=== PATIENT | female | born 1965 | race Caucasian/White ===

== ENCOUNTER 2023-10-21 19:05 | Emergency (ER) | payer MEDICARE, MEDICAID, SELFPAY ==
--- NOTE | 2023-10-21 19:04 | ECG_ITS ---
APPROVED REPORT Exam: Resting ECG HR:87 bpm ECG Measurements Heart Rate 87 AXES LA 209 P 35 QRSd 88 QRS 10 QT 356 T 31 QTc 400 Conclusion SINUS RHYTHM NORMAL ECG Electronically signed by : MARVA CRAWFORD, 10/25/2023 18:23:08
[2023-10-21 19:06] VITALS: BP 160/73; PULSE 87; RESP 18; TEMP 36.9; O2SAT 97; BMI 37.3
--- NOTE | 2023-10-21 19:18 | XR_ITS ---
PROCEDURE INFORMATION: Exam: XR Chest Exam date and time: 10/21/2023 7:39 PM Age: 60 years old Clinical indication: Shortness of breath; Additional info: SOA ll chest pain TECHNIQUE: Imaging protocol: Radiologic exam of the chest. Views: 1 view. COMPARISON: No relevant prior studies available. FINDINGS: Lungs: No evidence of acute pulmonary disease or infiltrates Pleural spaces: No large effusion or pneumothorax. Heart/Mediastinum: No evidence of mediastinal widening or cardiac silhouette enlargement; the mediastinum and heart appear within normal limits for contour and size. Vasculature: There are calcifications of the aortic arch. Bones/joints: No evidence of acute osseous abnormalities within the visualized portions of the thoracic spine and ribs. Osseous structures appear appropriate for patient age. IMPRESSION: No dense parenchymal consolidation, pleural effusion, or pneumothorax.
[2023-10-21 19:27] VITALS: PULSE 70; PULSE 87
[2023-10-21] MEDS: IPRATROPIUM/ALBUTEROL 3 ML NEB 9 ML IH (19:27)
[2023-10-21 19:29] LABS: Basophils # 0.1 K/mm3 (0-0.2); Basophils % 0.9 % (0.1-2.0); Eosinophils # 0.2 K/mm3 (0.0-0.4); Eosinophils % 2.7 % (0.1-12.0); Hematocrit 41.9 % (37.0-47.0); Hemoglobin 13.6 g/dL (12.2-16.2); Lymphocytes # 2.8 K/mm3 (0.7-4.5); Lymphocytes % 34.9 % (10-50); Mean Corpuscular HGB Conc 32.4 g/dL (31.8-35.4); Mean Corpuscular Hemoglobin 31.7 pg (27.0-31.2); Mean Corpuscular Volume 97.8 fl (81-99); Mean Platelet Volume 9.7 fl (7.4-10.4); Monocytes # 0.4 K/mm3 (0.1-1.0); Monocytes % 4.6 % (1.7-9.3); Neutrophils # 4.6 K/mm3 (1.8-7.8); Platelet Count 143 K/mm3 (142-424); Red Blood Count 4.28 M/mm3 (4.20-5.40); Red Cell Distribution Width 13.4 % (11.5-17.5)
[2023-10-21 19:30] LABS: Lactate Venous 1.6 mmol/L (0.4-2.0); VBG Base Excess 0.1 mmol/L (-2.4-2.3); VBG HCO3 25.3 mmol/L (23-30); VBG Oxygen Saturation 85.9 % (50-70); VBG PCO2 44.2 mmol/L (35-51); VBG PH 7.38 mmol/L (7.31-7.41); VBG PO2 49.2 mmol/L (28-40); VBG Total CO2 26.6 mmol/L (23-27)
[2023-10-21 19:34] LABS: INR 1.07 (0.9-1.1); Prothrombin Time 11.9 seconds (10.1-12.5)
[2023-10-21 19:35] LABS: Alanine Aminotransferase 23 U/L (12-78); Albumin/Globulin Ratio 1.4 (1.1-1.8); Aspartate Amino Transferase 25 U/L (14-36); Blood Urea Nitrogen 13 mg/dl (7-17); Calcium 8.9 mg/dl (8.4-10.2); Carbon Dioxide 29 mmol/L (22.0-30.0); Chloride 111 mmol/L (98-107); Creatinine Clearance Estimated 88 mL/min (50-200); Estimated Glomerular Filt Rate 73 ml/min (>60); GFR (African American) 88 ML/MIN (>60); Globulin 2.8 g/dL (1.3-3.2); Glucose 111 mg/dl (74-100); Total Protein,Serum 6.8 g/dl (6.3-8.2)
[2023-10-21 19:36] LABS: Alkaline Phosphatase 84 U/L (38-126); Bilirubin,Total 0.4 mg/dl (0.2-1.3); Sodium 143 mmol/L (136-145)
[2023-10-21 19:41] LABS: Anion Gap 6.8 mEq/L (5-15); Magnesium 1.7 mg/dl (1.6-2.3); Potassium 3.8 mmoL/L (3.5-5.1)
--- NOTE | 2023-10-21 19:44 | HMH.EDCP ---
Discharge Plan Disposition Patient Disposition: Home, Self-Care Prescriptions Prescriptions: New prednisone 20 mg tablet 40 mg PO DAILY 5 Days Qty: 10 0RF doxycycline monohydrate 100 mg capsule 100 mg PO BID 5 Days Qty: 10 0RF Activity Restrictions/Add. Instructions Additional Instructions/Restrictions: Call your family doctor to establish care for this visit to the emergency department and schedule follow-up within 48 hours to ensure improvement. If you have any worsening of your condition or any other concerning signs or symptoms, return to the emergency department or your primary care doctor for further evaluation. Talk to your family doctor about referral to cardiology. Doxycycline twice daily for 5 days. Prednisone each morning for the next 5 days. Clinical Impressions Clinical Impression: Acute exacerbation of chronic obstructive pulmonary disease Print Language Print Language: Turkmen Discharge ED Provider: Mook Tapia General Chief Complaint: Chest Pain Stated Complaint: Chest pain Time Seen by Provider: 10/21/23 19:07 Mode of Arrival: Ambulatory Source of Information: Patient Limitations: No Limitations Description of Symptoms (Recalled from ER Triage Doc. by RN): Patient ambulatory to ED; complains of mid sternal chest pain x2-3 days; Reports pain as worse in the left side of chest when she takes a breath; Slight cough with some SOA. History of Present Illness HPI narrative: Please note that above description of symptoms, in this electronic medical record under categorization of recalled from ER triage doctor by RN are reflective of an initial nursing assessment, however, is not reflective of my full history and physical exam that was personally taken and clarified. Consequentially, this preceding description of symptoms, which may include the patient's categorized chief complaint in the EMR, do not reflect my personal clinical impression, and the ultimate description of history of present illness and patient stated complaints should be deferred to this section of the note. Unless stated otherwise or congruent with this section of the note, additional signs, symptoms, or incongruence should be interpreted as inaccurate with my clinical impression. Related Data Previous Rx's ?Medication ?Instructions ?Recorded doxycycline monohydrate 100 mg 100 mg PO BID 5 days #10 caps 10/21/23 capsule prednisone 20 mg tablet 40 mg (2 x 20 mg) PO DAILY 5 days 10/21/23 #10 tabs Allergies Allergy/AdvReac Type Severity Reaction Status Date / Time No Known Allergies Allergy Verified 10/21/23 20:01 [facility] Disclaimer: The information contained in this section may have been updated after the patient was seen, as this information can be updated by other users. Social History Smoking Status: Current every day smoker alcohol intake: never current occupational status: employed Travel in the last 8 weeks: None ROS Obtained: Yes All systems reviewed & no additional complaints except as documented Physical Exam General General appearance: alert, in no apparent distress, anxious and obese Neck Neck exam: Present trachea midline Chest Chest inspection: Present normal inspection and symmetric chest wall rise Respiratory Respiratory exam: Present wheezes (Bilateral expiratory wheezes without breath sounds); Absent respiratory distress, stridor, accessory muscle use or prolonged expiratory phase Cardiovascular Cardiovascular exam: Present regular rate, normal rhythm and other (Pulses equal and symmetric in upper and lower extremities) Extremities Exam Extremities exam: Absent edema Neurological Exam Neurological exam: Present alert, oriented X3 and CN II-XII intact Skin Skin exam: Present warm and dry; Absent cyanosis, diaphoresis or pallor HEART Score HEART Score HEART Score assessment performed?: Yes HEART Score: 3 Critical Care Critical Care Time Critical Care Time: No Medical Decision Making Medical Records Medical records reviewed: Yes I reviewed the patient's medical records. Paul Inquiry Pt receiving controlled substance: No Paul was queried for this patient: No Vital Signs Vital Signs: 10/21/23 19:06 10/21/23 19:27 10/21/23 19:27 Temperature 98.5 F Temperature Source Axillary Pulse Rate 87 70 Pulse Rate [Right Radial] 87 Respiratory Rate 18 Blood Pressure [Right Arm] 160/73 H Blood Pressure Mean [Right Arm] 102 Blood Pressure Source [Right Arm] Automatic Cuff Blood Pressure Position [Right Arm] Supine 02 Sat by Pulse Oximetry 97 Oxygen Delivery Method Room Air Lab Data Labs: Lab Results 10/21/23 19:14: WBC 8.0, RBC 4.28, Hgb 13.6, Hct 41.9, MCV 97.8, MCH 31.7 H, MCHC 32.4, RDW 13.4, Plt Count 143, MPV 9.7, Neut % (Auto) 57.0, Lymph % (Auto) 34.9, [place] % (Auto) 4.6, Eos % (Auto) 2.7, Baso % (Auto) 0.9, Neut # (Auto) 4.6, Lymph # (Auto) 2.8, [place] # (Auto) 0.4, Eos # (Auto) 0.2, Baso # (Auto) 0.1, PT 11.9, INR 1.07, APTT 33.0 H, D-Dimer 0.59 H, Sodium 143, Potassium 3.8, Chloride 111 H, Carbon Dioxide 29, Anion Gap 6.8, BUN 13, Creatinine 0.80, Estimated Creat Clear 88, Estimated GFR 73, Est GFR ( Amer) 88, Glucose 111 H, Calcium 8.9, Magnesium 1.7, Total Bilirubin 0.4, AST 25, ALT 23, Alkaline Phosphatase 84, Troponin I 0.02, NT-Pro-B Natriuret Pep 488 H, Total Protein 6.8, Albumin 4.0, Globulin 2.8, Albumin/Globulin Ratio 1.4 10/21/23 19:18: VBG pH 7.38, VBG pCO2 44.2, VBG pO2 49.2 H, VBG HCO3 25.3, VBG Total CO2 26.6, VBG O2 Saturation 85.9 H, VBG Base Excess 0.1, VBG Lactic Acid 1.6 10/21/23 22:27: Troponin I 0.02 10/21/23 19:14 10/21/23 19:14 Response Orders (Tests/Meds): ED MEDICATIONS Generic Name Dose Route Start Last Admin Trade Name Freq PRN Reason Stop Dose Admin Sodium Chloride 10 ml 10/21/23 22:13 10/21/23 22:14 Sodium Chloride 0.9% 10ml Syr (Rad Only) IV 11/20/23 22:12 10 ml NEEDED PRN Administration Maintain IV Site Discontinued Medications Generic Name Dose Route Start Last Admin Trade Name Freq PRN Reason Stop Dose Admin Albuterol/Ipratropium 9 ml 10/21/23 19:18 10/21/23 19:27 Ipratropium/Albuterol 3 Ml Neb IH 10/21/23 19:19 9 ml ONCE ONE Administration Aspirin 324 mg 10/21/23 19:18 10/21/23 20:35 Aspirin 81mg Chewable Tablet PO 10/21/23 19:19 324 mg ONCE ONE Administration Iopamidol 70 ml 10/21/23 22:13 10/21/23 22:14 Iopamidol-370 (76%);100ml Bottle IV 10/21/23 22:14 70 ml ONCE ONE Administration Methylprednisolone Sodium Succinate 125 mg 10/21/23 19:18 10/21/23 20:35 Methylprednisolone Sod Succ 125mg Vial IV 10/21/23 19:19 125 mg ONCE ONE Administration Sodium Chloride 50 ml 10/21/23 22:13 10/21/23 22:14 0.9 % Sodium Chloride 50 Ml Vial IV 10/21/23 22:14 50 ml ONCE ONE Administration ORDERS Category Date Time Status CT angio chest PE protocol Stat Cat Scan 10/21/23 20:43 Completed XR chest portable Stat Exams 10/21/23 19:18 Completed Complete Blood Count Auto Diff Stat Lab 10/21/23 19:14 Completed Comprehensive Metabolic Panel Stat Lab 10/21/23 19:14 Completed D-Dimer Stat Lab 10/21/23 19:14 Completed Magnesium Stat Lab 10/21/23 19:14 Completed NT Pro Brain Natriuretic Pep. Stat Lab 10/21/23 19:14 Completed PT INR [Prothrombin Time INR] Stat Lab 10/21/23 19:14 Completed PTT [Activated Partial Thrombo Time] Stat Lab 10/21/23 19:14 Completed Troponin I Q3H Lab 10/21/23 22:27 Completed Troponin I Q3H Lab 10/22/23 01:30 Ordered Troponin I Stat Lab 10/21/23 19:14 Completed VBG [Venous Blood Gas] Stat RT 10/21/23 19:18 Completed MDM Narrative Medical Decision Narrative: 60-year-old female history of COPD presenting with chest pain. Patient states that she has had substernal chest pain that does not radiate for the past couple of days. Nonexertional, nonpositional. States that it is better after using her rescue inhalers, worse after the rescue inhalers wear off. States that it is more of a pressure not associated with vomiting, diaphoresis, or neurologic deficits. No new productive cough, fevers, chills, recent travel, or any other concerns. History was obtained via conversation with patient. On arrival, patient hemodynamically stable, alert, oriented x4, appropriate, GCS 15, moving all extremities spontaneously, pupils equal and reactive to light. Full physical exam performed and significant for anxious appearing woman who is in no acute distress. Lungs with bilateral wheezing anterior and posteriorly. Cardiac exam within normal limits without murmurs gallops rubs, no lower extremity edema, or pulses equal and symmetric in upper and lower extremities. Differential includes COPD exacerbation, pneumonia, bronchitis, ACS, AL, PE, pneumothorax, less likely aortic pathology given nonradiation of pain, no murmur, pulses equal and symmetric in no neurologic deficits. Patient was given aspirin, DuoNebs, Solu-Medrol for symptomatic management and correction of underlying abnormalities. Patient placed on continuous cardiac monitoring and continuous pulse ox with initial blood pressure 160/73, heart rate 70, saturation 97% on room air. Independent interpretation of EKG shows sinus rhythm 87 beats a minute no ST or T wave changes concern for acute ischemia. CA 209, QRS 88, QTc 400 ms. [place] normal. Workup independently interpreted and significant for negative initial troponin,, nonactionable CBC or chemistry. BNP mildly elevated at 488, VBG nonactionable. Coags normal. D-dimer mildly elevated at 0.59. On independent interpretation of imaging, no acute point cardiopulmonary space disease on chest x-ray. See radiology read for full review of final results. Heart score 3. Patient was placed in observation beginning at 7:30 PM in order to rule out evolving AL with delta troponins, obtain imaging and determine need for admission versus home-going. The patient was provided yearly exams, cardiac monitoring while awaiting results. Independent interpretation of results demonstrated negative CT PE, negative delta troponin with undetectably low troponin levels. On reevaluation, patient resting at baseline without any acute complaints, still having chest pressure, although it is a little bit better. I feel this is most likely sales representative advertising of mild COPD exacerbation given patient's progressively worsening symptoms, better with rescue inhalers. At this time, I feel patient is appropriate because patient at baseline without signs or symptoms of clinical decompensation, deemed appropriate for discharge. Results were relayed to patient who voiced understanding and were agreeable to outpatient management and follow up. I discussed my clinical impression with patient and answered all questions. At this time, the evidence for any other entities in the differential is insufficient to warrant any further testing or ED observation. This was explained as well. Advisory was given that persistent or worsening symptoms require further evaluation. I confirmed the understanding of this discussion.. Total observation time 3.5 hours. Parts Fabricator disclaimer Much of this encounter note is an electronic etch operator semiconductor wafers spoken language to printed text. Electronic etch operator semiconductor wafers of the spoken language may permit errors. Although I have reviewed the note, some errors may still exist.
[2023-10-21 19:47] LABS: D-Dimer 0.59 ug/mL (0.0-0.5); Troponin I 0.02 ng/ml (0.00-0.034)
[2023-10-21 19:51] LABS: NT Pro Brain Natriuretic Pep. 488 pg/mL (0-125)
[2023-10-21] MEDS: METHYLPREDNISOLONE SOD SUCC 125MG VIAL 125 MG IV (20:35)
[2023-10-21] MEDS: ASPIRIN 81MG CHEWABLE TABLET 324 MG PO (20:35)
--- NOTE | 2023-10-21 20:37 | PC.NURSE ---
rounded on pt, pt requested a blanket and has been provided with one at this time. pt does not have any questions nor concerns at this time.
--- NOTE | 2023-10-21 20:43 | CT_ITS ---
PROCEDURE INFORMATION: Exam: CTA Chest With Contrast Exam date and time: 10/21/2023 10:08 PM Age: 57 years old Clinical indication: Pain; Chest pressure; Additional info: Elevated dimer, pleuritic R chest wall pain TECHNIQUE: Imaging protocol: Computed tomographic angiography of the chest with contrast. Exam focused on the arteries. 3D rendering (Not supervised by radiologist): MIP and/or 3D reconstructed images were created by the technologist. Radiation optimization: All CT scans at this facility use at least one of these dose optimization techniques: automated exposure control; mA and/or kV adjustment per patient size (includes targeted exams where dose is matched to clinical indication); or iterative reconstruction. Contrast material: ISOVUE; Contrast volume: 70 ml; Contrast route: INTRAVENOUS (IV); COMPARISON: CR XR CHEST PORTABLE 10/21/2023 7:39 PM FINDINGS: Pulmonary arteries: There is no evidence for clinically relevant pulmonary arterial filling defect. Tiny distal filling defects may be present but are of dubious clinical significance. Aorta: There is atherosclerotic disease of the visualized aorta and its major branch vessels. Lungs: Scattered areas of bronchial wall thickening which are likely chronic inflammatory. A few areas of subpleural reticulation are noted, nonspecific. Pleural spaces: Unremarkable. No pneumothorax. No pleural effusion. Heart: Unremarkable. No cardiomegaly. No pericardial effusion. Lymph nodes: There are calcified mediastinal lymph nodes likely reflecting prior granulomatous disease. Spleen: There are multiple calcifications in the spleen most likely reflects small granulomas. Adrenal glands: The adrenal glands are thickened, a nonspecific finding. Bones/joints: There is diffuse degenerative disease of the visualized osseous structures. Soft tissues: Unremarkable. IMPRESSION: 1. No evidence for clinically relevant pulmonary arterial filling defect. 2. No dense parenchymal consolidation, pleural effusion, or pneumothorax.
[2023-10-21] MEDS: 0.9 % SODIUM CHLORIDE 50 ML VIAL IV (22:14)
[2023-10-21] MEDS: IOPAMIDOL-370 (76%);100ML BOTTLE 70 ML IV (22:14)
[2023-10-21] MEDS: SODIUM CHLORIDE 0.9% 10ML SYR (RAD ONLY) 10 ML IV (22:14)
[2023-10-21 23:05] LABS: Troponin I 0.02 ng/ml (0.00-0.034)
[2023-10-21 23:49] VITALS: BP 130/66; PULSE 80; RESP 20; TEMP 36.7; O2SAT 97
== END 2023-10-21 23:52 | disposition home or self-care (01) ==
PROVIDERS: Emergency Provider Emergency Medicine
DX: J44.1 Chronic obstructive pulmonary disease with (acute) exacerbation (principal); R07.9 Chest pain, unspecified; R06.02 Shortness of breath; R05.9 Cough, unspecified; F17.200 Nicotine dependence, unspecified, uncomplicated
CPT/HCPCS: 71045; 71275; 80053; 82803; 83735; 83880; 84484; 85025; 85378; 85610; 85730; 93005; 96374; 99285; J2919; J7620; Q9967

== ENCOUNTER 2023-11-16 12:12 | Outpatient (CLI) | payer MEDICARE, MEDICAID, SELFPAY ==
[2023-11-16 12:39] LABS: Basophils # 0.1 K/mm3 (0-0.2); Basophils % 1.2 % (0.1-2.0); Eosinophils # 0.2 K/mm3 (0.0-0.4); Eosinophils % 2.6 % (0.1-12.0); Hematocrit 44.2 % (37.0-47.0); Hemoglobin 14.1 g/dL (12.2-16.2); Lymphocytes # 2.5 K/mm3 (0.7-4.5); Lymphocytes % 32.9 % (10-50); Mean Corpuscular Hemoglobin 31.8 pg (27.0-31.2); Mean Corpuscular Volume 99.3 fl (81-99); Mean Platelet Volume 9.3 fl (7.4-10.4); Monocytes # 0.4 K/mm3 (0.1-1.0); Monocytes % 5.2 % (1.7-9.3); Neutrophils # 4.3 K/mm3 (1.8-7.8); Neutrophils % 58.2 % (37.0-80.0); Platelet Count 164 K/mm3 (142-424); Red Blood Count 4.45 M/mm3 (4.20-5.40); Red Cell Distribution Width 13.3 % (11.5-17.5); White Blood Count 7.5 K/mm3 (4.8-10.8)
[2023-11-17 16:14] LABS: Anti-Cyclic Citrullinated Pept 6 units (0-19)
[2023-11-20 03:36] LABS: D001-IgE D pteronyssinus <0.10 kU/L (Class 0); D002-IgE D farinae <0.10 kU/L (Class 0); E001-IgE Cat Dander <0.10 kU/L (Class 0); E005-IgE Dog Dander <0.10 kU/L (Class 0); E072-IgE Mouse Urine <0.10 kU/L (Class 0); G002-IgE Bermuda Grass <0.10 kU/L (Class 0); G006-IgE Timothy Grass <0.10 kU/L (Class 0); I006-IgE Cockroach, German <0.10 kU/L (Class 0); Immunoglobulin E, Total 98 IU/mL (6-495); M001-IgE Penicillium chrysogen <0.10 kU/L (Class 0); M002-IgE Cladosporium herbarum <0.10 kU/L (Class 0); M003-IgE Aspergillus fumigatus <0.10 kU/L (Class 0); M006-IgE Alternaria alternata <0.10 kU/L (Class 0); T001-IgE Maple/Box Elder <0.10 kU/L (Class 0); T003-IgE Common Silver Birch <0.10 kU/L (Class 0); T006-IgE Cedar, Mountain <0.10 kU/L (Class 0); T007-IgE Oak, White <0.10 kU/L (Class 0); T008-IgE Elm, American <0.10 kU/L (Class 0); T010-IgE Walnut <0.10 kU/L (Class 0); T011-IgE Maple Leaf Sycamore <0.10 kU/L (Class 0); T014-IgE Cottonwood <0.10 kU/L (Class 0); T015-IgE Ash, White <0.10 kU/L (Class 0); T022-IgE Pecan, Hickory <0.10 kU/L (Class 0); T070-IgE White Mulberry <0.10 kU/L (Class 0); W001-IgE Ragweed, Short <0.10 kU/L (Class 0); W011-IgE Thistle, Russian <0.10 kU/L (Class 0); W014-IgE Pigweed, Common <0.10 kU/L (Class 0); W018-IgE Sheep Sorrel <0.10 kU/L (Class 0)
[2023-11-29 03:43] LABS: Rheumatoid Factor IGM < 7 U (<7)
[2024-01-03 11:48] LABS: Antinuclear Antibodies (ANA) Negative
== END 2023-11-16 23:59 | disposition home or self-care (01) ==
LOC: LAB 12:15
PROVIDERS: Visit Provider Internal Medicine Pulmonary Disease
DX: J84.9 Interstitial pulmonary disease, unspecified (principal); J30.9 Allergic rhinitis, unspecified
CPT/HCPCS: 36415; 82785; 85025; 86003; 86038; 86200; 86225; 86235; 86431

== ENCOUNTER 2023-12-06 07:35 | Outpatient (CLI) | payer MEDICARE, MEDICAID, SELFPAY ==
--- NOTE | 2023-12-06 07:35 | NM_ITS ---
APPROVED REPORT Exam: Nuclear Stress Test Indication: Chest pain, SOB, Palpitations, Fatigue, HTN, High cholesterol, Tobacco use, Family history Patient Location: Outpatient Stress Tech: Valerie Lucio [place] Tech:Lyla Moulton, ARRT, RT (R)(N) Ht: 5 ft 3 in Wt: 222 lbs Bra Size: 42D HR: 65 bpm BP: 123/56 mmHg BSA: 2.02 m2 TID: 1.24 BMI: 39.3 History: Chest pain, SOB, Palpitations, Fatigue, HTN, High cholesterol, Tobacco use, Family history Procedure: Patient received 0.4 mg of intravenous Lexiscan, resting heart rate 65 bpm, resting blood pressure 123/56 mmHg, with Lexiscan maximum heart rate achieved was 95 bpm which is % of the maximum predicted heart rate and blood pressure was 136/61 mmHg. With Lexiscan, patient denied any complaint of chest pain. Cardiac Stress and Resting SPECT Images: Cardiac Stress and Resting SPECT images were obtained using technetium 99m Myoview 32.8 mCi stress and 10.43 mCi at rest. Resting and stress imaging in supine and prone positions demonstrate no evidence of fixed or reversible perfusion defects. There is increase in transient ischemic dilatation ratio (TID 1.24), suggestive of possible multivessel disease or balanced ischemia. Gated imaging demonstrates normal global and regional LV systolic function. LVEF is calculated at 72%. Conclusion: No evidence of fixed or reversible perfusion defects. There is increase in transient ischemic dilatation ratio (TID 1.24), suggestive of possible multivessel disease or balanced ischemia. Gated imaging demonstrates normal global and regional LV systolic function. LVEF is calculated at 72%. Electronically signed by : Lou Kaiser MD 12/06/2023 12:30:45
[2023-12-06] MEDS: ISOTOPE MYOVIEW (PER STUDY) 1 DOSE IV (08:43)
[2023-12-06] MEDS: SODIUM CHLORIDE 0.9% 10ML SYR (RAD ONLY) 10 ML IV ×2 (08:43)
[2023-12-06] MEDS: REGADENOSON 0.4MG/5ML SYRINGE 0.4 MG IV (08:43)
--- NOTE | 2023-12-06 09:08 | CA_ITS ---
APPROVED REPORT Exam: Pharmacologic Technologist: Valerie Lucio Ht: 5 ft 3 in Wt: 222 lbs BSA: 2.02 m2 HR: 59 bpm BP: 123/56 mmHg Rhythm: NSR Indications: Chest pain Medical History Medications: Omeprazole,,,,, Vitamin D3,,,,, Losartan,,,,, Nicotine,,,,, Albuterol,,,,, Diclofenac,,,,, RoSUVASTATIN,,,,, ONdansetron,,,,, Trelegy,,,,, Stress Test Details Test: LEXISCAN HR Resting HR: 65 bpm Max Heart Rate (APMHR): 160 bpm Max HR Achieved: 95 bpm Target HR (85% APMHR): 136 bpm % of APMHR: 59 Recovery HR: 78 bpm BP Resting BP: 123.0/56.0 mmHg Max BP: 136.0/61.0 mmHg Recovery BP: 124.0/64.0 mmHg ECG Resting ECG: Sinus bradycardia Stress ECG: No significant ST changes Arrhythmia: None Clinical Exercise duration: 04:00 min Highest Stage Achieved: Exercise capacity: 1.0 METs Stress ECG Conclusion Symptoms: Chest tightness, dyspnea Arrhythmias/Ectopy: None ST-T Changes: No significant ST changes Conclusion: EKG unremarkable due to Lexiscan infusion. Myoview images reported separately. Test Summary REST . . . . . . . Resting REST 03:11 . . 65 . 123/ 56 . . Stage 1 . . . . . . . Myoview Injected Stage 1 01:00 . . 95 . . . . Stage 2 01:00 . . 88 . 136/ 61 . . Stage 3 . . . . . . . chest tightness Stage 3 01:00 . . 84 . . . . Stage 4 01:00 . . 82 . . . Stop exercise at 04:00 RECOVERY 01:00 . . 78 . . . . RECOVERY 02:00 . . 74 . 126/ 60 . . RECOVERY 03:00 . . 77 . 126/ 60 . . RECOVERY 04:00 . . 76 . 123/ 51 . . RECOVERY 05:00 . . 77 . 124/ 64 . . RECOVERY 05:15 . . 75 . 124/ 64 . . Electronically signed by : Lou Kaiser MD 12/06/2023 12:27:31
== END 2023-12-06 23:59 | disposition home or self-care (01) ==
LOC: RAD 07:35
PROVIDERS: PCP Nurse Practitioner Family; Visit Provider Nurse Practitioner Family
DX: R07.9 Chest pain, unspecified (principal); R06.02 Shortness of breath
CPT/HCPCS: 78452; 93017; 93018; A9502; J2785

== ENCOUNTER 2024-01-02 09:00 | Day surgery (SDC) | payer MEDICARE, MEDICAID, SELFPAY ==
[2024-01-02] VITALS (7 sets, daily range): BP systolic 111–154; BP diastolic 62–85; PULSE 50–64; RESP 16–20; O2SAT 94–97; BMI 38.9
--- NOTE | 2024-01-02 07:12 | IR_ITS ---
APPROVED REPORT Patient Location: Outpatient PROCEDURES Selective coronary angiogram INDICATION Abnormal Myoview Informed consent was obtained prior to the procedure. COMPLICATIONS NONE Estimated Blood Loss: LESS THAN 10 ML TECHNIQUE One percent lidocaine used to anesthetize the right anterior aspect of the wrist. The right radial artery was accessed via the Seldinger technique. A 6 Cymro sheath was placed in the right radial artery. 2.5 mg of Verapamil, 800 mcg of nitroglycerin, 1mg Lidocaine and 5000 U Heparin were given through the arterial sheath. The 6 Cymro JL 3 guide catheter was used to perform selective coronary angiogram. At the end of the procedure the sheath was removed good hemostasis was achieved using Traclet band, patient was transferred to the postop holding area in stable condition. ANGIOGRAPHIC RESULTS The left main artery Normal The left anterior descending artery Mild proximal mid vessel 10% luminal regularities The circumflex artery Codominant mild 10% luminal regularities The right coronary artery Codominant mild 10% luminal regularities The LYNCH ventriculogram reveals Was not performed The left ventricular end-diastolic pressure Was not measured IMPRESSION Mild diffuse 10% luminal irregularities PLAN 1. Medical management with risk factor modification Electronically signed by : Thong Sanz MD 01/02/2024 11:45:19
[2024-01-02 09:33] LABS: Basophils # 0.1 K/mm3 (0-0.2); Basophils % 1.5 % (0.1-2.0); Eosinophils # 0.2 K/mm3 (0.0-0.4); Eosinophils % 2.9 % (0.1-12.0); Hematocrit 44.9 % (37.0-47.0); Hemoglobin 15.2 g/dL (12.2-16.2); Lymphocytes # 2.2 K/mm3 (0.7-4.5); Lymphocytes % 34.3 % (10-50); Mean Corpuscular HGB Conc 33.9 g/dL (31.8-35.4); Mean Corpuscular Hemoglobin 31.5 pg (27.0-31.2); Mean Corpuscular Volume 93.1 fl (81-99); Mean Platelet Volume 9.2 fl (7.4-10.4); Monocytes # 0.4 K/mm3 (0.1-1.0); Monocytes % 5.9 % (1.7-9.3); Neutrophils # 3.6 K/mm3 (1.8-7.8); Neutrophils % 55.2 % (37.0-80.0); Platelet Count 142 K/mm3 (142-424); Red Blood Count 4.83 M/mm3 (4.20-5.40); Red Cell Distribution Width 13.2 % (11.5-17.5); White Blood Count 6.4 K/mm3 (4.8-10.8)
[2024-01-02 09:48] LABS: Blood Urea Nitrogen 15 mg/dl (7-17); Carbon Dioxide 28 mmol/L (22.0-30.0); Chloride 108 mmol/L (98-107); Creatinine Clearance Estimated 118 mL/min (50-200); Estimated Glomerular Filt Rate 73 ml/min (>60); GFR (African American) 89 ML/MIN (>60); Glucose 90 mg/dl (74-100); Sodium 141 mmol/L (136-145)
[2024-01-02] MEDS: diphenhydrAMINE 50MG/ML VIAL 50 MG IV (11:25)
[2024-01-02] MEDS: HEPARIN 1,000 UNITS/500ML NS (CATH LAB) 3000 UNIT IV (11:26)
[2024-01-02] MEDS: HEPARIN 1,000 UNITS/ML 10ML VIAL (CATH LAB) 10000 UNIT IV (11:26)
[2024-01-02] MEDS: LIDOCAINE 1% 10ML MDV 20 ML IJ (11:26)
[2024-01-02] MEDS: NITROGLYCERIN 800MCG/8ML SYR (CATH LAB) 800 MCG IA (11:27)
[2024-01-02] MEDS: VERAPAMIL 2.5MG/ML 2ML VIAL 2.5 MG IV (11:27)
[2024-01-02] MEDS: 0.9 % SODIUM CHLORIDE 500 ML 25 ML IV (11:27)
[2024-01-02] MEDS: MIDAZOLAM HCL 1MG/ML 5ML VIAL 1 MG IV (11:28)
[2024-01-02] MEDS: FENTANYL 100MCG/2ML VIAL 50 MCG IV (11:28)
[2024-01-02] MEDS: IOPAMIDOL-370 (76%);100ML BOTTLE 50 ML IV (14:46)
== END 2024-01-02 14:24 | disposition home or self-care (01) ==
LOC: CATHLAB 09:01
PROVIDERS: PCP Nurse Practitioner; Visit Provider Internal Medicine
DX: I25.118 Atherosclerotic heart disease of native coronary artery with other forms of angina pectoris (principal); R94.39 Abnormal result of other cardiovascular function study; E78.5 Hyperlipidemia, unspecified; I10 Essential (primary) hypertension; F17.210 Nicotine dependence, cigarettes, uncomplicated; Z79.899 Other long term (current) drug therapy; Z82.49 Family history of ischemic heart disease and other diseases of the circulatory system
CPT/HCPCS: 80048; 85025; 93454; 99152; C1725; C1769; J1200; J1644; J2250; J3010; Q9967

== ENCOUNTER 2024-01-06 07:54 | Outpatient (CLI) | payer MEDICARE, MEDICAID, SELFPAY ==
[2024-01-06 08:45] VITALS: PULSE 55; PULSE 56
[2024-01-06] MEDS: ALBUTEROL 0.083% 2.5 MG/3 ML NEB IH (08:45)
== END 2024-01-06 23:59 | disposition home or self-care (01) ==
LOC: RT 07:55
PROVIDERS: PCP Nurse Practitioner Family; Visit Provider Internal Medicine Pulmonary Disease
DX: R06.09 Other forms of dyspnea (principal)
CPT/HCPCS: 94060; 94618; 94640; 94727; 94729; J7613

== ENCOUNTER 2024-01-20 14:56 | Outpatient (CLI) | payer MEDICARE, MEDICAID, SELFPAY ==
--- NOTE | 2024-01-20 14:59 | CA_ITS ---
APPROVED REPORT EXAM: Comprehensive 2D, Doppler, and color-flow Echocardiogram Neurosurgery Spine Physician: Nataliia Garcia RVT Ht: 5 ft 3 in Wt: 225lbs BSA: 2.03 BP: 138/70 mmHg Indications: CP,SOA,SMOKER,HTN,HLD 2D Dimensions LA Volume 67.10 mL LA Volume Index 33.05 mL/m2 (M/F) 16-34 M-Mode Dimensions RVDd 3.57 cm (0.9-2.6) LA Diam 4.61 cm (1.9-4.0) LVDd 4.75 cm (3.5-5.7) LVDs 3.12 cm (3.5-5.7) IVSd 1.41 cm (0.6-1.1) PWd 0.84 cm (0.6-1.1) EF (Teich) 63.30% FS 34.30% EDV (Teich) 104.90 mL TAPSE 2.82 (<1.7) ESV (Teich) 38.50 mL LV Diastology E Decel Time 230 (160-240 msec) E/A Ratio 1.1 Aortic Valve MELBA Index 1.14 cm2/m2 AoV Peak Sadi. 152.0 (50-130 cm/s) AO Peak GR. 9.30 mmHg AO Mean GR. 5.00 (<5 mmHg) AO VTI 36.4 (18-25 cm) MELBA (VTI) 2.38 (2.5-4.5 cm2) Mitral Valve MV E Max Sadi. 92.0 (40-130 cm/s) MV A Velocity 81.0 (40-130 cm/s) E/A Ratio 1.13 MV PHT 67.0 ms Pulmonary Valve PV Peak Velocity 88.0 (50-150 cm/s) Tricuspid Valve TR P. Velocity 294.00 cm/s RAP Estimate 10.00 mmHg RVSP 44.60 mmHg Left Ventricle The left ventricle is normal size. The left ventricular systolic function is normal. The left ventricular ejection fraction is within the normal range. Proximal septal thickening is noted. There is normal LV segmental wall motion. The left ventricular diastolic function is normal. LVEF is 55%. Right Ventricle The right ventricle is mildly dilated. The right ventricular systolic function is normal. Atria Left atrium is mildly dilated. Right atrium is mildly dilated. There is no Doppler evidence of interatrial shunt. Aortic Valve The aortic valve is mildly thickened. There is no aortic valvular stenosis. Trace aortic regurgitation. Mitral Valve The mitral valve leaflets are mildly thickened. Mild mitral regurgitation. No evidence of mitral valve stenosis. Tricuspid Valve Tricuspid valve is grossly normal in structure and function. Trace tricuspid regurgitation. There is insufficient TR jet to estimate RVSP. Pulmonic Valve The pulmonary valve is normal in structure. Trace pulmonic regurgitation. Great Vessels The aortic root is normal in size. The ascending aorta is normal in size. IVC is normal in size and collapses >50% with inspiration. Pericardium There is no pericardial effusion. Other Information Study Quality: Fair Conclusion Normal biventricular systolic function. Mild RV dilation. Mild biatrial dilation. Mild MR. Electronically signed by : Lou Kaiser MD 01/30/2024 00:37:35
== END 2024-01-20 23:59 | disposition home or self-care (01) ==
LOC: RT 14:57
PROVIDERS: PCP Nurse Practitioner; Visit Provider Nurse Practitioner Family
DX: I34.0 Nonrheumatic mitral (valve) insufficiency (principal); I51.7 Cardiomegaly; I25.118 Atherosclerotic heart disease of native coronary artery with other forms of angina pectoris; Z82.49 Family history of ischemic heart disease and other diseases of the circulatory system; E78.2 Mixed hyperlipidemia; R06.02 Shortness of breath
CPT/HCPCS: 93306

== ENCOUNTER 2024-03-06 06:22 | Day surgery (SDC) | payer MEDICARE, MEDICAID, SELFPAY ==
[2024-02-27 09:15] VITALS: BMI 40.7
[2024-03-06] VITALS (10 sets, daily range): BP systolic 121–157; BP diastolic 65–88; PULSE 61–94; RESP 16–18; TEMP 36.3–36.6; O2SAT 93–97
[2024-03-06] MEDS: LACTATED RINGERS 1000ML 1,000 ML 25 ML IV (07:27)
--- NOTE | 2024-03-06 07:52 | EXP.ANES.CKL ---
[facility] Disclaimer: The information contained in this section may have been updated after the patient was seen, as this information can be updated by other users. Medical History Coronary artery disease Family history of coronary artery disease Hyperlipidemia Hypertension SOB (shortness of breath) on exertion Chest pain Tobacco abuse counseling Tobacco abuse Snoring Witnessed episode of apnea Daytime somnolence Family history of asthma Smoking greater than 30 pack years Chest pain, atypical ILD (interstitial lung disease) Surgical History History of partial knee replacement History of knee replacement, total History of kidney surgery History of hysterectomy Family History Other Asthma COPD (chronic obstructive pulmonary disease) Cancer Diabetes Heart attack Hypertension Lung cancer Stroke Social History Smoking Status: Current every day smoker alcohol intake: never substance use type: denies use current occupational status: employed Travel in the last 8 weeks: None [facility] Anesthesia Checklist Patient Identification Patient Identification: Arm Band Structural Data Admitted From: Home Planned Operative Procedure/s: Colonoscopy Consent for Planned Operative Procedure(s) Verified: Yes Verified Documents: Surgical Consent and History and Physical NPO Status Verified Time NPO: 00:00 Additional verifications Anesthesia Reactions: No Airway Assessment Mallampati Score:: Class II C-Spine Mobility Assessed: Yes TMJ Mobility Assessed: Yes Dentition: Good Dentition Neurological Assessment Level of Consciousness: Awake, Alert and Appropriate Anesthesia Plan Anesthesia Risk discussed: Yes Anesthesia Plan: Verified ASA Class: III Anesthesia Type: MAC
--- NOTE | 2024-03-06 08:03 | [facility].SCOPE ---
Procedure: Date: 03/06/24 Patient Date of :: 1965 Procedure Performed:: Colonoscopy with polypectomy Indications:: Screening Performing Provider:: Burt Frederick MD Referring Provider:: . Sedation:: Monitored anesthesia care Procedure:: After informed consent was obtained the patient was taken to the endoscopy suite. Sedation ensued after the patient was transferred to the left lateral decubitus position. Pulse, blood pressure, and oxygen saturation were monitored throughout the procedure. Digital rectal exam revealed no significant abnormality. The colonoscope was placed in position. The entire colon was evaluated. The colonoscope was carefully removed and the patient was transferred to recovery in stable condition. Please see findings and specimens below for detail. Findings:: Bowel preparation moderate to poor Profound spasticity/lack of relaxation Pandiverticulosis Lobulated complex sessile polyp just distal to ileocecal valve marked via tattoo (not removed secondary to transient visualization) Multiple complex polyps (see specimens) Specimens:: Sessile lobulated 6 mm periappendiceal polyp (cold snare and cold biopsy forceps) 9 mm ridge polyp of the cecum (hot snare, cold snare, and cold biopsy forceps) 1.5 cm sessile lobulated proximal right colon polyp (hot snare) Complex lobulated adjacent 7/8 mm polyps of the right colon (hot snare) Additional complex lobulated right colon polyp (hot snare) Sessile lobulated distal right colon polyp (hot snare and cold biopsy forceps Cluster of transverse colon polyps (hot snare) Recommendations:: Timing of repeat colonoscopy is pending pathology will likely be around 3 months with alternate/extended bowel preparation. The patient's repeat colonoscopy will be deferred to the gastroenterology service secondary to above-stated findings (specifically polyp just distal ileocecal valve that was tattooed but not removed). Complications:: No immediate Estimated blood obtained (mL): 1 Colonoscopy Component Colonoscopy Component Was a colonoscopy performed during today's procedure?: Yes Recommended follow up colonoscopy of at least 10 years?: No If no, follow up colonoscopy recommended in ___ years?: (See above) Reason for not recommending >/= 10 yr follow-up interval?: (See above)
--- NOTE | 2024-03-06 09:55 | SUR.PHASEII ---
Per abbi Her for patient to have coffee
== END 2024-03-06 11:34 | disposition home or self-care (01) ==
PROVIDERS: PCP Nurse Practitioner; Visit Provider Surgery
PROC: 0DJD8ZZ Inspection of Lower Intestinal Tract, Via Natural or Artificial Opening Endoscopic (ICD-10-PCS; CPT 45380; principal; 2024-03-06 08:30)
DX: K63.5 Polyp of colon (principal); D12.2 Benign neoplasm of ascending colon; D12.1 Benign neoplasm of appendix; Z12.11 Encounter for screening for malignant neoplasm of colon; K57.30 Diverticulosis of large intestine without perforation or abscess without bleeding
CPT/HCPCS: 45380; 45385; J2704; J7120

== ENCOUNTER → 2024-03-07 20:23 | Outpatient (CLI) | payer MEDICARE, MEDICAID, SELFPAY | LOC: SL 20:26 | PROVIDERS: PCP Family Medicine; Visit Provider Internal Medicine Pulmonary Disease | DX: G47.33 Obstructive sleep apnea (adult) (pediatric) (principal); E66.9 Obesity, unspecified; J44.9 Chronic obstructive pulmonary disease, unspecified; R06.83 Snoring; G47.10 Hypersomnia, unspecified | CPT/HCPCS: 95810 ==

== ENCOUNTER 2024-04-06 14:47 | Outpatient (CLI) | payer MEDICARE, MEDICAID, SELFPAY ==
--- NOTE | 2024-04-06 14:57 | XR_ITS ---
FINAL REPORT CLINICAL HISTORY: . FINDINGS: Three views show no evidence of acute displaced fracture or dislocation of the visualized bony architecture. There are mild diffuse osteoarthritic changes. The bones are osteopenic. There is no evidence of erosion. IMPRESSION: Mild degenerative changes. Reviewed, Interpreted and Dictated by Abby Shaw MD Transcribed by Stacy Velez Authenticated and [facility]
--- NOTE | 2024-04-06 14:57 | XR_ITS ---
FINAL REPORT CLINICAL HISTORY: BURSITIS FINDINGS: Three views show no evidence of acute displaced fracture or dislocation of the visualized bony architecture. There are mild to moderate diffuse osteoarthritic changes, slightly worse than the right. Findings most significantly involve the DIP and PIP joints. There is no evidence of erosion. IMPRESSION: Mild to moderate degenerative changes Reviewed, Interpreted and Dictated by Abby Shaw MD Transcribed by Stacy Velez Authenticated and [facility]
== END 2024-04-06 23:59 | disposition home or self-care (01) ==
LOC: RAD 14:48
PROVIDERS: PCP Nurse Practitioner; Visit Provider Nurse Practitioner
DX: M71.9 Bursopathy, unspecified (principal)
CPT/HCPCS: 73130

== ENCOUNTER 2024-06-21 10:35 | Outpatient (CLI) | payer MEDICARE, MEDICAID, SELFPAY ==
--- NOTE | 2024-06-21 10:37 | CT_ITS ---
FINAL REPORT TECHNIQUE: Axial imaging of the right shoulder was obtained without contrast. This study was performed with techniques to keep radiation doses as low as reasonably achievable (ALARA). Individualized dose reduction techniques using automated exposure control or adjustment of mA and/or kV according to the patient's size were employed. CLINICAL HISTORY: RT SHOULDER PAIN, no known injury FINDINGS: There is no acute fracture or dislocation. There are mild hypertrophic changes of the acromioclavicular joint. Glenohumeral joint is preserved. Soft tissues are unremarkable. IMPRESSION: Mild hypertrophic changes of the acromioclavicular joint. Otherwise, unremarkable exam. Reviewed, Interpreted and Dictated by Rickie Hamlin MD Transcribed by Chrissy Perez Authenticated and [facility]
== END 2024-06-21 23:59 | disposition home or self-care (01) ==
LOC: RAD 10:35
PROVIDERS: PCP Nurse Practitioner; Visit Provider Nurse Practitioner
DX: M25.511 Pain in right shoulder (principal)
CPT/HCPCS: 73200

== ENCOUNTER 2024-06-25 10:38 | Day surgery (SDC) | payer MEDICARE, MEDICAID, SELFPAY ==
[2024-06-20 17:22] VITALS: BMI 41.1
[2024-06-25 11:10] VITALS: BP 116/60; PULSE 60; RESP 18; TEMP 36.2; O2SAT 98
[2024-06-25] MEDS: LACTATED RINGERS 1000ML 1,000 ML 50 ML IV (11:23)
--- NOTE | 2024-06-25 11:58 | EXP.ANES.CKL ---
[facility] Disclaimer: The information contained in this section may have been updated after the patient was seen, as this information can be updated by other users. Medical History GARCÍA (obstructive sleep apnea) Allergic rhinitis Coronary artery disease Family history of coronary artery disease Hyperlipidemia Hypertension SOB (shortness of breath) on exertion Chest pain Tobacco abuse counseling Tobacco abuse Snoring Witnessed episode of apnea Daytime somnolence Family history of asthma Smoking greater than 30 pack years Chest pain, atypical ILD (interstitial lung disease) Surgical History History of colonoscopy History of partial knee replacement History of knee replacement, total History of kidney surgery History of hysterectomy Family History Other Asthma COPD (chronic obstructive pulmonary disease) Cancer Diabetes Heart attack Hypertension Lung cancer Stroke Social History Smoking Status: Current every day smoker alcohol intake: never substance use type: denies use current occupational status: unemployed and disabled Travel in the last 8 weeks?: None Have you lived/traveled outside US in past 30 days?: No Contact w/someone who lives/traveled outside US past 30 days?: No Exposure to someone with infectious disease in past 14 days?: No Do you have a fever (greater than 100.4 F or 38 C)?: No Have you tested positive for COVID-19?: No Exposed to someone with COVID-19 in past 14 days?: No Do you have a sore throat?: No Do you have a cough?: No Do you have any weakness?: No Do you have any diarrhea?: No Are you experiencing any unusual bleeding?: No Do you have any muscle aches/pain?: No Do you have any abdominal pain?: No Are you experiencing loss of taste or smell?: No [facility] Anesthesia Checklist Patient Identification Patient Identification: Arm Band Structural Data Admitted From: Home Planned Operative Procedure/s: Colonoscopy Consent for Planned Operative Procedure(s) Verified: Yes Verified Documents: Surgical Consent and History and Physical NPO Status Verified Time NPO: 06:30 (finished prep) Additional verifications Anesthesia Reactions: No Airway Assessment Mallampati Score:: Class II C-Spine Mobility Assessed: Yes TMJ Mobility Assessed: Yes Dentition: Edentulous Neurological Assessment Level of Consciousness: Awake, Alert and Appropriate Anesthesia Plan Anesthesia Risk discussed: Yes Anesthesia Plan: Verified ASA Class: III Anesthesia Type: MAC
--- NOTE | 2024-06-25 12:13 | EXP.HP ---
History of Present Illness *Admission Date: 06/25/24 *Reason for visit:: Multiple adenomatous colon polyps/advanced adenomas *History of present illness: Mrs. Houser is a 58-year-old female who is here for follow-up surveillance colonoscopy after finding multiple advanced adenomatous polyps by Dr. Burt Frederick M.D in February 2024. The examination is deemed medically necessary for surveillance colonoscopy. The patient has been seen, interviewed and examined prior to the procedure by both myself and the anesthesia provider. [facility] Disclaimer: The information contained in this section may have been updated after the patient was seen, as this information can be updated by other users. Medical History (Updated 06/25/24 @ 12:14 by Boogie Marcelo II, MD) GARCÍA (obstructive sleep apnea) Allergic rhinitis Coronary artery disease Family history of coronary artery disease Hyperlipidemia Hypertension SOB (shortness of breath) on exertion Chest pain Tobacco abuse counseling Tobacco abuse Snoring Witnessed episode of apnea Daytime somnolence Family history of asthma Smoking greater than 30 pack years Chest pain, atypical ILD (interstitial lung disease) Surgical History History of colonoscopy History of partial knee replacement History of knee replacement, total History of kidney surgery History of hysterectomy Family History Other Asthma COPD (chronic obstructive pulmonary disease) Cancer Diabetes Heart attack Hypertension Lung cancer Stroke Social History Smoking Status: Current every day smoker alcohol intake: never substance use type: denies use current occupational status: unemployed and disabled Travel in the last 8 weeks?: None Have you lived/traveled outside US in past 30 days?: No Contact w/someone who lives/traveled outside US past 30 days?: No Exposure to someone with infectious disease in past 14 days?: No Do you have a fever (greater than 100.4 F or 38 C)?: No Have you tested positive for COVID-19?: No Exposed to someone with COVID-19 in past 14 days?: No Do you have a sore throat?: No Do you have a cough?: No Do you have any weakness?: No Do you have any diarrhea?: No Are you experiencing any unusual bleeding?: No Do you have any muscle aches/pain?: No Do you have any abdominal pain?: No Are you experiencing loss of taste or smell?: No Other Medical History Have you received the Pneumonia Vaccine: Yes Review of Systems Review of Systems Review of systems (narrative): Negative *Cardiovascular Comments: Negative *Gastrointestinal Comments: Negative *Genitourinary Comments: Negative *Musculoskeletal Comments: Negative *Neurologic Comments: Negative Meds Home Medications and Allergies Home Medications ?Medication ?Instructions ?Recorded ?Confirmed ?Type albuterol sulfate 90 mcg/actuation 2 inh inhalation Q4-6H PRN SOB 11/16/23 06/25/24 History breath activated powder inhaler cholecalciferol (vitamin D3) 50 50 mcg PO DAILY 11/16/23 06/25/24 History mcg (2,000 unit) capsule losartan 50 mg tablet 50 mg PO DAILY 11/16/23 06/25/24 History omeprazole 20 mg capsule,delayed 20 mg PO DAILY 11/16/23 06/25/24 History release ondansetron 4 mg disintegrating 4 mg PO TID PRN Nausea 11/16/23 06/25/24 History tablet rosuvastatin 10 mg tablet 10 mg PO DAILY 11/16/23 06/25/24 History aspirin 81 mg tablet,delayed 81 mg PO DAILY #30 tabs 11/24/23 06/25/24 Rx release (Adult Low Dose Aspirin) tizanidine 4 mg tablet 4 mg PO BID 04/24/24 06/25/24 History fluticasone propionate 50 1 spray intranasal DAILY 90 days 05/21/24 06/25/24 Rx mcg/actuation nasal #16 grams spray,suspension (Flonase Allergy Relief) metoprolol succinate 25 mg 25 mg PO DAILY #30 tabs 06/04/24 06/25/24 Rx tablet,extended release 24 hr (Toprol XL) sod picosulf 10 mg-magnes 3.5 175 ml PO DAILY Bowel Prep 2 doses 06/11/24 06/25/24 Rx gram-citric 12 gram/175 mL oral #350 mL solution (Clenpiq) hydrocodone 7.5 mg-acetaminophen 1 tab PO NEEDED PRN Pain 06/25/24 06/25/24 History 325 mg tablet New Prescriptions to Start Prescriptions: Allergies Allergy/AdvReac Type Severity Reaction Status Date / Time No Known Allergies Allergy Verified 06/25/24 11:17 Exam Data for Last 24 hours Vital signs and Labs for Last 24 Hours: Temp Pulse Resp BP Pulse Ox O2 Del Method 97.2 F L 60 18 116/60 98 Room Air 06/25/24 11:10 06/25/24 11:10 06/25/24 11:10 06/25/24 11:10 06/25/24 11:10 06/25/24 11:10 *Routine HEENT Exam Head: Present normocephalic Eye: Present EOMI and PERRL ENT: Present mucous membranes moist *Routine Neck Exam Neck: Present supple *Routine Respiratory Exam Respiratory: Present CTA bilaterally *Routine Cardiovascular Exam Cardiovascular: Present RRR *Routine Abdominal Exam Abdominal: Present soft and normoactive bowel sounds; Absent tenderness *Routine Rectal Exam Rectal:: deferred *Routine Genitalia Exam Genitalia:: deferred *Routine Extremities Exam Extremities: Absent cyanosis, clubbing or edema *Routine Skin Exam Skin: Present warm; Absent rash *Routine Neurological Exam Neurological: Present alert and oriented X3 Assessment and Plan *Assessment and plan (1) Personal history of adenomatous and serrated colon polyps: Status: Acute Category: Medical Code(s): Z86.0101 - Personal history of adenomatous and serrated colon polyps Plan A/P: 1. Personal history of multiple adenomatous colon polyps that were large, complex and advanced is the preprocedural diagnosis. The patient will be anesthetized/sedated using MAC sedation. The patient has been seen and examined. Cardiac and lung assessment prior to the examination is stable. Proceed with planned repeat surveillance colonoscopy.
--- NOTE | 2024-06-25 12:23 | P.PCN_ITS ---
[facility] Procedure Note Date: 06/25/24 Time: 12:48 Procedure Note:: Colonoscopy Procedure Report: Colonoscopy with cold snare polypectomy Endoscopist: Boogie Marcelo II, MD Referring physician: Annetta WHITE Date of Procedure: June 25, 2024 Equipment: Olympus 190 variable stiffness pediatric colonoscope Sedation: MAC sedation Indication: Mrs. Houser is a 58-year-old female who underwent colonoscopy on March 06, 2024 (Burt Frederick M.D.) and was found to have multiple complex polyps especially in the right colon. The pathology showed a mixture of tubular and serrated adenomas without dysplasia. The bowel preparation was moderate to poor with spasticity. Dr. Burt Frederick M.D. felt that 3-month colonoscopy with extended bowel preparation appropriate. The largest polyp was tattooed just distal to the ileocecal valve but not removed. The patient reports some chronic constipation. She reports no rectal bleeding, abdominal pain, weight loss or family history of colon cancer. Procedure: Prior to the procedure, a history and physical exam was performed, and patient's medications and allergies were reviewed. The risks, benefits and alternatives of the sedation and procedure were discussed with the patient. All questions were answered and informed consent was obtained. The patient was brought to the procedure room. Patient identification and proposed procedure were verified by the physician and the nurse. The patient was placed in a left lateral decubitus position and the scope was passed under direct vision. Throughout the procedure, the patient's blood pressure, pulse, and oxygen saturations were monitored continuously. The colonoscopy was accomplished without difficulty. The patient tolerated the procedure well. Findings: On digital rectal examination there was normal rectal tone. There were no external hemorrhoids. The colonoscope was introduced through the anal canal to the rectum and advanced to the cecum. The ileocecal valve and appendiceal orifice were identified. The scope was advanced a short distance into the ileum which appeared grossly normal. The scope was then withdrawn into the colon. There were 4 polyps (cecum x 1 (7 mm), ascending x 1 (behind haustral fold and was 11 mm) and transverse x 2 (distal transverse 6 and 12 mm)). All of these were removed via cold snare polypectomy. Complete resection of polyps performed with 1 piecemeal resection of largest polyp. The remaining cecum, ascending and transverse colon and mucosa were grossly normal. There were scattered diverticuli throughout the descending and sigmoid colon (LEFT colon). The rectum itself was normal. Upon retroflexion within the rectum there were grade 2 i nternal hemorrhoids. The preparation was good throughout with [place] Preparation Score of 8 out of 9. The cecal time was 17 minutes. Impression: 1. Colonic polyps x 4 (6, 7, 11 and 12 mm) 2. Left-sided diverticulosis 3. Grade 2 internal hemorrhoids Plan: I will follow-up the polyp histology and recommend repeat surveillance colonoscopy again in 3 years. I will discuss the findings with the patient and family. I would encourage a fiber bowel regimen on a long-term daily maintenance basis.
[2024-06-25 12:51] VITALS: BP 82/51; PULSE 68; RESP 16; TEMP 36.7; O2SAT 97
[2024-06-25 13:01] VITALS: BP 96/70; PULSE 65; RESP 17; O2SAT 99
[2024-06-25 13:11] VITALS: BP 143/98; PULSE 69; RESP 17; O2SAT 99
[2024-06-25 13:21] VITALS: BP 150/86; PULSE 64; RESP 17; O2SAT 99
== END 2024-06-25 13:50 | disposition home or self-care (01) ==
PROVIDERS: PCP Nurse Practitioner; Visit Provider Internal Medicine Gastroenterology
PROC: 0DJD8ZZ Inspection of Lower Intestinal Tract, Via Natural or Artificial Opening Endoscopic (ICD-10-PCS; CPT 45378; principal; 2024-06-25 12:30)
DX: Z12.11 Encounter for screening for malignant neoplasm of colon (principal); Z86.0101 Personal history of adenomatous and serrated colon polyps; K59.09 Other constipation; D12.0 Benign neoplasm of cecum; D12.3 Benign neoplasm of transverse colon; D12.2 Benign neoplasm of ascending colon; K57.30 Diverticulosis of large intestine without perforation or abscess without bleeding; K64.1 Second degree hemorrhoids
CPT/HCPCS: 45385; J7120

== ENCOUNTER 2024-08-29 14:57 | Outpatient (CLI) | payer MEDICARE, MEDICAID, SELFPAY ==
--- OUTSIDE RECORDS SUMMARY | 2024-08-29 15:00 | XMS_ITS | Clinical Summary ---
Author Organization [facility] Address [address] [place] [address] Care Team Providers Care Global Clinical Leader Name Role Phone Stephanie Ramos APRN - FREDRICK Primary Care Provider + Allergies Active Allergy Reactions Criticality Noted Date Comments Azithromycin 02/24/2018 Medications ondansetron (ZOFRAN-ODT) 4 MG disintegrating tabletIndications: Nausea Take 1 tablet by mouth 3 times daily as needed for Nausea or Vomiting 21 tablet 4 Active baclofen (LIORESAL) 10 MG tabletIndications: Multiple joint pain Take 1 tablet by mouth 3 times daily 90 tablet 2 4 Active diclofenac sodium (VOLTAREN) 1 % GELIndications:Mul tiple joint pain,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) Apply 4 g topically 4 times daily 150 g 1 4 Active albuterol sulfate HFA (PROVENTIL;VENTOLI N;PROAIR) 108 (90 Base) MCG/ACT inhalerIndications :Tobacco dependence INHALE 2 PUFFS BY MOUTH FOUR TIMES DAILY NEEDED 8.5 g 3 4 Active losartan (COZAAR) 50 MG tabletIndications: Primary hypertension TAKE 1 TABLET BY MOUTH DAILY FOR BLOOD PRESSURE 30 tablet 3 4 Active TRELEGY ELLIPTA 200-62.5-25 MCG/ACT AEPB inhalerIndications :Chronic obstructive pulmonary disease, unspecified COPD type (HCC) INHALE 1 PUFF INTO THE LUNGS DAILY 60 each 3 4 Active doxycycline monohydrate (MONODOX) 100 MG capsule TAKE 1 CAPSULE BY MOUTH TWICE DAILY FOR 5 DAYS 4 Active predniSONE (DELTASONE) 20 MG tablet TAKE 2 TABLETS BY MOUTH ONCE DAILY FOR 5 DAYS 4 Active loratadine (CLARITIN) 10 MG tabletIndications: Seasonal allergies Take 1 tablet by mouth daily 30 tablet 3 4 Active omeprazole (PRILOSEC) 20 MG delayed release capsuleIndications :Gastroesophageal reflux disease, unspecified whether esophagitis present TAKE 1 CAPSULE BY MOUTH DAILY 90 capsule 1 4 Active rosuvastatin (CRESTOR) 10 MG tabletIndications: Mixed hyperlipidemia Take 1 tablet by mouth daily 90 tablet 4 Active Hospital, Clinic, or Other Facility Administered Medication Ordered Dose Route Frequency Start Date End Date Status methylPREDNISolone sodium succ (SOLU-MEDROL) injection 125 mgIndications:Pain and swelling of left forearm 125 mg IV ONCE 01/05/2023 Active Active Problems Problem Noted Date Diagnosed Date Vitamin D deficiency 12/27/2022 Primary hypertension 12/23/2022 Mixed hyperlipidemia 12/23/2022 Gastroesophageal reflux disease 12/23/2022 Multiple joint pain 12/23/2022 Tobacco dependence 12/23/2022 Chronic fatigue 12/23/2022 Numbness and tingling in both hands 12/23/2022 Seasonal allergies 12/16/2022 Immunizations Immunization Administration Dates Next Due Influenza, FLUARIX, FLULAVAL , FLUZONE (age 6 mo+) and AFLURIA, (age 3 y+), Quadv PF, 0.5mL 12/23/2022 TDaP, ADACEL (age 10y-64y), BOOSTRIX (age 10y+), IM, 0.5mL 12/17/2019 Family History Medical History Relation Name Comments Diabetes Father Diabetes Mother Relation Name Status Comments Father Mother Social History Tobacco Use Types Packs/Day Years Used Date Smoking Tobacco: Every Day Cigarettes 0.5 35 Smokeless Tobacco: Never Tobacco Cessation:Ready to Q uit: No; Counseling Given: Yes Alcohol Use Standard Drinks/Week Comments No 0 (1 standard drink = 0.6 oz pur e alcohol) AUDIT-C Answer Date Recorded Q1: How often do you have a drink containing alcohol? Never 06/13/2023 Q2: How many drinks containi ng alcohol do you have on a typical day when you are drinking? Patient does not drink Q3: How often do you have si x or more drinks on one occasion? Never 06/13/2023 Overall Financial Resource Strain (CARDIA) Answe r Date Recorded How hard is it for you to pa y for the very basics like food, housing, medical care, and heating? Not hard at all 06/13/2023 PHQ-2 Answer Date Recorded PHQ-9 Total Score 0 06/13/2023 Exercise Vital Sign Answer Date Recorde d On average, how many days pe r week do you engage in moderate to strenuous exercise (like a brisk walk)? 1 day 06/13/2023 On average, how many minutes do you engage in exercise at this level? 60 min 06/13/2023 Hunger Vital Sign Answer Date Recorded Within the past 12 months, y ou worried that your food would run out before you got the money to buy more. Never true 06/13/19 24 Within the past 12 months, t he food you bought just didn't last and you didn't have money to get more. Never true 06/13/2023 PRAPARE - Transportation Answer Date Re corded Lack of Transportation (Medical) Not on file 06/13/2023 In the past 12 months, has l ack of transportation kept you from meetings, work, or from getting things needed for daily living? No 06/13/2023 Housing Stability Vital Sign Answer Alan e Recorded Unable to Pay for Housing in the Last Year Not o n file 06/13/2023 Number of Places Lived in the Last Year Not on f ile 06/13/2023 In the last 12 months, was t here a time when you did not have a steady place to sleep or slept in a residential (including now)? No 06/13/2023 Food Insecurity Answer Date Recorded Within the past 12 months, y ou worried that your food would run out before you got the money to buy more. 1 06/13/2023 Within the past 12 months, t he food you bought just didn't last and you didn't have money to get more. 1 06/13/2023 Interpersonal Safety Domain Source: IP Abuse Scr eening Answer Date Recorded Read-Only, Retired: Physical Abuse Denies 05/25/2023 Read-Only, Retired: Verbal Abuse Denies 05/25/2023 Read-Only, Retired: Emotional abuse Denies 05/25/2023 Read-Only, Retired: Financial Abuse Denies 05/25/2023 Read-Only, Retired: Sexual abuse Denies 05/25/2023 Comments No Sex and Gender Information Value Date Recorded Sex Assigned at Not on file Legal Sex Female 10:20 PM EDT Gender Identity Not on file Sexual Orientation Not on file Last Filed Vital Signs Vital Sign Reading Time Taken Comments Blood Pressure 114/62 10/26/2023 1:30 PM EDT Pulse 78 10/26/2023 1:30 PM EDT Temperature 37 C (98.6 F) 10/26/2023 1:30 PM EDT Respiratory Rate 18 10/26/2023 1:30 PM EDT Oxygen Saturation 96% 10/26/2023 1:30 PM EDT ra Inhaled Oxygen Concentration - - Weight 101.6 kg (224 lb) 10/26/2023 1:30 PM EDT Height 160 cm (5' 3 ) 10/26/2023 1:30 PM EDT Body Mass Index 39.68 10/26/2023 1:30 PM EDT Plan of Treatment Health Maintenance Due Date Last Done Comments HIV screen 10/27/1978 Hepatitis C screen 10/27/1981 Colonoscopy 10/27/2008 Colorectal Cancer Screen 10/27/2008 FIT/FOBT: Average risk 10/27/2008 Fecal-DNA (Cologuard): Average risk 10/27/2008 Sigmoidoscopy/CT colonography 10/27/2008 Shingles vaccine (2 of 2) 12/06/2022 10/11/2022 COVID-19 Vaccine (1 - 2023-2 5 season) 2023 Respiratory Syncytial Virus (RSV) or age 60 yrs+ (1 - Risk 60-74 years 1-dose series) 2023 Annual Wellness Visit (Medicare Advantage) 02/22/2024 06/13/2023 Depression Monitoring 06/12/2024 06/13/2023 Breast cancer screen 07/13/2024 07/13/2022, 11/09/2019 Lipids 07/18/2024 07/19/2023, 12/23/2022 Flu vaccine (#1) 09/21/2024 12/23/2022, 04/02/2021 DTaP/Tdap/Td vaccine (3 - Td or Tdap) 06/30/2032 06/30/2022, 12/17/2019 Pneumococcal 0-49 years Vaccine Discontinued 06/30/2022, 04/02/2021 Pneumococcal 50+ years Vaccine Completed 06/30/2022, 04/02/2021 Diabetes screen Discontinued 12/23/2022 Depression Screen Discontinued 06/13/2023 Hepatitis A vaccine Aged Out No longe r eligible based on patient's age to complete this topic Hepatitis B vaccine Aged Out No longe r eligible based on patient's age to complete this topic Hib vaccine Aged Out No longer eligi ble based on patient's age to complete this topic Meningococcal (ACWY) vaccine Aged Out No longer eligible based on patient's age to complete this topic Meningococcal B vaccine Aged Out No l onger eligible based on patient's age to complete this topic Polio vaccine Aged Out No longer elig ible based on patient's age to complete this topic Procedures Procedure Name Priority Date/Time Associated Diagnosis Comments LIPID PANEL Routine 07/19/2023 9:35 AM EDT Mixed hyperlipidemia HEMOGLOBIN A1C Routine 12/23/2022 3:25 PM EDT Elevated glucose HM MAMMOGRAPHY Routine 07/13/2022 from Last 3 Months or Most Recently Relevant to Health Maintenance Results * (ABNORMAL) Lipid Panel (07/19/2023 9:35 AM EDT) [facility] Signature Cholesterol, Total 134 0 - 200 mg/dL 07/19/2023 11:41 AM EDT [facility] Triglycerides 111 0 - 249 mg/dL 07/19/19 24 11:41 AM EDT [facility] HDL 39(L) 40 - 60 mg/dL 07/19/2023 11:41 AM EDT [facility] Comment: An HDL cholesterol less than 40 mg/dL is low and constitutes a coronary heart disease risk factor. An HDL cholesterol greater than 60 mg/dL is a negative risk factor for coronary heart disease. LDL Cholesterol 73 <100 mg/dL 11:41 AM EDT [facility] VLDL Cholesterol Calculated 22 Not Established mg/dL 07/19/2023 11:41 AM EDT [facility] Blood BLOOD SPECIMEN / Unknown 07/19/2023 9:35 AM EDT 07/19/2023 11:37 AM EDT us Stephanie Ramos MEDICAL CENTER DIRECTOR - FRAME ASSEMBLER CHEMISTRY ORDERABLES Fin al Result Performing Organization Address City/[facility]/ZIP Co de Phone Number [facility] [address] [phone] * Hemoglobin A1C (12/23/2022 3:25 PM EDT) Hemoglobin A1C 5.5 See comment % 12/24/2022 11:01 AM EDT [facility] Comment: Comment: Diagnosis of Diabetes: > or = 6.5% Increased risk of diabetes (Prediabetes): 5.7-6.4% Glycemic Control: Non Adults: <7.0% : <6.0% Blood BLOOD SPECIMEN / Unknown 12/23/2022 3:25 PM EDT 12/24/2022 11:54 AM EDT us Georgie Gipson MEDICAL CENTER DIRECTOR - POWERSAW SUPERVISOR CHEMISTRY ORDERABLES Fin al Result Performing Organization Address City/[facility]/ZIP Co de Phone Number [facility] [address] [phone] * HM MAMMOGRAPHY (07/13/2022) Anatomical Region Laterality Modality Other Historical Provider HEALTH MAINTENANCE Final Result from Last 3 Months or Most Recently Relevant to Health Maintenance Insurance BCBS MEDICARE on file Care Teams Global Clinical Leader Relationship Specialty Start Date End Date Stephanie Ramos APRN - NP [address] [place] [address] PCP - General Nurse Practitioner 06/13/23
--- OUTSIDE RECORDS SUMMARY | 2024-08-29 15:01 | XMS_ITS | Encounter Summary ---
Author Organization [facility] Address [address] [place] [address] Care Team Providers Care Driver Trainer Name Role Phone Stephanie Ramos APRN - RADIOGRAPHER TECHNOLOGIST Primary Care Provider + Encounter Details Date Type Department Care Team (Late st Contact Info) Description 12/24/2022 Orders Only [address] [address] Provider, MD Chantell Social History Tobacco Use Types Packs/Day Years Used Date Smoking Tobacco: Every Day Cigarettes 0.5 35 Smokeless Tobacco: Never Alcohol Use Standard Drinks/Week Comments No 0 (1 standard drink = 0.6 oz pur e alcohol) Overall Financial Resource Strain (CARDIA) Answe r Date Recorded How hard is it for you to pa y for the very basics like food, housing, medical care, and heating? Somewhat hard 12/23/2022 PHQ-2 Answer Date Recorded PHQ-9 Total Score 2 12/16/2022 Hunger Vital Sign Answer Date Recorded Worried About Running Out of Food in the Last Ye ar Not on file 12/23/2022 Within the past 12 months, t he food you bought just didn't last and you didn't have money to get more. Never true 12/23/2022 PRAPARE - Transportation Answer Date Re corded Lack of Transportation (Medical) Not on file 12/23/2022 In the past 12 months, has l ack of transportation kept you from meetings, work, or from getting things needed for daily living? No 12/23/2022 Housing Stability Vital Sign Answer Alan e Recorded Unable to Pay for Housing in the Last Year Not o n file 12/23/2022 Number of Places Lived in the Last Year Not on f ile 12/23/2022 In the last 12 months, was t here a time when you did not have a steady place to sleep or slept in a correction (including now)? No 12/23/2022 Food Insecurity Answer Date Recorded Within the past 12 months, y ou worried that your food would run out before you got the money to buy more. Not on file 12/24/19 23 Within the past 12 months, t he food you bought just didn't last and you didn't have money to get more. 1 12/23/2022 Comments No Sex and Gender Information Value Date Recorded Sex Assigned at Not on file Legal Sex Female 10:20 PM EDT Gender Identity Not on file Sexual Orientation Not on file documented as of this encounter Plan of Treatment Not on file documented as of this encounter Procedures Procedure Name Priority Date/Time Associated Diagnosis Comments MAMMOGRAPHY Routine 07/13/2022 documented in this encounter Results * HM MAMMOGRAPHY (07/13/2022) Anatomical Region Laterality Modality Other us Historical Provider HEALTH MAINTENANCE Final Result documented in this encounter Visit Diagnoses Not on filedocumented in this encounter Care Teams Driver Trainer Relationship Specialty Start Date End Date Stephanie Ramos APRN - NP [address] [place] [address] PCP - General Nurse Practitioner 06/13/23 documented as of this encounter
[2024-08-29 17:13] LABS: Anion Gap 15.7 mEq/L (5-15); Blood Urea Nitrogen 28 mg/dl (7-17); Calcium 9.6 mg/dl (8.4-10.2); Carbon Dioxide 31 mmol/L (22.0-30.0); Chloride 96 mmol/L (98-107); Creatinine,Serum 0.90 mg/dl (0.52-1.04); Estimated Glomerular Filt Rate 64 ml/min (>60); GFR (African American) 77 ML/MIN (>60); Glucose 88 mg/dl (74-100); Potassium 4.7 mmoL/L (3.5-5.1); Sodium 138 mmol/L (136-145)
== END 2024-08-29 23:59 | disposition home or self-care (01) ==
LOC: LAB 14:59
PROVIDERS: PCP Nurse Practitioner; Visit Provider Nurse Practitioner Family
DX: I25.10 Atherosclerotic heart disease of native coronary artery without angina pectoris (principal)
CPT/HCPCS: 36415; 80048

== ENCOUNTER 2024-10-02 12:35 | Outpatient (CLI) | payer MEDICARE, MEDICAID, SELFPAY ==
--- NOTE | 2024-10-02 12:36 | MM_ITS ---
PROCEDURE INFORMATION: Exam: Bilateral Screening 3D Mammography Exam date and time: 10/02/2024 1:06 PM Age: 58 years old Clinical indication: Screening examination TECHNIQUE: Imaging protocol: Bilateral Screening tomosynthesis and 2D mammography including computer-aided detection (CAD) when performed. COMPARISON: [facility] DIGITAL SCREEN BILATERAL 11/09/2019 2:45 PM FINDINGS: MAMMOGRAPHY: Breast composition: There are scattered areas of fibroglandular density. Mass: None. Architectural distortion: None. Calcifications: No suspicious calcifications. Asymmetric density: None. Skin thickening: None. Axillary adenopathy: None. IMPRESSION: No mammographic evidence of malignancy. Annual screening is recommended unless otherwise clinically indicated. ASSESSMENT: BI-RADS Category 1: Negative.
== END 2024-10-02 23:59 | disposition home or self-care (01) ==
LOC: RAD 12:35
PROVIDERS: PCP Nurse Practitioner; Visit Provider Nurse Practitioner
DX: Z12.31 Encounter for screening mammogram for malignant neoplasm of breast (principal); R92.323 Mammographic fibroglandular density, bilateral breasts
CPT/HCPCS: 77063; 77067

== ENCOUNTER 2024-10-09 13:15 | Outpatient (CLI) | payer MEDICARE, MEDICAID, SELFPAY ==
--- OUTSIDE RECORDS SUMMARY | 2024-10-09 13:19 | XMS_ITS | Clinical Summary ---
Author Organization [facility] Address [address], [address] [place] [address] Care Team Providers Care Hand Surgeon Name Role Phone Stephanie Ramos APRN - [...] place to sleep or slept in a jail (including now)? No 06/13/2023 Food Insecurity Answer [...] (ABNORMAL) Lipid Panel (07/19/2023 9:35 AM EDT) [facility] Signature Cholesterol, Total 134 0 - 200 mg/dL 07/19/2023 11:41 AM EDT [facility] Triglycerides 111 0 - 249 mg/dL 07/19/19 24 11:41 AM EDT [facility] HDL 39(L) 40 - 60 mg/dL 07/19/2023 11:41 AM EDT [facility] Comment: An HDL cholesterol less than 40 mg/dL is low and constitutes a coronary heart disease risk factor. An HDL cholesterol greater than 60 mg/dL is a negative risk factor for coronary heart disease. LDL Cholesterol 73 <100 mg/dL 11:41 AM EDT [facility] VLDL Cholesterol Calculated 22 Not Established mg/dL 07/19/2023 11:41 AM EDT [facility] Blood BLOOD SPECIMEN / Unknown 07/19/2023 9:35 AM EDT 07/19/2023 11:37 AM EDT us Stephanie Ramos ASSISTED LIVING EXECUTIVE DIRECTOR - TURN DOWN WORKER CHEMISTRY ORDERABLES Fin al Result Performing Organization Address City/[facility]/ZIP Co de Phone Number [facility] [address] [phone] * Hemoglobin A1C (12/23/2022 3:25 PM EDT) Hemoglobin A1C 5.5 See comment % 12/24/2022 11:01 AM EDT [facility] Comment: Comment: Diagnosis of Diabetes: > or = 6.5% Increased risk of diabetes (Prediabetes): 5.7-6.4% Glycemic Control: Non Adults: <7.0% : <6.0% Blood BLOOD SPECIMEN / Unknown 12/23/2022 3:25 PM EDT 12/24/2022 11:54 AM EDT us Georgie Gipson ASSISTED LIVING EXECUTIVE DIRECTOR - MILL OPERATOR HEAD CHEMISTRY ORDERABLES Fin al Result [facility] [address] [phone] * HM MAMMOGRAPHY (07/13/2022) Anatomical Region Laterality Modality Other Historical Provider HEALTH MAINTENANCE Final Result from Last 3 Months or Most Recently Relevant to Health Maintenance Insurance BCBS MEDICARE on file Care Teams Hand Surgeon Relationship Specialty Start Date End Date Stephanie Ramos APRN - NP [address] [place] [address] PCP - General Nurse Practitioner 06/13/23
--- OUTSIDE RECORDS SUMMARY | 2024-10-09 13:19 | XMS_ITS | Encounter Summary ---
Author Organization [facility] Address [address], [address] [place] [address] Care Team Providers Care Liner Man Name Role Phone Stephanie Ramos APRN - WREATH AND GARLAND MAKER Primary Care Provider + Encounter Details Date Type Department Care Team (Late st Contact Info) Description 12/24/2022 Orders Only [address] [address] Provider, MD Chantell Social History [...] place to sleep or slept in a [facility] (including now)? No 12/23/2022 Food Insecurity Answer [...] on filedocumented in this encounter Care Teams Liner Man Relationship Specialty Start Date End Date Stephanie Ramos APRN - NP [address] [place] [address] PCP - General Nurse Practitioner 06/13/23 documented as of this encounter
[2024-10-09 13:53] LABS: Hematocrit 41.6 % (37.0-47.0); Hemoglobin 13.9 g/dL (12.2-16.2); Immature Granulocytes % 0.4 %; Mean Corpuscular HGB Conc 33.4 g/dL (31.8-35.4); Mean Corpuscular Hemoglobin 30.9 pg (27.0-31.2); Mean Corpuscular Volume 92.4 fl (81-99); Nucleated Red Blood Cells % 0 %; Platelet Count 151 K/mm3 (142-424); Red Blood Count 4.50 M/mm3 (4.20-5.40); Red Cell Distribution Width-SD 40.4 fL; White Blood Count 8.3 K/mm3 (4.8-10.8)
[2024-10-09 14:31] LABS: Albumin Level 4.4 g/dl (3.5-5.0); Chloride 106 mmol/L (98-107); Potassium 3.9 mmoL/L (3.5-5.1); Sodium 141 mmol/L (136-145)
[2024-10-09 14:33] LABS: Bilirubin,Unconjugated 0.2 mg/dL (0.0-1.1); Blood Urea Nitrogen 26 mg/dl (7-17); Creatinine,Serum 0.90 mg/dl (0.52-1.04); Estimated Glomerular Filt Rate 64 ml/min (>60); GFR (African American) 77 ML/MIN (>60)
[2024-10-09 14:34] LABS: Alanine Aminotransferase 23 U/L (12-78); Alkaline Phosphatase 103 U/L (38-126); Anion Gap 11.9 mEq/L (5-15); Aspartate Amino Transferase 25 U/L (14-36); Bilirubin,Direct 0.3 mg/dl (0.0-0.4); Bilirubin,Indirect 0.2 mg/dL (0.0-0.9); Bilirubin,Total 0.5 mg/dl (0.2-1.3); Calcium 9.5 mg/dl (8.4-10.2); Carbon Dioxide 27 mmol/L (22.0-30.0); Cholesterol 144 mg/dl (140-200); Glucose 109 mg/dl (74-100); HDL Cholesterol 39 mg/dl (40-60); Magnesium 1.8 mg/dl (1.6-2.3); Total Protein,Serum 6.7 g/dl (6.3-8.2); Triglycerides 129 mg/dl (30-150)
[2024-10-09 14:50] LABS: Free T4 (Free Thyroxine) 1.03 ng/dl (0.78-2.19)
[2024-10-09 15:03] LABS: Thyroid Stimulating Hormone 0.93 uIU/mL (0.465-4.68)
== END 2024-10-09 23:59 | disposition home or self-care (01) ==
LOC: LAB 13:15
PROVIDERS: PCP Nurse Practitioner; Visit Provider Nurse Practitioner Family
DX: I25.10 Atherosclerotic heart disease of native coronary artery without angina pectoris (principal); I10 Essential (primary) hypertension
CPT/HCPCS: 36415; 80048; 80061; 80076; 83735; 84439; 84443; 85025

== ENCOUNTER 2024-10-18 14:02 | Outpatient (CLI) | payer MEDICARE, MEDICAID, SELFPAY ==
--- OUTSIDE RECORDS SUMMARY | 2024-10-18 14:07 | XMS_ITS | Encounter Summary ---
Author Organization [facility] Address [address], [address] [place] [address] Care Team Providers Care Burr Bench Hand Name Role Phone Stephanie Ramos APRN - SURG PHYSICIAN ASST Primary Care Provider + Encounter Details Date Type Department Care Team (Late st Contact Info) Description 12/24/2022 Orders Only [address] [address] Provider, MD Chantell Social History [...] place to sleep or slept in a half-way (including now)? No 12/23/2022 Food Insecurity Answer [...] on filedocumented in this encounter Care Teams Burr Bench Hand Relationship Specialty Start Date End Date Stephanie Ramos APRN - NP [address] [place] [address] PCP - General Nurse Practitioner 06/13/23 documented as of this encounter
--- OUTSIDE RECORDS SUMMARY | 2024-10-18 14:07 | XMS_ITS | Clinical Summary ---
Author Organization [facility] Address [address], [address] [place] [address] Care Team Providers Care Infection Control Preventionist Name Role Phone Stephanie Ramos APRN - [...] place to sleep or slept in a [facility] (including now)? No 06/13/2023 Food Insecurity Answer [...] (ABNORMAL) Lipid Panel (07/19/2023 9:35 AM EDT) [facility] Signature Cholesterol, Total 134 0 - 200 mg/dL 07/19/2023 11:41 AM EDT [facility] Triglycerides 111 0 - 249 mg/dL 07/19/19 24 11:41 AM EDT [facility] HDL 39(L) 40 - 60 mg/dL 07/19/2023 11:41 AM EDT [facility] Comment: An HDL cholesterol less than 40 mg/dL is low and constitutes a coronary heart disease risk factor. An HDL cholesterol greater than 60 mg/dL is a negative risk factor for coronary heart disease. LDL Cholesterol 73 <100 mg/dL 11:41 AM EDT [facility] VLDL Cholesterol Calculated 22 Not Established mg/dL 07/19/2023 11:41 AM EDT [facility] Blood BLOOD SPECIMEN / Unknown 07/19/2023 9:35 AM EDT 07/19/2023 11:37 AM EDT us Stephanie Ramos LICENSED EMBALMER SUPERVISOR - CUSTOMER DATA TECHNICIAN CHEMISTRY ORDERABLES Fin al Result Performing Organization Address City/[facility]/ZIP Co de Phone Number [facility] [address] [phone] * Hemoglobin A1C (12/23/2022 3:25 PM EDT) Hemoglobin A1C 5.5 See comment % 12/24/2022 11:01 AM EDT [facility] Comment: Comment: Diagnosis of Diabetes: > or = 6.5% Increased risk of diabetes (Prediabetes): 5.7-6.4% Glycemic Control: Non Adults: <7.0% : <6.0% Blood BLOOD SPECIMEN / Unknown 12/23/2022 3:25 PM EDT 12/24/2022 11:54 AM EDT us Georgie Gipson LICENSED EMBALMER SUPERVISOR - GENERAL CLAIMS AGENT CHEMISTRY ORDERABLES Fin al Result [facility] [address] [phone] * HM MAMMOGRAPHY (07/13/2022) Anatomical Region Laterality Modality Other Historical Provider HEALTH MAINTENANCE Final Result from Last 3 Months or Most Recently Relevant to Health Maintenance Insurance BCBS MEDICARE on file Care Teams Infection Control Preventionist Relationship Specialty Start Date End Date Stephanie Ramos APRN - NP [address] [place] [address] PCP - General Nurse Practitioner 06/13/23
--- NOTE | 2024-10-18 14:30 | CT_ITS ---
FINAL REPORT TECHNIQUE: Thin section axial images were obtained through the lungs using a low-dose technique per lung cancer screening protocol. Reconstruction images were obtained using the axial data. Exam was performed using dose reduction technique. CLINICAL HISTORY: lung cancer screening 1 ppd x 43 yrs COMPARISON: CTA chest dated 10/21/2023 FINDINGS: CTDLvol: 2.90 DLP: 110.72 Current smoker 43 pack year history Lungs: No acute pulmonary abnormality. There is a 2 mm subpleural nodule in the left upper lobe on series 4 image 36. A 3 mm left lower lobe nodule is seen on image 42. There is evidence of prior granulomatous disease. There is a subpleural right upper lobe 4 mm nodule seen on image 19. This is unchanged from the prior exam. Lymph nodes: A right paratracheal lymph node is enlarged at 19 mm which has increased from the prior exam. This is nonspecific. There is no other lymphadenopathy. Mediastinum: Heart size is normal. Pleura/pericardium: No pleural or pericardial effusion. Other: No acute abnormality in the upper abdomen. IMPRESSION: Several, 4 mm or less pulmonary nodules. Lung RADS: 2 Recommendation: 12-month follow-up LDCT. Reviewed, Interpreted and Dictated by Ashely Hidalgo MD Transcribed by Meche Layne Authenticated and [facility]
== END 2024-10-18 23:59 | disposition home or self-care (01) ==
LOC: RAD 14:02
PROVIDERS: PCP Nurse Practitioner; Visit Provider Internal Medicine Pulmonary Disease
DX: Z12.2 Encounter for screening for malignant neoplasm of respiratory organs (principal); F17.210 Nicotine dependence, cigarettes, uncomplicated; R91.8 Other nonspecific abnormal finding of lung field
CPT/HCPCS: 71271

== ENCOUNTER 2024-11-07 23:45 | Observation (INO) | payer MEDICARE, MEDICAID, SELFPAY ==
[2024-11-08] VITALS (7 sets, daily range): BP systolic 95–130; BP diastolic 51–67; PULSE 59–79; RESP 16–20; TEMP 36.6–37.4; O2SAT 93–98; BMI 40.7; BMI 42.0
--- NOTE | 2024-11-08 00:24 | HMH.EDGENADL ---
Discharge Plan Disposition Patient Disposition: Admitted Prescriptions Prescriptions: No Action aspirin [Adult Low Dose Aspirin] 81 mg tablet,delayed release (DR/EC) 81 mg PO DAILY Qty: 30 5RF montelukast 10 mg tablet 10 mg PO DAILY Patient Comments: TAKE 1 TABLET BY MOUTH ONCE DAILY furosemide [Lasix] 40 mg tablet 80 mg PO DAILY 90 Days Qty: 180 3RF ondansetron 4 mg tablet,disintegrating 4 mg PO TID PRN (Reason: Nausea) rosuvastatin 10 mg tablet 10 mg PO DAILY losartan 50 mg tablet 50 mg PO DAILY albuterol sulfate 90 mcg/actuation aerosol powdr breath activated 2 inh inhalation Q4-6H PRN (Reason: SOB) cholecalciferol (vitamin D3) 50 mcg (2,000 unit) capsule 50 mcg PO DAILY fluticasone propionate [Flonase Allergy Relief] 50 mcg/actuation spray,suspension 1 spray intranasal DAILY 90 Days Qty: 16 2RF Rx Instructions: administer into each nostril metoprolol succinate [Toprol XL] 25 mg tablet extended release 24 hr 25 mg PO DAILY Qty: 30 5RF omeprazole 40 mg capsule,delayed release(DR/EC) 40 mg PO DAILY Qty: 90 3RF hydrocodone-acetaminophen 7.5-325 mg tablet 1 tab PO NEEDED PRN (Reason: Pain) Referrals Follow up/Referrals: Annetta Gupta APRN [Primary Care Provider, Medical] - See instructions Clinical Impressions Clinical Impression: Acute cecitis Instructions Patient Instructions: DI for Acute Abdominal Pain Print Language Print Language: [place] Discharge ED Provider: Alex Quiroz Adult HPI General Chief complaint: Abdominal Pain Stated complaint: Sharp lower R abd pain Time Seen by Provider: 11/08/24 00:24 Mode of Arrival: Ambulatory Source of Information: Patient Description of Symptoms (Recalled from ER Triage Doc. by RN): Sudden onset RLQ pain and fever today Denies Nausea nor vomiting. Associated headache History of Present Illness HPI narrative: 59-year-old female with history of obese, hypertension hyperlipidemia apnea COPD and interstitial lung disease presents for right lower quadrant pain. She reports it is severe, started this morning and has been worsening. She denies significant nausea or vomiting. She reports a headache as well. She has been taking Tylenol and her home prescribed oxycodone without improvement. She reports that she felt warm all day today and thinks that she had a fever but she did not have a thermometer at home. Related Data Home Medications ?Medication ?Instructions ?Recorded ?Confirmed albuterol sulfate 90 mcg/actuation 2 inh inhalation Q4-6H PRN SOB 11/16/23 10/01/24 breath activated powder inhaler cholecalciferol (vitamin D3) 50 50 mcg PO DAILY 11/16/23 10/01/24 mcg (2,000 unit) capsule losartan 50 mg tablet 50 mg PO DAILY 11/16/23 10/01/24 ondansetron 4 mg disintegrating 4 mg PO TID PRN Nausea 11/16/23 10/01/24 tablet rosuvastatin 10 mg tablet 10 mg PO DAILY 11/16/23 10/01/24 hydrocodone 7.5 mg-acetaminophen 1 tab PO NEEDED PRN Pain 06/25/24 10/01/24 325 mg tablet montelukast 10 mg tablet 10 mg PO DAILY 08/08/24 10/01/24 Previous Rx's ?Medication ?Instructions ?Recorded aspirin 81 mg tablet,delayed 81 mg PO DAILY #30 tabs 11/24/23 release (Adult Low Dose Aspirin) fluticasone propionate 50 1 spray intranasal DAILY 90 days 05/21/24 mcg/actuation nasal #16 grams spray,suspension (Flonase Allergy Relief) metoprolol succinate 25 mg 25 mg PO DAILY #30 tabs 06/04/24 tablet,extended release 24 hr (Toprol XL) omeprazole 40 mg capsule,delayed 40 mg PO DAILY #90 caps 08/27/24 release furosemide 40 mg tablet (Lasix) 80 mg (2 x 40 mg) PO DAILY 90 days 10/01/24 #180 tabs Allergies Allergy/AdvReac Type Severity Reaction Status Date / Time No Known Allergies Allergy Verified 10/01/24 10:53 [facility] Disclaimer: The information contained in this section may have been updated after the patient was seen, as this information can be updated by other users. Medical History (Updated 11/08/24 @ 02:12 by Alex Quiroz MD) Edema GARCÍA (obstructive sleep apnea) Allergic rhinitis Coronary artery disease Family history of coronary artery disease Hyperlipidemia Hypertension SOB (shortness of breath) on exertion Chest pain Tobacco abuse counseling Tobacco abuse Snoring Witnessed episode of apnea Daytime somnolence Family history of asthma Smoking greater than 30 pack years Chest pain, atypical ILD (interstitial lung disease) Surgical History History of colonoscopy History of partial knee replacement History of knee replacement, total History of kidney surgery History of hysterectomy Family History Other Asthma COPD (chronic obstructive pulmonary disease) Cancer Diabetes Heart attack Hypertension Lung cancer Stroke Social History Smoking Status: Current every day smoker alcohol intake: never substance use type: denies use current occupational status: unemployed and disabled Travel in the last 8 weeks?: None Have you lived/traveled outside US in past 30 days?: No Contact w/someone who lives/traveled outside US past 30 days?: No Exposure to someone with infectious disease in past 14 days?: No Do you have a fever (greater than 100.4 F or 38 C)?: No Have you tested positive for COVID-19?: No Exposed to someone with COVID-19 in past 14 days?: No Do you have a sore throat?: No Do you have a cough?: No Do you have any weakness?: No Do you have any diarrhea?: No Are you experiencing any unusual bleeding?: No Do you have any muscle aches/pain?: No Do you have any abdominal pain?: Yes Are you experiencing loss of taste or smell?: No Other Medical History Have you received the Pneumonia Vaccine: Yes ROS Obtained: Yes All systems reviewed & no additional complaints except as documented Physical Exam General General appearance: alert and in no apparent distress Head Head exam: atraumatic and normocephalic Eye Eye exam: Present normal appearance, PERRL and EOMI ENT ENT exam: Present normal oropharynx and normal external ear exam Neck Neck exam: Present normal inspection and full ROM Chest Chest inspection: Present normal inspection and symmetric chest wall rise; Absent tenderness Respiratory Respiratory exam: Present normal lung sounds bilaterally; Absent respiratory distress Cardiovascular Cardiovascular exam: Present regular rate and normal rhythm Abdominal Exam Abdominal exam: Present soft, tenderness (Focal severe right lower quadrant) and guarding; Absent distention Extremities Exam Extremities exam: Present normal inspection; Absent edema or joint swelling Back Exam Back exam: Present normal inspection; Absent tenderness Neurological Exam Neurological exam: Present alert and oriented X3; Absent motor sensory deficit Psychiatric Psychiatric exam: Present normal affect and normal mood Skin Skin exam: Present warm, dry and normal color Lymphatic Lymphatic Findings: no adenopathy Medical Decision Making Medical Records Medical records reviewed: Yes I reviewed the patient's medical records. Screening: Per USPSTF and CDC recommendations, given the prevalence of disease in our region, it is our hospital?s policy to screen for HIV and viral Hepatitis for all patients aged 18 and over and those with ongoing risk factors. Paul Inquiry Pt receiving controlled substance: No Paul was queried for this patient: No Vital Signs: 11/08/24 00:13 Temperature 98.6 F Temperature Source Oral Pulse Rate [Right Radial] 79 Respiratory Rate 20 Blood Pressure [Right Arm] 130/52 L Blood Pressure Mean [Right Arm] 78 Blood Pressure Source [Right Arm] Automatic Cuff Blood Pressure Position [Right Arm] Sitting 02 Sat by Pulse Oximetry 96 Oxygen Delivery Method Room Air Lab Data Lab results reviewed: Yes I reviewed the patient's lab results. Lab Results 11/08/24 00:35: WBC 13.9 H, RBC 4.37, Hgb 13.6, Hct 40.1, MCV 91.8, MCH 31.1, MCHC 33.9, RDW 12.3, Plt Count 175, MPV 10.5 H, Neut % (Auto) 67.0, Lymph % (Auto) 23.3, [place] % (Auto) 7.4, Eos % (Auto) 1.7, Baso % (Auto) 0.4, Neut # (Auto) 9.3 H, Lymph # (Auto) 3.2, [place] # (Auto) 1.0, Eos # (Auto) 0.2, Baso # (Auto) 0.1, PT 10.5, INR 0.94, Sodium 138, Potassium 3.7, Chloride 98, Carbon Dioxide 30, Anion Gap 13.7, BUN 19 H, Creatinine 1.10 H, Estimated Creat Clear 88, Estimated GFR 50 L, Est GFR ( Amer) 61, Glucose 111 H, Calcium 9.1, Total Bilirubin 0.5, AST 26, ALT 16, Alkaline Phosphatase 79, Total Protein 7.3, Albumin 4.5, Globulin 2.8, Albumin/Globulin Ratio 1.6, HIV Ag/Ab Combo Qual Negative 11/08/24 01:17: Urine Color Yellow, Urine Appearance Clear, Urine pH 5.5, Ur Specific [place] 1.020, Urine Protein Negative, Urine Glucose (UA) Negative, Urine Ketones Trace, Urine Blood Negative, Urine Nitrate Negative, Urine Bilirubin Negative, Urine Urobilinogen 0.2, Ur Leukocyte Esterase Negative, Urine RBC 3-5, Urine WBC 3-5, Ur Squamous Epith Cells 3-5, Urine Bacteria 1+, Urine Mucus 1+ 11/08/24 00:35 11/08/24 00:35 Orders (Tests/Meds): ED MEDICATIONS Generic Name Dose Route Start Last Admin Trade Name Ebony PRN Reason Stop Dose Admin Piperacillin Sod/Tazobactam 100 mls @ 200 mls/hr 11/08/24 02:15 Sod 4.5 gm/ Sodium Chloride IV 11/08/24 02:44 Q6H ONE Lactated Ringer's 1,000 mls @ 999 mls/hr 11/08/24 02:15 Lactated Ringer's 1000 Ml Bag IV 11/08/24 03:15 .Q1H1M LOKI Sodium Chloride 10 ml 11/08/24 01:06 11/08/24 01:06 Sodium Chloride 0.9% 10ml Syr (Rad Only) IV 12/08/24 01:05 10 ml NEEDED PRN Administration Maintain IV Site Discontinued Medications Generic Name Dose Route Start Last Admin Trade Name Fredouglas PRN Reason Stop Dose Admin Iopamidol 75 ml 11/08/24 01:06 11/08/24 01:06 Iopamidol-370 (76%);100ml Bottle IV 11/08/24 01:07 75 ml ONCE ONE Administration Ketorolac Tromethamine 15 mg 11/08/24 00:29 11/08/24 00:37 Ketorolac 30mg/Ml Vial IV 11/08/24 00:30 15 mg ONCE ONE Administration Morphine Sulfate 4 mg 11/08/24 00:29 11/08/24 00:37 Morphine 4mg/Ml Syringe IV 11/08/24 00:30 4 mg ONCE ONE Administration Ondansetron HCl 4 mg 11/08/24 00:29 11/08/24 00:37 Ondansetron 4mg/2ml Vial IV 11/08/24 00:30 4 mg ONCE ONE Administration ORDERS Category Date Time Status CT abdomen pelvis w con Stat Cat Scan 11/08/24 00:29 Completed CBC w/Auto Diff [Complete Blood Count Auto Diff] Stat Lab 11/08/24 00:35 Completed CMP [Comprehensive Metabolic Panel] Stat Lab 11/08/24 00:35 Completed HIV Combo Routine Lab 11/08/24 00:35 Completed Hepatitis C Ab Qual. W/ RFX Routine Lab 11/08/24 00:35 Received INR [Prothrombin Time INR] Stat Lab 11/08/24 00:35 Completed UA [Urinalysis and Microscopic] Stat Lab 11/08/24 01:17 Completed Blood Culture Stat Micro 11/08/24 01:57 Ordered Tissue Perfus/Sepsis Re-Eval Sepsis Re-Evaluation Performed: Yes Date Performed: 11/08/24 Time Performed: 02:12 Medical Decision Narrative: 59-year-old female with history of ILD, hypertension obesity sleep apnea presents for 1 day of right lower quadrant pain and subjective fever. History was obtained via interactive discussion with patient, family, chart review. On arrival, patient is [afebrile, hemodynamically stable, satting appropriately, alert, oriented x4, GCS 15], moving all extremities spontaneously. Full physical exam performed and significant for significant right lower quadrant tenderness to palpation with guarding. Differential includes but is not limited to appendicitis, colitis, UTI/obstructing stone. Patient was given morphine, Toradol, Zofran for symptomatic management and correction of underlying abnormalities. Workup initiated including basic labs, CT abdomen pelvis with IV contrast. On re-evaluation, patient reports some improvement of pain but remains tender in the right lower quadrant Laboratory workup independently interpreted by me and significant for leukocytosis with white count of 13.9.. Imaging independently interpreted by me and significant for significant inflammation within the cecum, diverticuli throughout the colon. I personally cannot visualize the appendix, the radiology read the appendix is normal.. See radiology read for full review of final results. Given patient history, exam and workup, patient's presentation most likely represents diverticulitis/cecitis. Given her age, reported fever at home, white count of 14, and the severity of her pain and her tenderness on exam, I think patient would benefit from admission for IV antibiotics and monitoring. Initiated her on 1 L LR. I do not think she requires a full sepsis bolus as this may result in volume overload. I also initiated her on Zosyn for empiric antibiotic coverage. Interactive discussion was had with the hospitalist on-call for admission.. Procedures Risk/Benefits of Procedure(s) Were Explained: Yes Critical Care Critical Care Time Critical Care Time: No
--- OUTSIDE RECORDS SUMMARY | 2024-11-08 00:28 | XMS_ITS | Clinical Summary ---
Author Organization [facility] Address [address], [address] [place] [address] Care Team Providers Care Director Digital Catalogue Name Role Phone Stephanie Ramos APRN - [...] place to sleep or slept in a custodial (including now)? No 06/13/2023 Food Insecurity Answer [...] Shingles vaccine (2 of 2) 12/06/2022 10/11/2022 Respiratory Syncytial Virus (RSV) or age 60 yrs+ (1 - Risk 60-74 years 1-dose series) 2023 Annual Wellness Visit (Medicare Advantage) 02/22/2024 06/13/2023 Depression Monitoring 06/12/2024 06/13/2023 Breast cancer screen 07/13/2024 07/13/2022, 11/09/2019 Lipids 07/18/2024 07/19/2023, 12/23/2022 Flu vaccine (#1) 09/21/2024 12/23/2022, 04/02/2021 COVID-19 Vaccine (1 - 2023-2 5 season) 2024 DTaP/Tdap/Td vaccine (3 - Td or Tdap) [...] (ABNORMAL) Lipid Panel (07/19/2023 9:35 AM EDT) Cholesterol, Total 134 0 - 200 mg/dL 07/19/2023 11:41 AM EDT [facility] Triglycerides 111 0 - 249 mg/dL 07/19/19 24 11:41 AM EDT [facility] HDL 39(L) 40 - 60 mg/dL 07/19/2023 11:41 AM EDT [facility] Comment: An HDL cholesterol less than 40 mg/dL is low and constitutes a coronary heart disease risk factor. An HDL cholesterol greater than 60 mg/dL is a negative risk factor for coronary heart disease. LDL Cholesterol 73 <100 mg/dL 11:41 AM EDT [facility] VLDL Cholesterol Calculated 22 Not Established mg/dL 07/19/2023 11:41 AM EDT [facility] Blood BLOOD SPECIMEN / Unknown 07/19/2023 9:35 AM EDT 07/19/2023 11:37 AM EDT us Stephanie Ramos DRAFTING LAYOUT MAN - HAND VIOLIN MAKER CHEMISTRY ORDERABLES Fin al Result Performing Organization Address City/[facility]/ZIP Co de Phone Number [facility] [address] [phone] * Hemoglobin A1C (12/23/2022 3:25 PM EDT) Hemoglobin A1C 5.5 See comment % 12/24/2022 11:01 AM EDT [facility] Comment: Comment: Diagnosis of Diabetes: > or = 6.5% Increased risk of diabetes (Prediabetes): 5.7-6.4% Glycemic Control: Non Adults: <7.0% : <6.0% Blood BLOOD SPECIMEN / Unknown 12/23/2022 3:25 PM EDT 12/24/2022 11:54 AM EDT us Georgie Gipson DRAFTING LAYOUT MAN - CONSTRUCTION MATERIALS TESTER CHEMISTRY ORDERABLES Fin al Result [facility] [address] [phone] * HM MAMMOGRAPHY (07/13/2022) Anatomical Region Laterality Modality Other Historical Provider HEALTH MAINTENANCE Final Result from Last 3 Months or Most Recently Relevant to Health Maintenance Insurance BCBS MEDICARE on file Care Teams Director Digital Catalogue Relationship Specialty Start Date End Date Stephanie Ramos APRN - NP [address] [place] [address] PCP - General Nurse Practitioner 06/13/23
--- OUTSIDE RECORDS SUMMARY | 2024-11-08 00:28 | XMS_ITS | Encounter Summary ---
Author Organization [facility] Address [address], [address] [place] [address] Care Team Providers Care Commercial Intelligence Manager Name Role Phone Stephanie Ramos APRN - COMBINE OPERATOR Primary Care Provider + Encounter Details Date Type Department Care Team (Late st Contact Info) Description 12/24/2022 Orders Only [address] [address] Provider, MD [place] Social History [...] place to sleep or slept in a fci (including now)? No 12/23/2022 Food Insecurity Answer [...] on filedocumented in this encounter Care Teams Commercial Intelligence Manager Relationship Specialty Start Date End Date Stephanie Ramos APRN - NP [address] [place] [address] PCP - General Nurse Practitioner 06/13/23 documented as of this encounter
--- NOTE | 2024-11-08 00:29 | CT_ITS ---
PROCEDURE INFORMATION: Exam: CT Abdomen And Pelvis With Contrast Exam date and time: 11/08/2024 1:01 AM Age: 59 years old Clinical indication: Abdominal pain; Additional info: Rlq pain TECHNIQUE: Imaging protocol: Computed tomography of the abdomen and pelvis with contrast. Radiation optimization: All CT scans at this facility use at least one of these dose optimization techniques: automated exposure control; mA and/or kV adjustment per patient size (includes targeted exams where dose is matched to clinical indication); or iterative reconstruction. Contrast material: ISOVUE; Contrast volume: 75 ml; Contrast route: IV; COMPARISON: CT LUNG SCREENING 10/18/2024 2:38 PM FINDINGS: Liver: Normal. No mass. Gallbladder and biliary ducts: Small gallstones. Pancreas: Normal. No ductal dilation. Spleen: Small granulomatous calcifications throughout the spleen. Adrenal glands: Normal. No mass. Kidneys and ureters: Small left renal calculi. No hydronephrosis or hydroureter. Stomach and bowel: Mild wall thickening and inflammatory changes of the base of the cecum. Appendix: Normal appendix. Intraperitoneal space: Unremarkable. No free air. No significant fluid collection. Vasculature: Unremarkable. No abdominal aortic aneurysm. Lymph nodes: Unremarkable. No enlarged lymph nodes. Urinary bladder: Unremarkable as visualized. Reproductive: Hysterectomy. Bones/joints: Unremarkable. No acute fracture. Soft tissues: Unremarkable. IMPRESSION: 1. Mild wall thickening and inflammatory changes of the base of the cecum. Suspicious for cecitis. 2. Cholelithiasis. 3. Left nephrolithiasis. 4. Evidence of prior granulomatous exposure.
[2024-11-08] MEDS: ONDANSETRON 4MG/2ML VIAL 4 MG IV (00:37)
[2024-11-08] MEDS: MORPHINE 4MG/ML SYRINGE 4 MG IV (00:37)
[2024-11-08] MEDS: KETOROLAC 30MG/ML VIAL 15 MG IV (00:37)
[2024-11-08 00:41] LABS: Hematocrit 40.1 % (37.0-47.0); Hemoglobin 13.6 g/dL (12.2-16.2); Immature Granulocytes % 0.2 %; Mean Corpuscular HGB Conc 33.9 g/dL (31.8-35.4); Mean Corpuscular Hemoglobin 31.1 pg (27.0-31.2); Mean Corpuscular Volume 91.8 fl (81-99); Nucleated Red Blood Cells % 0 %; Platelet Count 175 K/mm3 (142-424); Red Blood Count 4.37 M/mm3 (4.20-5.40); Red Cell Distribution Width-SD 41.3 fL; White Blood Count 13.9 K/mm3 (4.8-10.8)
[2024-11-08 00:46] LABS: Albumin Level 4.5 g/dl (3.5-5.0); Chloride 98 mmol/L (98-107); Potassium 3.7 mmoL/L (3.5-5.1); Sodium 138 mmol/L (136-145)
[2024-11-08 00:49] LABS: Alanine Aminotransferase 16 U/L (12-78); Albumin/Globulin Ratio 1.6 (1.1-1.8); Alkaline Phosphatase 79 U/L (38-126); Anion Gap 13.7 mEq/L (5-15); Aspartate Amino Transferase 26 U/L (14-36); Bilirubin,Total 0.5 mg/dl (0.2-1.3); Blood Urea Nitrogen 19 mg/dl (7-17); Carbon Dioxide 30 mmol/L (22.0-30.0); Creatinine Clearance Estimated 88 mL/min (50-200); Creatinine,Serum 1.10 mg/dl (0.52-1.04); Estimated Glomerular Filt Rate 50 ml/min (>60); GFR (African American) 61 ML/MIN (>60); Globulin 2.8 g/dL (1.3-3.2); INR 0.94 (0.9-1.1); Prothrombin Time 10.5 seconds (10.1-12.5); Total Protein,Serum 7.3 g/dl (6.3-8.2)
[2024-11-08 00:50] LABS: Calcium 9.1 mg/dl (8.4-10.2); Glucose 111 mg/dl (74-100)
[2024-11-08] MEDS: SODIUM CHLORIDE 0.9% 10ML SYR (RAD ONLY) 10 ML IV (01:06)
[2024-11-08] MEDS: IOPAMIDOL-370 (76%);100ML BOTTLE 75 ML IV (01:06)
--- NOTE | 2024-11-08 01:14 | PC.NURSE ---
PT unable to give UA at this time.
[2024-11-08 01:26] LABS: Microscopic, Urine URINE MICROSCOPIC (MICROSCOPIC)
[2024-11-08 01:29] LABS: Color,Urine YELLOW (Yellow); Glucose,Urine (UA) Negative (Negative); Ketones,Urine TRACE (Negative); Leukocyte Esterase,Urine Negative (Negative); PH,Urine 5.5 (5.0-8.5); Protein,Urine Negative (Negative); Specific Gravity, Urine 1.020 (1.005-1.030); Urobilinogen,Urine 0.2 EU/dl (0.2)
[2024-11-08 01:41] LABS: Bilirubin,Urine Negative (Negative)
[2024-11-08 01:47] LABS: Bacteria,Urine 1+ /lpf; Mucus,Urine 1+ /lpf
[2024-11-08 02:10] LABS: Hepatitis C Ab Qual. W/ RFX NEGATIVE (Negative)
[2024-11-08] MEDS: PIPERACILLIN/TAZO 4.5 GM in 0.9 % SODIUM CHLORIDE 100 ML IV (02:20)
[2024-11-08] MEDS: LACTATED RINGERS 1000ML 1,000 ML 999 ML IV (02:21)
--- NOTE | 2024-11-08 02:23 | EXP.HP ---
History of Present Illness *Admission Date: 11/08/24 *Reason for visit:: Abdominal Pain *History of present illness: Patient is a 59-year-old female with past medical history of obstructive sleep apnea, COPD, hypertension and hyperlipidemia, tobacco use who presents to the hospital due to abdominal pain. According to the patient her abdominal pain is localized in right lower quadrant abdominal pain, severe intensity, overall, deep and persistent for past 1 day. Patient mentions she has subjective fevers otherwise denied diarrhea constipation dysuria. On further evaluation patient had CT abdomen pelvis which did show possible inflammation in cecum concerning for colitis. [facility] Disclaimer: The information contained in this section may have been updated after the patient was seen, as this information can be updated by other users. Medical History (Updated 11/08/24 @ 03:44 by Feliciano Tompkins MD) Edema GARCÍA (obstructive sleep apnea) Allergic rhinitis Coronary artery disease Family history of coronary artery disease Hyperlipidemia Hypertension SOB (shortness of breath) on exertion Chest pain Tobacco abuse counseling Tobacco abuse Snoring Witnessed episode of apnea Daytime somnolence Family history of asthma Smoking greater than 30 pack years Chest pain, atypical ILD (interstitial lung disease) Surgical History History of colonoscopy History of partial knee replacement History of knee replacement, total History of kidney surgery History of hysterectomy Family History Other Asthma COPD (chronic obstructive pulmonary disease) Cancer Diabetes Heart attack Hypertension Lung cancer Stroke Social History Smoking Status: Current every day smoker alcohol intake: never substance use type: denies use current occupational status: unemployed and disabled Travel in the last 8 weeks?: None Have you lived/traveled outside US in past 30 days?: No Contact w/someone who lives/traveled outside US past 30 days?: No Exposure to someone with infectious disease in past 14 days?: No Do you have a fever (greater than 100.4 F or 38 C)?: No Have you tested positive for COVID-19?: No Exposed to someone with COVID-19 in past 14 days?: No Do you have a sore throat?: No Do you have a cough?: No Do you have any weakness?: No Do you have any diarrhea?: No Are you experiencing any unusual bleeding?: No Do you have any muscle aches/pain?: No Do you have any abdominal pain?: Yes Are you experiencing loss of taste or smell?: No Other Medical History Have you received the Pneumonia Vaccine: Yes Review of Systems Review of Systems Review of systems:: pertinent systems reviewed and negative unless documented below Meds Home Medications and Allergies Home Medications ?Medication ?Instructions ?Recorded ?Confirmed ?Type albuterol sulfate 90 mcg/actuation 2 inh inhalation Q4-6H PRN SOB 11/16/23 11/08/24 History breath activated powder inhaler cholecalciferol (vitamin D3) 50 50 mcg PO DAILY 11/16/23 11/08/24 History mcg (2,000 unit) capsule losartan 50 mg tablet 50 mg PO DAILY 11/16/23 11/08/24 History ondansetron 4 mg disintegrating 4 mg PO TID PRN Nausea 11/16/23 11/08/24 History tablet rosuvastatin 10 mg tablet 10 mg PO DAILY 11/16/23 11/08/24 History aspirin 81 mg tablet,delayed 81 mg PO DAILY #30 tabs 11/24/23 11/08/24 Rx release (Adult Low Dose Aspirin) metoprolol succinate 25 mg 25 mg PO DAILY #30 tabs 06/04/24 11/08/24 Rx tablet,extended release 24 hr (Toprol XL) hydrocodone 7.5 mg-acetaminophen 1 tab PO NEEDED PRN Pain 06/25/24 11/08/24 History 325 mg tablet montelukast 10 mg tablet 10 mg PO DAILY 08/08/24 11/08/24 History omeprazole 40 mg capsule,delayed 40 mg PO DAILY #90 caps 08/27/24 11/08/24 Rx release furosemide 40 mg tablet (Lasix) 80 mg PO DAILY 11/08/24 11/08/24 History New Prescriptions to Start Prescriptions: Allergies Allergy/AdvReac Type Severity Reaction Status Date / Time No Known Allergies Allergy Verified 10/01/24 10:53 Exam Data for Last 24 hours Vital signs and Labs for Last 24 Hours: Temp Pulse Resp BP Pulse Ox O2 Del Method 98.6 F 79 20 130/52 L 96 Room Air 11/08/24 00:13 11/08/24 00:11/08/24 00:11/08/24 00:11/08/24 00:13 11/08/24 00:13 Laboratory Results - last 24 hr 11/08/24 00:35: WBC 13.9 H, RBC 4.37, Hgb 13.6, Hct 40.1, MCV 91.8, MCH 31.1, MCHC 33.9, RDW 12.3, Plt Count 175, MPV 10.5 H, Neut % (Auto) 67.0, Lymph % (Auto) 23.3, [place] % (Auto) 7.4, Eos % (Auto) 1.7, Baso % (Auto) 0.4, Neut # (Auto) 9.3 H, Lymph # (Auto) 3.2, [place] # (Auto) 1.0, Eos # (Auto) 0.2, Baso # (Auto) 0.1, PT 10.5, INR 0.94, Sodium 138, Potassium 3.7, Chloride 98, Carbon Dioxide 30, Anion Gap 13.7, BUN 19 H, Creatinine 1.10 H, Estimated Creat Clear 88, Estimated GFR 50 L, Est GFR ( Amer) 61, Glucose 111 H, Calcium 9.1, Total Bilirubin 0.5, AST 26, ALT 16, Alkaline Phosphatase 79, Total Protein 7.3, Albumin 4.5, Globulin 2.8, Albumin/Globulin Ratio 1.6, HCV Ab EZIO w/Rflx PCR Qn Negative, HIV Ag/Ab Combo Qual Negative 11/08/24 01:17: Urine Color Yellow, Urine Appearance Clear, Urine pH 5.5, Ur Specific Likely 1.020, Urine Protein Negative, Urine Glucose (UA) Negative, Urine Ketones Trace, Urine Blood Negative, Urine Nitrate Negative, Urine Bilirubin Negative, Urine Urobilinogen 0.2, Ur Leukocyte Esterase Negative, Urine RBC 3-5, Urine WBC 3-5, Ur Squamous Epith Cells 3-5, Urine Bacteria 1+, Urine Mucus 1+ I & O for Last 24 hours: Intake & Output 11/05/24 11/06/24 11/07/24 11/08/24 23:59 23:59 23:59 23:59 Weight 104.326 kg Constitutional Constitutional: no acute distress *Routine HEENT Exam Head: Present normocephalic Eye: Present EOMI and PERRL ENT: Present mucous membranes moist *Routine Neck Exam Neck: Present supple; Absent lymphadenopathy *Routine Respiratory Exam Respiratory: Present CTA bilaterally *Routine Cardiovascular Exam Cardiovascular: Present RRR *Routine Abdominal Exam Abdominal: Present soft; Absent tenderness Comments: RLQ abdominal tendernss *Routine Rectal Exam Rectal:: deferred *Routine Genitalia Exam Genitalia:: deferred *Routine Extremities Exam Extremities: Absent cyanosis, clubbing or edema *Routine Skin Exam Skin: Present warm; Absent rash *Routine Neurological Exam Neurological: Present alert and oriented X3 Assessment and Plan *Assessment and plan (1) Hypertension: Status: Acute Qualifiers: Hypertension type: primary hypertension Qualified Code(s): I10 - Essential (primary) hypertension Category: Medical Code(s): I10 - Essential (primary) hypertension (2) Hyperlipidemia: Status: Acute Qualifiers: Hyperlipidemia type: mixed hyperlipidemia Qualified Code(s): E78.2 - Mixed hyperlipidemia Category: Medical Code(s): E78.5 - Hyperlipidemia, unspecified (3) Acute colitis: Status: Acute Category: Medical Code(s): K52.9 - Noninfective gastroenteritis and colitis, unspecified Plan Patient is a 59-year-old female with past medical history of obstructive sleep apnea, COPD, hypertension and hyperlipidemia, tobacco use who presents to the hospital due to abdominal pain. According to the patient her abdominal pain is localized in right lower quadrant abdominal pain, severe intensity, overall, deep and persistent for past 1 day. Patient mentions she has subjective fevers otherwise denied diarrhea constipation dysuria. On further evaluation patient had CT abdomen pelvis which did show possible inflammation in cecum concerning for colitis. Assessment and plan Right lower quadrant abdominal pain suspect due to acute colitis Leukocytosis Start IV Zosyn IV fluids N.p.o. for now Advance diet as tolerated Chronic medical conditions COPD Hypertension Hyperlipidemia - Resume home albuterol, aspirin, metoprolol, statins DVT prophylaxis-subcutaneous heparin
--- NOTE | 2024-11-08 02:29 | PC.NURSE ---
Report called to RAMONITA Sierra
[2024-11-08] MEDS: 0.9 % SODIUM CHLORIDE 1000ML 1,000 ML 50 ML IV ×2 (02:53→20:37)
[2024-11-08] MEDS: MORPHINE 2MG/ML SYRINGE 2 MG IV (03:17)
[2024-11-08] MEDS: APAP/HYDROCODONE 325MG/7.5MG TAB 1 TAB PO ×3 (04:43→18:13)
[2024-11-08 06:19] LABS: Hematocrit 36.2 % (37.0-47.0); Immature Granulocytes % 0.4 %; Mean Corpuscular HGB Conc 33.7 g/dL (31.8-35.4); Mean Corpuscular Hemoglobin 31.3 pg (27.0-31.2); Mean Corpuscular Volume 92.8 fl (81-99); Nucleated Red Blood Cells % 0 %; Platelet Count 134 K/mm3 (142-424); Red Blood Count 3.90 M/mm3 (4.20-5.40); Red Cell Distribution Width-SD 42.3 fL; White Blood Count 11.3 K/mm3 (4.8-10.8)
[2024-11-08 06:27] LABS: Hemoglobin 12.1 g/dL (12.2-16.2)
[2024-11-08 06:32] LABS: Anion Gap 9.8 mEq/L (5-15); Blood Urea Nitrogen 20 mg/dl (7-17); Calcium 8.5 mg/dl (8.4-10.2); Carbon Dioxide 29 mmol/L (22.0-30.0); Chloride 99 mmol/L (98-107); Creatinine Clearance Estimated 39 mL/min (50-200); Creatinine,Serum 1.20 mg/dl (0.52-1.04); Estimated Glomerular Filt Rate 46 ml/min (>60); GFR (African American) 55 ML/MIN (>60); Glucose 108 mg/dl (74-100); Potassium 3.8 mmoL/L (3.5-5.1); Sodium 134 mmol/L (136-145)
--- NOTE | 2024-11-08 07:47 | HMH.PHAINT1 ---
Pharmacy Intervention Comments: HOME MEDICATION LIST VERIFIED USING LIST FROM HOME PHARMACY
[2024-11-08] MEDS: ASPIRIN EC 81MG TABLET 81 MG PO (08:52)
[2024-11-08] MEDS: HEPARIN SODIUM 5,000 UNIT/ML VIAL 5000 UNIT SUBCUT ×3 (08:52→19:49)
[2024-11-08] MEDS: PIPERACILLIN/TAZO 3.375 GM in 0.9 % SODIUM CHLORIDE 50 ML IV ×3 (08:52→19:48)
--- NOTE | 2024-11-08 12:26 | PC.NURSE ---
pt's brought home medications in. pt stated she took her home metoprolol 25mg, rosuvastatin 10mg, and omeprazole 40mg. pt made aware that she cannot take her medications from home and that they must be given through our pharmacy and re-ordered by the doctor. Medications taken and sent to pharmacy. pt's BP 124/56 HR 63. Hospitalist made aware.
[2024-11-08] MEDS: KETOROLAC 15MG/ML VIAL 15 MG IV ×2 (13:33→19:48)
[2024-11-08] MEDS: NICOTINE 21MG/24HR PATCH 21 MG TD (13:46)
--- NOTE | 2024-11-08 16:41 | PC.NURSE ---
Pt is A&Ox4. Vital signs stable tolerating room air. Pt has complained of right sided abdominal pain this shift. PRN pain medication given per APR. IV abx and fluids infusing. Pt tolerating full liquid diet. Pt has not had a bowel movement this shift for diarrhea panel. Pt resting comfortably supine in bed with no further needs voiced at this time. Call light within reach.
--- NOTE | 2024-11-08 19:57 | PC.NURSE ---
patient last bm 11/07 but constipated per report - requesting miralax - contacted [facility], miralax ordered and administered. active bowel sounds, tenderness to RLQ.
[2024-11-08] MEDS: POLYETHYLENE GLYCOL 3350 17 GM PACKET PO (20:10)
[2024-11-09] MEDS: PIPERACILLIN/TAZO 3.375 GM in 0.9 % SODIUM CHLORIDE 50 ML IV ×4 (01:40→20:30)
[2024-11-09 04:00] VITALS: BP 123/63; PULSE 69; RESP 16; TEMP 36.9; O2SAT 95; BMI 42.6
[2024-11-09 06:08] LABS: Hematocrit 34.1 % (37.0-47.0); Hemoglobin 11.3 g/dL (12.2-16.2); Immature Granulocytes % 0.3 %; Mean Corpuscular HGB Conc 33.1 g/dL (31.8-35.4); Mean Corpuscular Hemoglobin 30.7 pg (27.0-31.2); Mean Corpuscular Volume 92.7 fl (81-99); Nucleated Red Blood Cells % 0 %; Platelet Count 130 K/mm3 (142-424); Red Blood Count 3.68 M/mm3 (4.20-5.40); Red Cell Distribution Width-SD 40.8 fL; White Blood Count 7.8 K/mm3 (4.8-10.8)
[2024-11-09 07:55] VITALS: BP 115/64; PULSE 76; RESP 14; TEMP 36.9; O2SAT 95
[2024-11-09] MEDS: HEPARIN SODIUM 5,000 UNIT/ML VIAL 5000 UNIT SUBCUT ×3 (08:09→20:30)
[2024-11-09] MEDS: ASPIRIN EC 81MG TABLET 81 MG PO (08:09)
[2024-11-09] MEDS: APAP/HYDROCODONE 325MG/7.5MG TAB 1 TAB PO ×2 (08:20→16:57)
[2024-11-09 10:27] LABS: Albumin Level 3.5 g/dl (3.5-5.0); Chloride 102 mmol/L (98-107); Potassium 3.9 mmoL/L (3.5-5.1); Sodium 137 mmol/L (136-145)
[2024-11-09 10:29] LABS: Blood Urea Nitrogen 15 mg/dl (7-17); Creatinine Clearance Estimated 47 mL/min (50-200); Creatinine,Serum 0.90 mg/dl (0.52-1.04); Estimated Glomerular Filt Rate 64 ml/min (>60); GFR (African American) 77 ML/MIN (>60)
[2024-11-09 10:30] LABS: Alanine Aminotransferase 12 U/L (12-78); Albumin/Globulin Ratio 1.5 (1.1-1.8); Alkaline Phosphatase 72 U/L (38-126); Anion Gap 10.9 mEq/L (5-15); Aspartate Amino Transferase 21 U/L (14-36); Bilirubin,Total 0.7 mg/dl (0.2-1.3); Calcium 8.7 mg/dl (8.4-10.2); Carbon Dioxide 28 mmol/L (22.0-30.0); Globulin 2.4 g/dL (1.3-3.2); Glucose 101 mg/dl (74-100); Magnesium 1.8 mg/dl (1.6-2.3); Total Protein,Serum 5.9 g/dl (6.3-8.2)
--- NOTE | 2024-11-09 12:45 | EXP.SURG.CON ---
History of Present Illness *Admission Date: 11/08/24 *Reason for visit:: Right lower quadrant abdominal pain *History of present illness: Is a 59-year-old female seen in consultation from the primary service for evaluation regarding right lower quad abdominal pain. See HPI forwarded from admission H&P below. Currently she is having persistent pain in the mid abdomen and right lower quadrant. No fevers. Currently without nausea. Forwarded from admission H&P: Patient is a 59-year-old female with past medical history of obstructive sleep apnea, COPD, hypertension and hyperlipidemia, tobacco use who presents to the hospital due to abdominal pain. According to the patient her abdominal pain is localized in right lower quadrant abdominal pain, severe intensity, overall, deep and persistent for past 1 day. Patient mentions she has subjective fevers otherwise denied diarrhea constipation dysuria. On further evaluation patient had CT abdomen pelvis which did show possible inflammation in cecum concerning for colitis. [facility] Disclaimer: The information contained in this section may have been updated after the patient was seen, as this information can be updated by other users. Medical History (Updated 11/09/24 @ 12:49 by Burt Frederick MD) Edema GARCÍA (obstructive sleep apnea) Allergic rhinitis Coronary artery disease Family history of coronary artery disease Hyperlipidemia Hypertension SOB (shortness of breath) on exertion Chest pain Tobacco abuse counseling Tobacco abuse Snoring Witnessed episode of apnea Daytime somnolence Family history of asthma Smoking greater than 30 pack years Chest pain, atypical ILD (interstitial lung disease) Surgical History History of colonoscopy History of partial knee replacement History of knee replacement, total History of kidney surgery History of hysterectomy Family History Other Asthma COPD (chronic obstructive pulmonary disease) Cancer Diabetes Heart attack Hypertension Lung cancer Stroke Social History Smoking Status: Current every day smoker alcohol intake: never substance use type: denies use current occupational status: unemployed and disabled Travel in the last 8 weeks?: None Have you lived/traveled outside US in past 30 days?: No Contact w/someone who lives/traveled outside US past 30 days?: No Exposure to someone with infectious disease in past 14 days?: No Do you have a fever (greater than 100.4 F or 38 C)?: No Have you tested positive for COVID-19?: No Exposed to someone with COVID-19 in past 14 days?: No Do you have a sore throat?: No Do you have a cough?: No Do you have any weakness?: No Do you have any diarrhea?: No Are you experiencing any unusual bleeding?: No Do you have any muscle aches/pain?: No Do you have any abdominal pain?: Yes Are you experiencing loss of taste or smell?: No Meds Home Medications and Allergies Home Medications ?Medication ?Instructions ?Recorded ?Confirmed ?Type albuterol sulfate 90 mcg/actuation 2 inh inhalation Q4-6H PRN SOB 11/16/23 11/08/24 History breath activated powder inhaler cholecalciferol (vitamin D3) 50 50 mcg PO DAILY 11/16/23 11/08/24 History mcg (2,000 unit) capsule losartan 50 mg tablet 50 mg PO DAILY 11/16/23 11/08/24 History rosuvastatin 10 mg tablet 10 mg PO DAILY 11/16/23 11/08/24 History aspirin 81 mg tablet,delayed 81 mg PO DAILY #30 tabs 11/24/23 11/08/24 Rx release (Adult Low Dose Aspirin) metoprolol succinate 25 mg 25 mg PO DAILY #30 tabs 06/04/24 11/08/24 Rx tablet,extended release 24 hr (Toprol XL) hydrocodone 7.5 mg-acetaminophen 1 tab PO Q6HP PRN Moderate Pain 06/25/24 11/08/24 History 325 mg tablet (Scale Score 5-6) montelukast 10 mg tablet 10 mg PO DAILY 08/08/24 11/08/24 History omeprazole 40 mg capsule,delayed 40 mg PO DAILY #90 caps 08/27/24 11/08/24 Rx release furosemide 40 mg tablet (Lasix) 80 mg PO DAILY 11/08/24 11/08/24 History New Prescriptions to Start Prescriptions: Allergies Allergy/AdvReac Type Severity Reaction Status Date / Time No Known Allergies Allergy Verified 10/01/24 10:53 Exam (Inpt) Vital signs and Labs for Last 24 Hours: Temp Pulse Resp BP Pulse Ox O2 Del Method 98.5 F 76 14 115/64 95 Room Air 11/09/24 07:55 11/09/24 07:55 11/09/24 07:55 11/09/24 07:55 11/09/24 07:55 11/09/24 11:00 Laboratory Results - last 24 hr 11/09/24 05:36: WBC 7.8 D, RBC 3.68 L, Hgb 11.3 L, Hct 34.1 L, MCV 92.7, MCH 30.7, MCHC 33.1, RDW 11.9, Plt Count 130 L, MPV 11.0 H, Neut % (Auto) 62.8, Lymph % (Auto) 27.9, [place] % (Auto) 6.0, Eos % (Auto) 2.7, Baso % (Auto) 0.3, Neut # (Auto) 4.9, Lymph # (Auto) 2.2, [place] # (Auto) 0.5, Eos # (Auto) 0.2, Baso # (Auto) 0.0, Sodium 137, Potassium 3.9, Chloride 102, Carbon Dioxide 28, Anion Gap 10.9, BUN 15, Creatinine 0.90 D, Estimated Creat Clear 47, Estimated GFR 64, Est GFR ( Amer) 77 D, Glucose 101 H, Calcium 8.7, Magnesium 1.8, Total Bilirubin 0.7, AST 21, ALT 12, Alkaline Phosphatase 72, Total Protein 5.9 L, Albumin 3.5 D, Globulin 2.4, Albumin/Globulin Ratio 1.5 I & O for Labs for Last 24 Hours: Intake & Output 11/07/24 11/08/24 11/09/24 11/10/24 11:59 11:59 11:59 11:59 Intake Total 1150 / 1150 2620 / 2620 Output Total 0 / 0 0 / 0 Balance 1150 / 1150 2620 / 2620 0 / 0 Weight 237 lb 240 lb 12.8 oz Microbiology Reports for the Last 24 Hours: Microbiology 11/08/24 02:23 Blood Blood Culture - Preliminary NO GROWTH AFTER 24 HOURS 11/08/24 02:23 Blood Blood Culture - Preliminary NO GROWTH AFTER 24 HOURS Constitutional: no acute distress Respiratory: Absent respiratory distress GI: Present soft and tenderness (Mid abdomen and right lower quadrant); Absent distention, guarding or rebound Results Labs 11/09/24 05:36 11/09/24 05:36 Labs: Laboratory Results - last 24 hr 11/09/24 05:36: WBC 7.8 D, RBC 3.68 L, Hgb 11.3 L, Hct 34.1 L, MCV 92.7, MCH 30.7, MCHC 33.1, RDW 11.9, Plt Count 130 L, MPV 11.0 H, Neut % (Auto) 62.8, Lymph % (Auto) 27.9, [place] % (Auto) 6.0, Eos % (Auto) 2.7, Baso % (Auto) 0.3, Neut # (Auto) 4.9, Lymph # (Auto) 2.2, [place] # (Auto) 0.5, Eos # (Auto) 0.2, Baso # (Auto) 0.0, Sodium 137, Potassium 3.9, Chloride 102, Carbon Dioxide 28, Anion Gap 10.9, BUN 15, Creatinine 0.90 D, Estimated Creat Clear 47, Estimated GFR 64, Est GFR ( Amer) 77 D, Glucose 101 H, Calcium 8.7, Magnesium 1.8, Total Bilirubin 0.7, AST 21, ALT 12, Alkaline Phosphatase 72, Total Protein 5.9 L, Albumin 3.5 D, Globulin 2.4, Albumin/Globulin Ratio 1.[address] scan - abdomen: report reviewed and image reviewed CT scan - pelvis: report reviewed and image reviewed Assessment and Plan *Assessment and plan (1) Acute cecitis: Problem Comment: Radiographic evidence more consistent with cecal colitis. Currently white blood cell count normalized. No left shift. Status: Acute Category: Medical Code(s): K52.9 - Noninfective gastroenteritis and colitis, unspecified Plan: Radiographic evidence more consistent with cecal colitis. Secondary to regional inflammation, appendicitis cannot be ruled out with 100% certainty; however, this is less likely given the entirety of the radiographic findings and laboratory findings. I have discussed the risks and benefits of diagnostic laparoscopy (including possible appendectomy, possible ileocecectomy, possible right hemicolectomy, and possible conversion to an open procedure). Seemingly, the risks of any intervention would greatly outweigh any potential benefits at this time. Continue antibiotics as per primary service Resume diet today (NPO after midnight if she is not discharged). Serial exams
[2024-11-09] MEDS: NICOTINE 21MG/24HR PATCH 21 MG TD (13:27)
[2024-11-09] MEDS: KETOROLAC 30MG/ML VIAL 30 MG IV ×2 (14:13→20:40)
[2024-11-09 15:52] VITALS: BMI 42.6
--- NOTE | 2024-11-09 15:57 | P.PN_ITS ---
Subjective *Date: 11/09/24 *Time: 20:42 Interval history: Planing of significant right lower pain still with no significant improvement since admission. Patient worried about her appendix. Reassured that her imaging stated normal appendix per radiology. Discussed consulting surgery, she requested to have them evaluate for extra assurance. Denies any fever. No nausea or vomiting. Tolerating p.o. intake. Would like to try alternative therapy for pain. Somewhat tearful on exam Medical Exam Vital signs and Labs for Last 24 Hours: Vital Signs Temp Pulse Resp BP Pulse Ox O2 Del Method 11/09/24 15:00 Room Air 11/09/24 13:05 Room Air 11/09/24 11:00 Room Air 11/09/24 08:50 Room Air 11/09/24 08:00 Room Air 11/09/24 07:55 98.5 F 76 14 115/64 95 Room Air 11/09/24 06:29 Room Air 11/09/24 05:00 Room Air 11/09/24 04:00 98.4 F 69 16 123/63 95 Room Air 11/09/24 03:00 Room Air 11/09/24 01:00 Room Air 11/08/24 23:00 Room Air 11/08/24 21:00 Room Air 11/08/24 20:00 Room Air 11/08/24 20:00 99.3 F 65 16 115/51 L 95 Room Air 11/08/24 19:00 Room Air 11/08/24 17:00 Room Air 11/08/24 16:00 98.1 F 59 L 16 103/51 L 93 L Intake and Output 11/08/24 11/09/24 11/09/24 23:59 07:59 15:59 Intake Total 1770 / 3330 50 / 730 680 / 730 Output Total 0 / 0 0 / 0 Balance 1770 / 3330 50 / 730 680 / 730 Intake: Intake, Oral Amount 720 / 1080 580 / 580 Intake, Total IV Amount 1050 / 2250 50 / 150 100 / 150 0.9 % Sodium Chloride 1000ML 1, 1000 / 1000 000 ml @ 50 mls/hr IV .Q20H LOKI Rx#:[id number] Piperacillin/Tazo 3.375 gm In 0 50 / 150 50 / 150 100 / 150 .9 % Sodium Chloride 50 ml @ 100 mls/hr IV Q6H LOKI Rx#: [id number] Output: Output, Urine Amount 0 / 0 0 / 0 Other: Number of Unmeasured Voids 1 1 Number of Bowel Movements 1 Weight 109.225 kg 109.225 kg Patient Weight 11/09/24 23:59 Weight 109.225 kg Laboratory Results - last 24 hr 11/09/24 05:36: WBC 7.8 D, RBC 3.68 L, Hgb 11.3 L, Hct 34.1 L, MCV 92.7, MCH 30.7, MCHC 33.1, RDW 11.9, Plt Count 130 L, MPV 11.0 H, Neut % (Auto) 62.8, Lymph % (Auto) 27.9, [place] % (Auto) 6.0, Eos % (Auto) 2.7, Baso % (Auto) 0.3, Neut # (Auto) 4.9, Lymph # (Auto) 2.2, [place] # (Auto) 0.5, Eos # (Auto) 0.2, Baso # (Auto) 0.0, Sodium 137, Potassium 3.9, Chloride 102, Carbon Dioxide 28, Anion Gap 10.9, BUN 15, Creatinine 0.90 D, Estimated Creat Clear 47, Estimated GFR 64, Est GFR ( Amer) 77 D, Glucose 101 H, Calcium 8.7, Magnesium 1.8, Total Bilirubin 0.7, AST 21, ALT 12, Alkaline Phosphatase 72, Total Protein 5.9 L, Albumin 3.5 D, Globulin 2.4, Albumin/Globulin Ratio 1.5 I & O for Labs for Last 24 Hours: Intake & Output 11/06/24 11/07/24 11/08/24 11/09/24 23:59 23:59 23:59 23:59 Intake Total 3330 / 3330 730 / 730 Output Total 0 / 0 Balance 3330 / 3330 730 / 730 Weight 107.501 kg 109.225 kg Microbiology Reports for the Last 24 Hours: Microbiology 11/08/24 02:23 Blood Blood Culture - Preliminary NO GROWTH AFTER 24 HOURS 11/08/24 02:23 Blood Blood Culture - Preliminary NO GROWTH AFTER 24 HOURS Constitutional: Present mild distress, morbidly obese, chronically ill appearing and cooperative Head: Present atraumatic and normocephalic ENT: Present normal exam Respiratory: Present normal respiratory effort; Absent rhonchi, stridor or wheezes Cardiac: Present Reg Rate and Rhythm GI: Present soft, tenderness (Moderate in right lower quadrant) and normal bowel sounds; Absent distention, guarding or rebound Extremities: Present normal inspection and full ROM Skin: Present intact; Absent erythema Neuro: Present Grossly Intact, alert, awake, oriented x 3 and moves all extremities Assessment and Plan *Assessment and plan (1) Acute cecitis: Problem Comment: Radiographic evidence more consistent with cecal colitis. Currently white blood cell count normalized. No left shift. Status: Acute Category: Medical Code(s): K52.9 - Noninfective gastroenteritis and colitis, unspecified (2) Hypertension: Status: Acute Qualifiers: Hypertension type: primary hypertension Qualified Code(s): I10 - Essential (primary) hypertension Category: Medical Code(s): I10 - Essential (primary) hypertension (3) Hyperlipidemia: Status: Acute Qualifiers: Hyperlipidemia type: mixed hyperlipidemia Qualified Code(s): E78.2 - Mixed hyperlipidemia Category: Medical Code(s): E78.5 - Hyperlipidemia, unspecified (4) Acute colitis: Status: Acute Category: Medical Code(s): K52.9 - Noninfective gastroenteritis and colitis, unspecified (5) GARCÍA (obstructive sleep apnea): Status: Acute Category: Medical Code(s): G47.33 - Obstructive sleep apnea (adult) (pediatric) (6) Morbid obesity with BMI of 40.0-44.9, adult: Status: Chronic Category: Medical Code(s): E66.01 - Morbid (severe) obesity due to excess calories; Z68.41 - Body mass index [BMI] 40.0-44.9, adult Plan Patient is a 59-year-old female with past medical history of obstructive sleep apnea, COPD, hypertension and hyperlipidemia, tobacco use who presents to the hospital due to abdominal pain. According to the patient her abdominal pain is localized in right lower quadrant abdominal pain, severe intensity, overall, deep and persistent for past 1 day. Patient mentions she has subjective fevers otherwise denied diarrhea constipation dysuria. On further evaluation patient had CT abdomen pelvis which did show possible inflammation in cecum concerning for colitis. Still having pain. Will adjust pain regimen today. Surgery consulted to evaluate given right lower quadrant pain and to monitor for appendicitis. Continues to require patient management. Problems addressed as follows: Acute cecal colitis - Still having significant pain with oral hydrocodone. Will initiate Toradol 30 mg IV every 6 hours. - No nausea. Tolerating p.o. intake - White count remains normal at 7.8. Hemoglobin 11.3 - Repeat CBC, CMP, magnesium ordered for the morning - Continue hydrocodone 1 tab as needed every 4 hours with increased frequency. Monitor for toxicity. - Continue Zosyn 3.375 g every 6 hours. Chronic medical conditions COPD Hypertension Hyperlipidemia - Blood pressure well-controlled. Will hold Lasix, losartan, metoprolol at this time. Resume the morning tomorrow. Holding statin due to pain and inflammation of digestive tract DVT prophylaxis-subcutaneous heparin Full diet Full code
[2024-11-09 16:00] VITALS: BP 119/68; PULSE 68; RESP 16; TEMP 36.6; O2SAT 96
--- NOTE | 2024-11-09 18:33 | PC.NURSE ---
Pain managed with prn pain medication, patient able to eat and tolerate regular diet. VS stable. Bowel sounds active.
[2024-11-09 20:00] VITALS: BP 135/86; PULSE 70; RESP 16; TEMP 36.7; O2SAT 96
[2024-11-09] MEDS: OMEPRAZOLE 40 MG 1 EACH PO (20:30)
[2024-11-09] MEDS: ROSUVASTATIN 10 MG 1 EACH PO (20:30)
[2024-11-10] MEDS: PIPERACILLIN/TAZO 3.375 GM in 0.9 % SODIUM CHLORIDE 50 ML IV ×2 (02:21→09:05)
--- NOTE | 2024-11-10 03:35 | PC.NURSE ---
Patient is alert and oriented x4. She was observed to be resting in bed with eyes closed, respirations even and unlabored on room air, and no apparent distress throughout the majority of the night. Her significant other has remained at the bedside. Patient has complained of moderately-rated, sharp, persistent, lower abdominal pain (w + w/o palpating) this shift of which has been treated with Toradol (stated it works best for her pain). Upon pain assessment this morning, the patient stated that her abdominal pain felt better and did not need any Toradol at this time. Patient tolerated a regular diet without nausea/vomiting or worsening abdominal pain. Fair appetite reported. She has remained NPO since midnight this shift pending general surgery recommendations and verbalized an understanding of this. Patient ambulates independently without difficulties. Auscultation of heart, lungs, and bowels within normal findings. Vital signs stable. At this time, the patient is resting in bed without any further complaints. No acute changes noted thus far. Call light within reach.
[2024-11-10 04:00] VITALS: BP 116/64; PULSE 75; RESP 14; TEMP 36.8; O2SAT 97; BMI 43.6
[2024-11-10 07:29] LABS: Hematocrit 33.0 % (37.0-47.0); Hemoglobin 11.1 g/dL (12.2-16.2); Immature Granulocytes % 0.6 %; Mean Corpuscular HGB Conc 33.6 g/dL (31.8-35.4); Mean Corpuscular Hemoglobin 31.4 pg (27.0-31.2); Mean Corpuscular Volume 93.2 fl (81-99); Nucleated Red Blood Cells % 0 %; Platelet Count 123 K/mm3 (142-424); Red Blood Count 3.54 M/mm3 (4.20-5.40); Red Cell Distribution Width-SD 41.0 fL; White Blood Count 5.4 K/mm3 (4.8-10.8)
[2024-11-10 08:08] LABS: Albumin Level 3.4 g/dl (3.5-5.0); Chloride 106 mmol/L (98-107); Potassium 4.0 mmoL/L (3.5-5.1); Sodium 143 mmol/L (136-145)
[2024-11-10 08:10] VITALS: BP 158/78; PULSE 69; RESP 14; TEMP 36.6; O2SAT 98
[2024-11-10 08:11] LABS: Alanine Aminotransferase 14 U/L (12-78); Albumin/Globulin Ratio 1.4 (1.1-1.8); Alkaline Phosphatase 88 U/L (38-126); Anion Gap 11.0 mEq/L (5-15); Aspartate Amino Transferase 22 U/L (14-36); Bilirubin,Total 0.3 mg/dl (0.2-1.3); Blood Urea Nitrogen 21 mg/dl (7-17); Carbon Dioxide 30 mmol/L (22.0-30.0); Creatinine Clearance Estimated 42 mL/min (50-200); Creatinine,Serum 1.10 mg/dl (0.52-1.04); Estimated Glomerular Filt Rate 50 ml/min (>60); GFR (African American) 61 ML/MIN (>60); Globulin 2.4 g/dL (1.3-3.2); Total Protein,Serum 5.8 g/dl (6.3-8.2)
[2024-11-10 08:12] LABS: Calcium 8.7 mg/dl (8.4-10.2); Glucose 125 mg/dl (74-100)
[2024-11-10] MEDS: METOPROLOL SUCCINATE XL 25MG TABLET 25 MG PO (09:05)
[2024-11-10] MEDS: ASPIRIN EC 81MG TABLET 81 MG PO (09:05)
--- NOTE | 2024-11-10 09:20 | EXP.DC.SUM ---
General Admission date:: 11/08/24 Discharge date: 11/10/24 HPI HPI HPI: Patient is a 59-year-old female with past medical history of obstructive sleep apnea, COPD, hypertension and hyperlipidemia, tobacco use who presents to the hospital due to abdominal pain. According to the patient her abdominal pain is localized in right lower quadrant abdominal pain, severe intensity, overall, deep and persistent for past 1 day. Patient mentions she has subjective fevers otherwise denied diarrhea constipation dysuria. On further evaluation patient had CT abdomen pelvis which did show possible inflammation in cecum concerning for colitis. Hospital Course Hospital Course Hospital Course: Patient is a 59-year-old female with past medical history of obstructive sleep apnea, COPD, hypertension and hyperlipidemia, tobacco use who presents to the hospital due to abdominal pain. According to the patient her abdominal pain is localized in right lower quadrant abdominal pain, severe intensity, overall, deep and persistent for past 1 day. Patient mentions she has subjective fevers otherwise denied diarrhea constipation dysuria. On further evaluation patient had CT abdomen pelvis which did show possible inflammation in cecum concerning for colitis. Still having pain. Will adjust pain regimen today. Surgery consulted to evaluate given right lower quadrant pain and to monitor for appendicitis. Given improvement with pain with initiation of Toradol and normal white count, appendicitis very low concern. Needs close follow-up as an outpatient for repeat exam and to monitor resolution of symptoms. Advance diet as tolerated. Complete course of empiric antibiotics for colitis. Stable discharge home. Problems addressed as follows: Acute cecal colitis - Presented with significant pain. Resumed home hydrocodone regimen with little benefit of pain management. Initiated Toradol with significant improvement. White count remained normal during duration of hospitalization. Improved to 5.4 on day of discharge. Because of persistent pain, even in light of CT findings showing inflammation of the cecum, surgery was consulted to evaluate out of concern for potential appendicitis. Serial exams improved with treatment with pain control. White count remained normal. Low suspicion for appendicitis. Findings most consistent with cecal colitis. Treated empirically with Zosyn during admission. Transition to Levaquin Flagyl at discharge to complete empiric 5-day course. Chronic medical conditions: COPD Hypertension Hyperlipidemia - Blood pressure well-controlled. Held regimen during admission. She is tolerating more intake and blood pressure increasing by discharge, recommend resuming home regimen at discharge. Total time spent on discharge 37 minutes in counseling, documentation, chart review, and direct care with patient. Exam Data for Last 24 hours Vital signs and Labs for Last 24 Hours: Temp Pulse Resp BP Pulse Ox O2 Del Method 98.4 F 69 16 123/63 95 Room Air 11/09/24 04:00 11/09/24 04:00 11/09/24 04:00 11/09/24 04:00 11/09/24 04:00 11/09/24 06:29 Laboratory Results - last 24 hr 11/09/24 05:36: WBC 7.8 D, RBC 3.68 L, Hgb 11.3 L, Hct 34.1 L, MCV 92.7, MCH 30.7, MCHC 33.1, RDW 11.9, Plt Count 130 L, MPV 11.0 H, Neut % (Auto) 62.8, Lymph % (Auto) 27.9, [place] % (Auto) 6.0, Eos % (Auto) 2.7, Baso % (Auto) 0.3, Neut # (Auto) 4.9, Lymph # (Auto) 2.2, [place] # (Auto) 0.5, Eos # (Auto) 0.2, Baso # (Auto) 0.0 I & O for Last 24 hours: Intake & Output 11/06/24 11/07/24 11/08/24 11/09/24 23:59 23:59 23:59 23:59 Intake Total 3330 / 3330 50 / 50 Output Total 0 / 0 Balance 3330 / 3330 50 / 50 Weight 107.501 kg 109.225 kg Microbiology Reports for the Last 24 Hours: Microbiology 11/08/24 02:23 Blood Blood Culture - Preliminary NO GROWTH AFTER 24 HOURS 11/08/24 02:23 Blood Blood Culture - Preliminary NO GROWTH AFTER 24 HOURS Constitutional Constitutional: no acute distress, morbidly obese and cooperative *Routine HEENT Exam Head: Present normocephalic Eye: Present EOMI and PERRL ENT: Present mucous membranes moist *Routine Neck Exam Neck: Present supple; Absent lymphadenopathy *Routine Respiratory Exam Respiratory: Present CTA bilaterally; Absent rhonchi, wheezes or crackles *Routine Cardiovascular Exam Cardiovascular: Present RRR *Routine Abdominal Exam Abdominal: Present soft, normoactive bowel sounds and tenderness (Right lower quadrant, no rebound or guarding); Absent distended *Routine Rectal Exam Patient deferred: visual exam *Routine Exam Patient deferred: external exam *Routine Extremities Exam Extremities: Absent cyanosis, clubbing or edema *Routine Skin Exam Skin: Present intact and warm; Absent rash *Routine Neurological Exam Neurological: Present alert, oriented X3 and moving all extremities; Absent altered mental status Results Data Completed and Pending Labs on day of discharge: Labs from last 24 hours 11/09/24 05:36 WBC 7.8 D RBC 3.68 L Hgb 11.3 L Hct 34.1 L MCV 92.7 MCH 30.7 MCHC 33.1 RDW 11.9 Plt Count 130 L MPV 11.0 H Neut % (Auto) 62.8 Lymph % (Auto) 27.9 [place] % (Auto) 6.0 Eos % (Auto) 2.7 Baso % (Auto) 0.3 Neut # (Auto) 4.9 Lymph # (Auto) 2.2 [place] # (Auto) 0.5 Eos # (Auto) 0.2 Baso # (Auto) 0.0 Preliminary micro results at discharge 11/08/24 02:23 Blood Culture - Preliminary Blood NO GROWTH AFTER 24 HOURS 11/08/24 02:23 Blood Culture - Preliminary Blood NO GROWTH AFTER 24 HOURS DS: Diagnosis Discharge Diagnosis (1) Hypertension: Status: Acute Code(s): I10 - Essential (primary) hypertension Qualifiers: Hypertension type: primary hypertension Qualified Code(s): I10 - Essential (primary) hypertension (2) Hyperlipidemia: Status: Acute Code(s): E78.5 - Hyperlipidemia, unspecified Qualifiers: Hyperlipidemia type: mixed hyperlipidemia Qualified Code(s): E78.2 - Mixed hyperlipidemia (3) Acute colitis: Status: Acute Code(s): K52.9 - Noninfective gastroenteritis and colitis, unspecified (4) Morbid obesity with BMI of 40.0-44.9, adult: Status: Chronic Code(s): E66.01 - Morbid (severe) obesity due to excess calories; Z68.41 - Body mass index [BMI] 40.0-44.9, adult (5) Acute cecitis: Status: Acute Code(s): K52.9 - Noninfective gastroenteritis and colitis, unspecified Problem details: Radiographic evidence more consistent with cecal colitis. Currently white blood cell count normalized. No left shift. (6) GARCÍA (obstructive sleep apnea): Status: Acute Code(s): G47.33 - Obstructive sleep apnea (adult) (pediatric) Meds Home Medications and Allergies Home Medications ?Medication ?Instructions ?Recorded ?Confirmed ?Type albuterol sulfate 90 mcg/actuation 2 inh inhalation Q4-6H PRN SOB 11/16/23 11/08/24 History breath activated powder inhaler cholecalciferol (vitamin D3) 50 50 mcg PO DAILY 11/16/23 11/08/24 History mcg (2,000 unit) capsule losartan 50 mg tablet 50 mg PO DAILY 11/16/23 11/08/24 History rosuvastatin 10 mg tablet 10 mg PO DAILY 11/16/23 11/08/24 History aspirin 81 mg tablet,delayed 81 mg PO DAILY #30 tabs 11/24/23 11/08/24 Rx release (Adult Low Dose Aspirin) metoprolol succinate 25 mg 25 mg PO DAILY #30 tabs 06/04/24 11/08/24 Rx tablet,extended release 24 hr (Toprol XL) hydrocodone 7.5 mg-acetaminophen 1 tab PO Q6HP PRN Moderate Pain 06/25/24 11/08/24 History 325 mg tablet (Scale Score 5-6) montelukast 10 mg tablet 10 mg PO DAILY 08/08/24 11/08/24 History omeprazole 40 mg capsule,delayed 40 mg PO DAILY #90 caps 08/27/24 11/08/24 Rx release furosemide 40 mg tablet (Lasix) 80 mg PO DAILY 11/08/24 11/08/24 History ketorolac 10 mg tablet 10 mg PO Q6H PRN pain #12 tabs 11/10/24 Rx levofloxacin 750 mg tablet 750 mg PO 1100 2 days #2 tabs 11/10/24 Rx metronidazole 500 mg tablet 500 mg PO Q8H #9 tabs 11/10/24 Rx New Prescriptions to Start Prescriptions: ketoDonis Fernandes levofloxacin Zita,Donis metronidazole Donis Ahumada Allergies Allergy/AdvReac Type Severity Reaction Status Date / Time No Known Allergies Allergy Verified 10/01/24 10:53 Discharge Plan Disposition Patient Disposition: Home, Self-Care Condition: Fair Follow up Plan Follow up with: Annetta Gupta APRN [Primary Care Provider, Medical] - Enter time for follow up Referral Note: Please call office for follow up appointment Burt Frederick MD [Staff Physician, General Surgery] - 1 week Referral Note: Office will call with follow up appointment Prescriptions/Medication Reconciliation: New ketorolac 10 mg tablet 10 mg PO Q6H PRN (Reason: pain) Qty: 12 0RF Rx Instructions: tolerated IV formulation as inpatient levofloxacin 750 mg Tablet 750 mg PO 1100 2 Days Qty: 2 0RF Rx Instructions: first dose 11/11 metronidazole 500 mg tablet 500 mg PO Q8H Qty: 9 0RF Continued aspirin [Adult Low Dose Aspirin] 81 mg tablet,delayed release (DR/EC) 81 mg PO DAILY Qty: 30 5RF montelukast 10 mg tablet 10 mg PO DAILY Patient Comments: TAKE 1 TABLET BY MOUTH ONCE DAILY rosuvastatin 10 mg tablet 10 mg PO DAILY losartan 50 mg tablet 50 mg PO DAILY albuterol sulfate 90 mcg/actuation aerosol powdr breath activated 2 inh inhalation Q4-6H PRN (Reason: SOB) cholecalciferol (vitamin D3) 50 mcg (2,000 unit) capsule 50 mcg PO DAILY metoprolol succinate [Toprol XL] 25 mg tablet extended release 24 hr 25 mg PO DAILY Qty: 30 5RF omeprazole 40 mg capsule,delayed release(DR/EC) 40 mg PO DAILY Qty: 90 3RF hydrocodone-acetaminophen 7.5-325 mg tablet 1 tab PO Q6HP PRN (Reason: Moderate Pain (Scale Score 5-6)) furosemide [Lasix] 40 mg tablet 80 mg PO DAILY Problem Reconciliation Problems Reviewed?: Yes Patient Discharge Instructions ACTIVITY: Continue current activity DIET: continue same diet Patient Instructions: DI for Diverticulitis, DI for Colitis, Stop Light COPD, Stop Light Infection Print Language: Moz[place]ican Providers Primary Care Provider: Annetta Gupta Admit Provider: Donis Ahumada Attending Provider: Donis Ahumada
--- NOTE | 2024-11-10 09:53 | P.PN_ITS ---
Subjective Patient reports: no new complaints and feels better Exam Data for Last 24 hours Vital signs and Labs for Last 24 Hours: Temp Pulse Resp BP Pulse Ox O2 Del Method 97.8 F 69 14 158/78 H 98 Room Air 11/10/24 08:10 11/10/24 08:10 11/10/24 08:10 11/10/24 08:10 11/10/24 08:10 11/10/24 09:00 Laboratory Results - last 24 hr 11/09/24 05:36: Sodium 137, Potassium 3.9, Chloride 102, Carbon Dioxide 28, Anion Gap 10.9, BUN 15, Creatinine 0.90 D, Estimated Creat Clear 47, Estimated GFR 64, Est GFR ( Amer) 77 D, Glucose 101 H, Calcium 8.7, Magnesium 1.8, Total Bilirubin 0.7, AST 21, ALT 12, Alkaline Phosphatase 72, Total Protein 5.9 L, Albumin 3.5 D, Globulin 2.4, Albumin/Globulin Ratio 1.5 11/10/24 06:30: WBC 5.4 D, RBC 3.54 L, Hgb 11.1 L, Hct 33.0 L, MCV 93.2, MCH 31.4 H, MCHC 33.6, RDW 11.9, Plt Count 123 L, MPV 11.3 H, Neut % (Auto) 51.4, Lymph % (Auto) 36.3, [place] % (Auto) 7.4, Eos % (Auto) 3.7, Baso % (Auto) 0.6, Neut # (Auto) 2.8, Lymph # (Auto) 2.0, [place] # (Auto) 0.4, Eos # (Auto) 0.2, Baso # (Auto) 0.0, Sodium 143, Potassium 4.0, Chloride 106, Carbon Dioxide 30, Anion Gap 11.0, BUN 21 H D, Creatinine 1.10 H D, Estimated Creat Clear 42, Estimated GFR 50 L, Est GFR ( Amer) 61 D, Glucose 125 H, Calcium 8.7, Total Bilirubin 0.3, AST 22, ALT 14, Alkaline Phosphatase 88, Total Protein 5.8 L, Albumin 3.4 L, Globulin 2.4, Albumin/Globulin Ratio 1.4 I & O for Last 24 hours: Intake & Output 11/07/24 11/08/24 11/09/2420/25 11:59 11:59 11:59 11:59 Intake Total 1150 / 1150 2620 / 2620 2300 / 2300 Output Total 0 / 0 250 / 250 Balance 1150 / 1150 2620 / 2620 2049 Weight 237 lb 240 lb 12.8 oz 246 lb Microbiology Reports for the Last 24 Hours: Microbiology 11/08/24 02:23 Blood Blood Culture - Preliminary NO GROWTH AFTER 48 HOURS 11/08/24 02:23 Blood Blood Culture - Preliminary NO GROWTH AFTER 48 HOURS Constitutional Constitutional: no acute distress *Routine Respiratory Exam Respiratory: Absent respiratory distress *Routine Cardiovascular Exam Cardiovascular: Absent tachycardia *Routine Abdominal Exam Abdominal: Present soft and tenderness (Persistent but improved) Progress Note: A&P Assessment and plan (1) Acute colitis: Status: Acute Assessment and plan: Improving on current management Okay from surgical standpoint for discharge home with outpatient follow-up Complete course of antibiotics
--- NOTE | 2024-11-12 11:02 | SW/DCPLANNER ---
Spoke with patient on the phone. Patient stated that she is doing good. Patient stated that she is aware of her upcoming appointments. patient stated that she was able to get her new medicine picked up from [id number]. Patient stated that she has no concerns or questions at this time. Johanne moya
== END 2024-11-10 10:20 | disposition home or self-care (01) ==
LOC: ER 11-08 02:12 → 2ND 11-08 02:14
PROVIDERS: Internal Medicine; Admitting Provider Internal Medicine Adolescent Medicine; Emergency Provider Emergency Medicine; PCP Nurse Practitioner; Visit Provider Internal Medicine Adolescent Medicine
DX: K52.9 Noninfective gastroenteritis and colitis, unspecified (principal); I10 Essential (primary) hypertension; J44.9 Chronic obstructive pulmonary disease, unspecified; E78.2 Mixed hyperlipidemia; G47.33 Obstructive sleep apnea (adult) (pediatric); E66.01 Morbid (severe) obesity due to excess calories; J84.9 Interstitial pulmonary disease, unspecified; I25.10 Atherosclerotic heart disease of native coronary artery without angina pectoris; D72.829 Elevated white blood cell count, unspecified; K80.20 Calculus of gallbladder without cholecystitis without obstruction; F17.200 Nicotine dependence, unspecified, uncomplicated; N20.0 Calculus of kidney; Z68.41 Body mass index [BMI] 40.0-44.9, adult; Z79.82 Long term (current) use of aspirin; Z79.899 Other long term (current) drug therapy
CPT/HCPCS: 36415; 74177; 80048; 80053; 81001; 83735; 85025; 85610; 86803; 87040; 87389; 96361; 96365; 96366; 96375; 96376; 99284; G0378; J1644; J1885; J2270; J2405; J2543; J7030; J7120; Q9967

== ENCOUNTER 2024-12-24 15:00 | Outpatient (CLI) | payer MEDICARE, MEDICAID, SELFPAY ==
--- OUTSIDE RECORDS SUMMARY | 2024-04-02 09:17 | XMS_ITS | Continuity of Care Document ---
Author Organization [facility] Address [address] [place] [address] Phone Care Team Providers Care Aircraft Electrician Name Role Phone Gopi Gonsales Unavailable Unavailable Allergies, Adverse Reactions, Alerts Substance Reaction Status Criticality azithromycin Active No Information prednisone red face really hot Active No Infor mation Medications Medication Instructions Dosage Effective Dates (start - stop) Status Comments rosuvastatin 10 mg tablet TAKE 1 TABLET BY MOUTH EVERY DAY - Active diclofenac 1 % topical gel apply (2G) by topical route 4 times every day to the affected area(s) 2 G - Active LOSARTAN 50MG TABLETS TAKE 1 TABLET BY M OUTH EVERY DAY FOR BLOOD PRESSURE - Active Procedures Procedure Date PSYTX W PT 30 MINUTES Consultation No Charge PSYTX W PT 30 MINUTES PSYTX W PT 30 MINUTES No Charge Consultation PSYCHOTHERAPY 30 MIN W/PT AND/OR FAMILY MEMBER No Charge Consultation PSYCHOTHERAPY 60 MIN W/PT AND/OR FAMILY MEMBER In Office Visit Attempted Contact Consultation PSYCHOTHERAPY 60 MIN W/PT AND/OR FAMILY MEMBER Home Visit Basic Needs Assistance In Office Visit Advocacy Patient Registration- Update PSYCHOTHERAPY 60 MIN W/PT AND/OR FAMILY MEMBER Attempted Contact Advocacy Advocacy Attempted Contact Consultation Consultation Attempted Contact Home Visit Consultation Consultation PSYCHOTHERAPY 60 MIN W/PT AND/OR FAMILY MEMBER Home Visit Home Visit Advocacy Home Visit Phone Call- Contacted Consultation PSYCHOTHERAPY 60 MIN W/PT AND/OR FAMILY MEMBER PSYCHOTHERAPY 60 MIN W/PT AND/OR FAMILY MEMBER Home Visit Phone Call- Contacted Advocacy Home Visit Phone Call- Contacted Advocacy Phone Call- Contacted Linkage/Referral Phone Call- Contacted Consultation Home Visit Basic Needs Assistance Phone Call- Contacted Home Visit Linkage/Referral Home Visit PSYCHOTHERAPY 60 MIN W/PT AND/OR FAMILY MEMBER Home Visit Phone Call- Contacted PSYCHOTHERAPY 60 MIN W/PT AND/OR FAMILY MEMBER PSYCHOTHERAPY 60 MIN W/PT AND/OR FAMILY MEMBER Advocacy Phone Call- Contacted Advocacy Advocacy Home Visit Advocacy Advocacy Phone Call- Contacted Advocacy Phone Call- Contacted Phone Call- Contacted Advocacy Home Visit Patient Transportation Linkage/Referral Attempted Contact Home Visit Phone Call- Contacted Phone Call- Contacted Home Visit PSYCHOTHERAPY 60 MIN W/PT AND/OR FAMILY MEMBER PSYTX W PT 30 MINUTES Home Visit F/U CCM- Chronic Case Management 2022 Health Education Phone Call- Contacted Attempted Contact Phone Call- Contacted Home Visit Advocacy Phone Call- Contacted Home Visit Attempted Contact PSYCHOTHERAPY 60 MIN W/PT AND/OR FAMILY MEMBER PSYCHOTHERAPY 60 MIN W/PT AND/OR FAMILY MEMBER OFFICE/OUTPATIENT VISIT, EST URINALYSIS, AUTO, W/O SCOPE Microalbumin, Urine In Office Visit Health Education F/U CCM- Chronic Case Management 2022 Home Visit Basic Needs Assistance Advocacy Phone Call- Contacted Home Visit Home Visit Home Visit Phone Call- Contacted Consultation Attempted Contact Home Visit Home Visit Consultation Advocacy Phone Call- Contacted Health Education F/U CCM- Chronic Case Management 2022 Advocacy Consultation Home Visit Phone Call- Contacted Home Visit Attempted Contact PSYCHOTHERAPY 60 MIN W/PT AND/OR FAMILY MEMBER OFFICE/OUTPATIENT VISIT, EST In Office Visit Health Education New Chronic Case Management CCM PSYCHOTHERAPY 60 MIN W/PT AND/OR FAMILY MEMBER PSYCHOTHERAPY 60 MIN W/PT AND/OR FAMILY MEMBER Advocacy Home Visit Advocacy Home Visit Consultation PSYCHOTHERAPY 60 MIN W/PT AND/OR FAMILY MEMBER PSYCHIATRIC DIAGNOSTIC EVAUL Patient Registration- Update ROUTINE VENIPUNCTURE IMMUNIZATION ADMIN PCV20 VACCINE IM IMMUNIZATION ADMIN, EACH ADD TDAP VACCINE >7 IM PREV VISIT, EST, AGE 40-64 Medical Records Request MEDICAL NUTRITION, INDIV, IN OFFICE/OUTPATIENT VISIT, EST Patient Registration- Update ROUTINE VENIPUNCTURE PREV VISIT, EST, AGE 40-64 URINALYSIS, AUTO, W/O SCOPE In Office Visit Health Education Screening BP Patient Registration- NEW OFFICE/OUTPATIENT VISIT, NEW Advance Directives Directive Yes / No Effective Date File Name No Information Encounters Encounter Description Practice Location Reason(s) For Visit Diagnoses Date Provider Providers Copied on Encounter [facility], [address] [place] [address], [id number], [place] tel:[phone] [facility] No Information 5 Dru Nguyễn. [address] [place] [address], [id number], [place]. tel:[phone] PSYTX W PT 30 MINUTES [facility], [address] [place] [address], [id number], [place] tel:[phone] [facility] Bipolar disorderPost -traumatic stress disorder, chronic 5 Dru Nguyễn. [address] [place] [address], [id number], [place]. tel:[phone] Referring Provider: Campbell Gavin, [address] [place] [address], [id number]. tel:[phone] [facility], [address] [place] [address], [id number], [place] tel:[phone] [facility] No Information 4 Management Case. . Referring Provider: Case Management. Consulting Provider: Leslie Matute. [facility], [address] [place] [address], [id number], tel:[phone] [facility] No Information 4 Management Case. . Referring Provider: Case Management. Consulting Provider: Leslie Matute. PSYTX W PT 30 MINUTES [facility], [address] [place] [address], [id number], tel:[phone] [facility] Post-traumat ic stress disorder, chronicAnxie tyAnxiety depression 4 Dru Gopi. [address] [place] [address], [id number], [place]. tel:[phone] Referring Provider: Gopi Durbin, [address] [place] [address], [id number]. tel:[phone] PSYTX W PT 30 MINUTES [facility], [address] [place] [address], [id number], [place] tel:[phone] [facility] Post-traumat ic stress disorder, chronicDepre ssionAnxiety 4 Dru Nguyễn. [address] [place] [address], [id number], [place]. tel:[phone] Referring Provider: Gopi Durbin, [address] [place] [address], [id number]. tel:[phone] [facility], [address] [place] [address], [id number], tel:[phone] [facility] No Information 4 Management Case. . Referring Provider: Case Management. Consulting Provider: Leslie Matute. PSYCHOTHERAPY 30 MIN W/PT AND/OR FAMILY MEMBER [facility], [address] [place] [address], [id number], tel:[phone] [facility] Post-traumat ic stress disorder, chronicDepre ssionAnxiety Nov- 4 Dru Nguyễn. [address] [place] [address], [id number], . tel:[phone] Referring Provider: Gopi Durbin, [address] [place] [address], [id number]. tel:[phone] [facility], [address] [place] [address], [id number], tel:[phone] [facility] No Information 4 Management Case. . Referring Provider: Case Management. Consulting Provider: Leslie Matute. PSYCHOTHERAPY 60 MIN W/PT AND/OR FAMILY MEMBER [facility], [address] [place] [address], [id number], tel:[phone] [facility] Post-traumat ic stress disorder, chronicAnxie tyDepression 4 Dru Nguyễn. [address] [place] [address], [id number], [place]. tel:[phone] Referring Provider: Gopi Durbin, [address] [place] [address], [id number]. tel:[phone] [facility], [address] [place] [address], [id number], tel:[phone] [facility] No Information 4 Management Case. . Referring Provider: Case Management. Consulting Provider: Leslie Matute. [facility], [address] [place] [address], [id number], tel:[phone] [facility] No Information 4 Management Case. . Referring Provider: Case Management. Consulting Provider: Leslie Matute. PSYCHOTHERAPY 60 MIN W/PT AND/OR FAMILY MEMBER [facility], [address] [place] [address], [id number], tel:[phone] [facility] Post-traumat ic stress disorder, chronicBipol ar disorder 4 Dru Nguyễn. [address] [place] [address], [id number], . tel:[phone] Referring Provider: Gopi Durbin, [address] [place] [address], [id number]. tel:[phone] [facility], [address] [place] [address], [id number], tel:[phone] [facility] No Information 4 Management Case. . Referring Provider: Case Management. Consulting Provider: Leslie Matute. PSYCHOTHERAPY 60 MIN W/PT AND/OR FAMILY MEMBER [facility], [address] [place] [address], [id number], tel:[phone] [facility] Bipolar disorder 4 Dru Nguyễn. [address] [place] [address], [id number], [place]. tel:[phone] Referring Provider: Gopi Durbin, [address] [place] [address], [id number]. tel:[phone] lting Provider: Aaliyah Newsome. [facility], [address] [place] [address], [id number], tel:[phone] [facility] No Information 4 Management Case. . Referring Provider: Case Management. Consulting Provider: Leslie Matute. [facility], [address] [place] [address], [id number], tel:[phone] [facility] No Information 4 Management Case. . Referring Provider: Case Management. Consulting Provider: Leslie Matute. [facility], [address] [place] [address], [id number], tel:[phone] [facility] No Information 4 Management Case. . Referring Provider: Case Management. Consulting Provider: Leslie Matute. [facility], [address] [place] [address], [id number], tel:[phone] [facility] No Information 4 Management Case. . Referring Provider: Case Management. Consulting Provider: Leslie Matute. [facility], [address] [place] [address], [id number], tel:[phone] [facility] No Information 4 Management Case. . Referring Provider: Case Management. Consulting Provider: Leslie Matute. [facility], [address] [place] [address], [id number], tel:[phone] [facility] No Information 4 Management Case. . Referring Provider: Case Management. Consulting Provider: Leslie Matute. [facility], [address] [place] [address], [id number], tel:[phone] [facility] No Information 4 Management Case. . Referring Provider: Case Management. Consulting Provider: Leslie Matute. PSYCHOTHERAPY 60 MIN W/PT AND/OR FAMILY MEMBER [facility], [address] [place] [address], [id number], tel:[phone] [facility] Post-traumat ic stress disorder, chronicDepre ssionAnxiety - 4 Dru Nguyễn. [address] [place] [address], [id number], [place]. tel:[phone] Referring Provider: Gopi Gonsales Ramakrishna, [address] [place] [address], [id number]. tel:[phone] [facility], [address] [place] [address], [id number], tel:[phone] [facility] No Information - 4 Management Case. . Referring Provider: Case Management. Consulting Provider: Leslie Matute. [facility], [address] [place] [address], [id number], tel:[phone] [facility] No Information 4 Management Case. . Referring Provider: Case Management. Consulting Provider: Leslie Matute. [facility], [address] [place] [address], [id number], tel:[phone] [facility] No Information - 4 Management Case. . Referring Provider: Case Management. Consulting Provider: Leslie Matute. [facility], [address] [place] [address], [id number], tel:[phone] [facility] No Information 4 Management Case. . Referring Provider: Case Management. Consulting Provider: Leslie Matute. [facility], [address] [place] [address], [id number], tel:[phone] [facility] No Information 0 - 4 Management Case. . Referring Provider: Case Management. Consulting Provider: Leslie Matute. PSYCHOTHERAPY 60 MIN W/PT AND/OR FAMILY MEMBER [facility], [address] [place] [address], [id number], tel:[phone] [facility] Post-traumat ic stress disorder, chronic Mar-2 2-202 4 Dru Medinan. [address] [place] [address], [id number], . tel:[phone] Referring Provider: Gopi Durbin, [address] [place] [address], [id number]. tel:[phone] PSYCHOTHERAPY 60 MIN W/PT AND/OR FAMILY MEMBER [facility], [address] [place] [address], [id number], tel:[phone] [facility] Post-traumat ic stress disorder, chronic Mar-1 3- 4 Dru Medinan. [address] [place] [address], [id number], [place]. tel:[phone] Referring Provider: Gopi Durbin, [address] [place] [address], [id number]. tel:[phone] [facility], [address] [place] [address], [id number], tel:[phone] [facility] No Information Mar-1 3- 4 Management Case. . Referring Provider: Case Management. Consulting Provider: Leslie Matute. [facility], [address] [place] [address], [id number], tel:[phone] [facility] No Information Mar-1 3- 4 Management Case. . Referring Provider: Case Management. Consulting Provider: Leslie Matute. [facility], [address] [place] [address], [id number], tel:[phone] [facility] No Information Mar-0 6- 4 Management Case. . Referring Provider: Case Management. Consulting Provider: Leslie Matute. [facility], [address] [place] [address], [id number], tel:[phone] [facility] No Information Mar-0 - 4 Management Case. . Referring Provider: Case Management. Consulting Provider: Leslie Matute. [facility], [address] [place] [address], [id number], tel:[phone] [facility] No Information 4 Management Case. . Referring Provider: Case Management. Consulting Provider: Leslie Matute. [facility], [address] [place] [address], [id number], tel:[phone] [facility] No Information 4 Management Case. . Referring Provider: Case Management. Consulting Provider: Leslie Matute. [facility], [address] [place] [address], [id number], tel:[phone] [facility] No Information 4 Management Case. . Referring Provider: Case Management. Consulting Provider: Leslie Matute. [facility], [address] [place] [address], [id number], tel:[phone] [facility] No Information 4 Management Case. . Referring Provider: Case Management. Consulting Provider: Leslie Matute. PSYCHOTHERAPY 60 MIN W/PT AND/OR FAMILY MEMBER [facility], [address] [place] [address], [id number], tel:[phone] [facility] Bipolar disorderPost -traumatic stress disorder, chronic 4 Dru Nguyễn. [address] [place] [address], [id number], [place]. tel:[phone] Referring Provider: Gopi Durbin, [address] [place] [address], [id number]. tel:[phone] [facility], [address] [place] [address], [id number], tel:[phone] [facility] No Information 4 Management Case. . Referring Provider: Case Management. Consulting Provider: Leslie Matute. [facility], [address] [place] [address], [id number], tel:[phone] [facility] No Information 4 Management Case. . Referring Provider: Case Management. Consulting Provider: Leslie Matute. PSYCHOTHERAPY 60 MIN W/PT AND/OR FAMILY MEMBER [facility], [address] [place] [address], [id number], tel:[phone] [facility] Post-traumat ic stress disorder, chronicDepre ssionAnxiety 4 Dru Nguyễn. [address] [place] [address], [id number], [place]. tel:[phone] Referring Provider: Gopi Durbin, [address] [place] [address], [id number]. tel:[phone] [facility], [address] [place] [address], [id number], tel:[phone] [facility] No Information 4 Management Case. . Referring Provider: Case Management. Consulting Provider: Leslie Matute. [facility], [address] [place] [address], [id number], tel:[phone] [facility] No Information 4 Management Case. . Referring Provider: Case Management. Consulting Provider: Leslie Matute. [facility], [address] [place] [address], [id number], tel:[phone] [facility] No Information 4 Management Case. . Referring Provider: Case Management. Consulting Provider: Leslie Matute. [facility], [address] [place] [address], [id number], tel:[phone] [facility] No Information 4 Management Case. . Referring Provider: Case Management. Consulting Provider: Leslie Matute. [facility], [address] [place] [address], [id number], tel:[phone] [facility] No Information 4 Management Case. . Referring Provider: Case Management. Consulting Provider: Leslie Matute. [facility], [address] [place] [address], [id number], tel:[phone] [facility] No Information 4 Management Case. . Referring Provider: Case Management. Consulting Provider: Leslie Matute. [facility], [address] [place] [address], [id number], [place] tel:[phone] [facility] No Information 4 Management Case. . Referring Provider: Case Management. Consulting Provider: Leslie Matute. [facility], [address] [place] [address], [id number], tel:[phone] [facility] No Information 4 Management Case. . Referring Provider: Case Management. Consulting Provider: Leslie Matute. [facility], [address] [place] [address], [id number], tel:[phone] [facility] No Information 4 Management Case. . Referring Provider: Case Management. Consulting Provider: Leslie Matute. [facility], [address] [place] [address], [id number], [place] tel:[phone] [facility] No Information 4 Management Case. . Referring Provider: Case Management. Consulting Provider: Leslie Matute. [facility], [address] [place] [address], [id number], tel:[phone] [facility] No Information 3 Management Case. . Referring Provider: Case Management. Consulting Provider: Leslie Matute. [facility], [address] [place] [address], [id number], tel:[phone] [facility] No Information Dec-0 3 Management Case. . Referring Provider: Case Management. Consulting Provider: Leslie Matute. [facility], [address] [place] [address], [id number], tel:[phone] [facility] No Information Dec-0 3 Management Case. . Referring Provider: Case Management. Consulting Provider: Leslie Matute. [facility], [address] [place] [address], [id number], tel:[phone] [facility] No Information Dec-0 3 Management Case. . Referring Provider: Case Management. Consulting Provider: Leslie Matute. PSYCHOTHERAPY 60 MIN W/PT AND/OR FAMILY MEMBER [facility], [address] [place] [address], [id number], tel:[phone] [facility] Post-traumat ic stress disorder, chronicDepre ssionAnxiety 3 Dru Nguyễn. [address] [place] [address], [id number], . tel:[phone] Referring Provider: Gopi Durbin, [address] [place] [address], [id number]. tel:[phone] PSYTX W PT 30 MINUTES [facility], [address] [place] [address], [id number], tel:[phone] [facility] DepressionPo st-traumatic stress disorder, chronicAnxie ty 3 Dru Nguyễn. [address] [place] [address], [id number], [place]. tel:[phone] Referring Provider: Gopi Durbin, [address] [place] [address], [id number]. tel:[phone] [facility], [address] [place] [address], [id number], tel:[phone] [facility] No Information Nov-2 0-202 3 Management Case. . Referring Provider: Case Management. Consulting Provider: Leslie Matute. [facility], [address] [place] [address], [id number], tel:[phone] [facility] No Information Nov1 7-202 3 Management Case. . Referring Provider: Case Management. Consulting Provider: aNjma Belcher. [facility], [address] [place] [address], [id number], [place] tel:[phone] [facility] No Information Nov-0 8-202 3 Management Case. . Referring Provider: Case Management. Consulting Provider: Scarlett Osullivan. [facility], [address] [place] [address], [id number], [place] tel:[phone] [facility] No Information Nov-0 2-202 3 Management Case. . Referring Provider: Case Management. Consulting Provider: Leslie Matute. [facility], [address] [place] [address], [id number], [place] tel:[phone] [facility] No Information Nov-0 2-202 3 Management Case. . Referring Provider: Case Management. Consulting Provider: Leslie Matute. [facility], [address] [place] [address], [id number], [place] tel:[phone] [facility] No Information Nov-0 2-202 3 Management Case. . Referring Provider: Case Management. Consulting Provider: Leslie Matute. [facility], [address] [place] [address], [id number], [place] tel:[phone] [facility] No Information Nov-0 2-202 3 Management Case. . Referring Provider: Case Management. Consulting Provider: Leslie Matute. [facility], [address] [place] [address], [id number], tel:[phone] [facility] No Information 3 Dru Medinan. [address] [place] [address], [id number], [place]. tel:[phone] Referring Provider: Gopi Durbin, [address] [place] [address], [id number]. tel:[phone] lting Provider: Scarlett Osullivan. PSYCHOTHERAPY 60 MIN W/PT AND/OR FAMILY MEMBER [facility], [address] [place] [address], [id number], [place] tel:[phone] [facility] DepressionPo st-traumatic stress disorder, chronicAnxie ty 3 Dru Medinan. [address] [place] [address], [id number], [place]. tel:[phone] Referring Provider: Gopi Durbin, [address] [place] [address], [id number]. tel:[phone] OFFICE/OUTPATI ENT VISIT, EST [facility], [address] [place] [address], [id number], tel:[phone] [facility] Hypertension (chief complaint)an xiety (chief complaint)ar thritis (chief complaint) Anxiety depressionHy pertensionAr thritisAbnor mal finding in urine 3 No Informatio n [facility], [address] [place] [address], [id number], tel:[phone] [facility] No Information 3 Management Case. . Referring Provider: Case Management. Consulting Provider: Najma Belcher. [facility], [address] [place] [address], [id number], tel:[phone] [facility] No Information 3 Management Case. . Referring Provider: Case Management. Consulting Provider: Leslie Matute. [facility], [address] [place] [address], [id number], tel:[phone] [facility] No Information Oct-0 2-202 3 Management Case. . Referring Provider: Case Management. Consulting Provider: Leslie Matute. [facility], [address] [place] [address], [id number], tel:[phone] [facility] No Information Oct-0 2-202 3 Management Case. . Referring Provider: Case Management. Consulting Provider: Leslie Matute. [facility], [address] [place] [address], [id number], [place] tel:[phone] [facility] No Information Oct-0 2- 3 Management Case. . Referring Provider: Case Management. Consulting Provider: Leslie Matute. [facility], [address] [place] [address], [id number], tel:[phone] [facility] No Information Sep-1 2- 3 Management Case. . Referring Provider: Case Management. Consulting Provider: Leslie Matute. [facility], [address] [place] [address], [id number], [place] tel:[phone] [facility] No Information Sep-1 2- 3 Management Case. . Referring Provider: Case Management. Consulting Provider: Leslie Matute. [facility], [address] [place] [address], [id number], [place] tel:[phone] [facility] No Information Sep-1 2- 3 Management Case. . Referring Provider: Case Management. Consulting Provider: Leslie Matute. [facility], [address] [place] [address], [id number], [place] tel:[phone] [facility] No Information Sep-1 2- 3 Management Case. . Referring Provider: Case Management. Consulting Provider: Leslie Matute. [facility], [address] [place] [address], [id number], tel:[phone] [facility] No Information 3 Management Case. . Referring Provider: Case Management. Consulting Provider: Leslie Matute. [facility], [address] [place] [address], [id number], tel:[phone] [facility] No Information 3 Leslye Henriquez. [address] [place] [address], [id number], [place]. tel:[phone] [facility], [address] [place] [address], [id number], [place] tel:[phone] [facility] No Information 3 Management Case. . Referring Provider: Case Management. Consulting Provider: Leslie Matute. [facility], [address] [place] [address], [id number], tel:[phone] [facility] No Information 3 Management Case. . Referring Provider: Case Management. Consulting Provider: Leslie Matute. [facility], [address] [place] [address], [id number], [place] tel:[phone] [facility] No Information 3 Management Case. . Referring Provider: Case Management. Consulting Provider: Leslie Matute. [facility], [address] [place] [address], [id number], tel:[phone] [facility] No Information 3 Management Case. . Referring Provider: Case Management. Consulting Provider: Leslie Matute. [facility], [address] [place] [address], [id number], [place] tel:[phone] [facility] No Information 3 Management Case. . Referring Provider: Case Management. Consulting Provider: Najma Belcher. [facility], [address] [place] [address], [id number], [place] tel:[phone] [facility] No Information 3 Management Case. . Referring Provider: Case Management. Consulting Provider: Leslie Matute. [facility], [address] [place] [address], [id number], tel:[phone] [facility] No Information 3 Management Case. . Referring Provider: Case Management. Consulting Provider: Leslie Matute. [facility], [address] [place] [address], [id number], tel:[phone] [facility] No Information 3 Management Case. . Referring Provider: Case Management. Consulting Provider: Leslie Matute. [facility], [address] [place] [address], [id number], tel:[phone] [facility] No Information 3 Management Case. . Referring Provider: Case Management. Consulting Provider: Leslie Matute. [facility], [address] [place] [address], [id number], tel:[phone] [facility] No Information 3 Management Case. . Referring Provider: Case Management. Consulting Provider: Najma Belcher. PSYCHOTHERAPY 60 MIN W/PT AND/OR FAMILY MEMBER [facility], [address] [place] [address], [id number], tel:[phone] [facility] DepressionPo st-traumatic stress disorder, chronicAnxie ty 3 Dru Nguyễn. [address] [place] [address], [id number], [place]. tel:[phone] Referring Provider: Gopi Durbin, [address] [place] [address], [id number]. tel:[phone] [facility], [address] [place] [address], [id number], tel:[phone] [facility] No Information 3 Management Case. . OFFICE/OUTPATI ENT VISIT, EST [facility], [address] [place] [address], [id number], tel:[phone] [facility] Follow Up of depression (chief complaint)Fo llow Up of Hypertension (chief complaint)me dication (chief complaint)sl eep apnea (chief complaint) Anxiety depressionHy pertensionSl eep apneaNicotin e dependence due to cigarettes 3 No Informatio n [facility], [address] [place] [address], [id number], [place] tel:[phone] [facility] No Information 3 Management Case. . Referring Provider: Case Management. Consulting Provider: Najma Belcher. PSYCHOTHERAPY 60 MIN W/PT AND/OR FAMILY MEMBER [facility], [address] [place] [address], [id number], tel:[phone] [facility] DepressionPo st-traumatic stress disorder, chronicAnxie ty Jul- 3 Dru Nguyễn. [address] [place] [address], [id number], [place]. tel:[phone] Referring Provider: Gopi Durbin, [address] [place] [address], [id number]. tel:[phone] PSYCHOTHERAPY 60 MIN W/PT AND/OR FAMILY MEMBER [facility], [address] [place] [address], [id number], [place] tel:[phone] [facility] DepressionPo st-traumatic stress disorder, chronicAnxie ty 3 Dru Nguyễn. [address] [place] [address], [id number], [place]. tel:[phone] Referring Provider: Gopi Durbin, [address] [place] [address], [id number]. tel:[phone] [facility], [address] [place] [address], [id number], [place] tel:[phone] [facility] No Information 3 Management Case. . Referring Provider: Case Management. Consulting Provider: Leslie Matute. [facility], [address] [place] [address], [id number], tel:[phone] [facility] No Information 3 Management Case. . Referring Provider: Case Management. Consulting Provider: Leslie Matute. [facility], [address] [place] [address], [id number], tel:[phone] [facility] No Information 3 Management Case. . Referring Provider: Case Management. Consulting Provider: Leslie Matute. [facility], [address] [place] [address], [id number], tel:[phone] [facility] No Information 3 Management Case. . Referring Provider: Case Management. Consulting Provider: Leslie Matute. PSYCHOTHERAPY 60 MIN W/PT AND/OR FAMILY MEMBER [facility], [address] [place] [address], [id number], tel:[phone] [facility] DepressionPo st-traumatic stress disorder, chronicAnxie ty 3 Dru Nguyễn. [address] [place] [address], [id number], [place]. tel:[phone] Referring Provider: Gopi Durbin, [address] [place] [address], [id number]. tel:[phone] PSYCHIATRIC DIAGNOSTIC EVAUL [facility], [address] [place] [address], [id number], tel:[phone] [facility] DepressionPo st-traumatic stress disorder, chronicAnxie ty 3 Dru Nguyễn. [address] [place] [address], [id number], [place]. tel:[phone] Referring Provider: Gopi Durbin, [address] [place] [address], [id number]. tel:[phone] PREV VISIT, EST, AGE 40-64 [facility], [address] [place] [address], [id number], tel:[phone] [facility] Preventive Exam (chief complaint)de pression (chief complaint)ca rpal tunnel (chief complaint) Body mass index (BMI) 40.0-44.9, adultEncount er for screening for other disorderEncn tr for general adult medical exam w/o abnormal findingsDepr essionCarpal tunnel syndrome, bilateral upper limbsEncount er for screening mammogram for cancer of breastScreen ing for lung cancerEncoun ter for screening for diabetes mellitusEnco unter for screening for other viral diseasesNico kenneth dependence due to cigarettesEn counter for screening for malignant neoplasm of colonHyperli pidemia, unspecifiedH ypertensionE ncounter for immunization 3 No Informatio n Consulting Provider: Aaliyah Newsome. [facility], [address] [place] [address], [id number], tel:[phone] [facility] No Information 3 No Informatio n Consulting Provider: Pat Krueger. [facility], [address] [place] [address], [id number], tel:[phone] [facility] No Information 0 No Informatio n [facility], [address] [place] [address], [id number], tel:[phone] [facility] Nicotine dependence due to cigarettes Oct-0 0 No Informatio n [facility], [address] [place] [address], [id number], tel:[phone] [facility] Dietary counseling and surveillance 0 No Informatio n OFFICE/OUTPATI ENT VISIT, EST [facility], [address] [place] [address], [id number], [place] tel:[phone] [facility] Follow Up of depression & anxiety (chief complaint)Fo llow Up of hypertension (chief complaint)Fo llow Up of GERD (chief complaint)ot her (chief complaint)kn ee pain (chief complaint) Anxiety depressionIn somniaHypert ensionGERD without esophagitisP ain in right kneeNicotine dependence due to cigarettesEn counter for screening mammogram for cancer of breast 0 No Informatio n [facility], [address] [place] [address], [id number], [place] tel:[phone] [facility] DepressionPo st-traumatic stress disorder, chronic 0 Dru Nguyễn. [address] [place] [address], [id number], [place]. tel:[phone] Referring Provider: Gopi Durbin, [address] [place] [address], [id number]. tel:[phone] PREV VISIT, EST, AGE 40-64 [facility], [address] [place] [address], [id number], tel:[phone] [facility] health maintenance (chief complaint)bi polar disorder (chief complaint)hy pertension (chief complaint) GERD without esophagitisN icotine dependence due to cigarettesMo od disorderHype rlipidemiaEn counter for screening for other viral diseasesEnco unter for screening mammogram for cancer of breastInsomn iaEncntr for general adult medical exam w/o abnormal findingsEnco unter for screening for malignant neoplasm of colonHyperte nsionAllergi c rhinitisCOPD Abnormal finding in urine 0 No Informatio n [facility], [address] [place] [address], [id number], [place] tel:[phone] [facility] No Information 9 Leslye Henriquez. [address] [place] [address], [id number], [place]. tel:[phone] Referring Provider: Campbell Gavin, [address] [place] [address], [facility]. tel:[phone] OFFICE/OUTPATI ENT VISIT, [facility], [address] [place] [address], [id number], tel:[phone] [facility] depression (chief complaint)Es tablish Care (chief complaint) Body mass index (BMI) 38.0-38.9, adultEncount er for general adult medical exam with abnormal findingsDepr essionBipola r disorderHype rcholesterol emiaGERD without esophagitisN icotine dependence, unspecified, uncomplicate dPost-trauma tic stress disorder, chronicInsom niaTremor, unspecifiedE ncounter for screening mammogram for cancer of breast May- 9 Leslye Henriquez. [address] [place] [address], [facility], [place]. tel:[phone] Referring Provider: Campbell Gavin, [address] [place] [address], [facility]. tel:[phone] lting Provider: Pat Krueger. Family History Family Member Type Diagnosis Age At Onset Father Problem (finding) malignant neoplasm of l rodney Mother Problem (finding) Thyroid disorder Father Problem (finding) hypertension Father Problem (finding) Diabetes mellitus Mother Problem (finding) congestive heart failur e Mother Problem (finding) hypertension Immunizations Vaccine Date Status Comments Tdap (Adacel) administered Source: New Im munization Record Pneumococcal conjugate PCV20 administered Source: New Immunization Record Tdap (Adacel) administered Note: Anyi Riley ; Source: Other Provider Payers Payer name Insurance type Covered libertarian ID Authoriza tion(s) [facility] [id number] An[employer] Medicare MB [id number] An[employer] Medicare MB [id number] Social History Type Description Quantity Date Captured Comments Alcohol Use Details Unknown Caffeine Use Details Unknown Tobacco Use Status Smoking Status No Information Sex Female Sexual Orientation Straight or heterosexual Gender Identity Female Chief Complaint And Reason For Visit No Information Reason For Referral Reason For Referral No Information Plan Of Treatment Date Type Action Status Goal Hepatitis C Antibody due Goal HPV. Due on due Goal Thin Prep Pap. Due on due Goal Dietitian Referr al- Abnormal BMI. Due on due Goal PHQ-2. Due on du e Goal Dexa Scan. Due on due Goal Zoster vaccine ( ). Due on due Goal Unhealthy drug u se screening. Due on due Goal Hemosure FIT- no n medicare. Due on due Goal Influenza. Due on due Goal BMI calculated a nd plan documented. Due on due Goal Lipid panel. Due on due Goal Preventative Exam. Due on due Goal Hepatitis C scre ening. Due on due Goal Mammogram (Scree ceci); Bilateral. Due on due Goal Tdap due Goal Hemosure FIT- Me dicare. Due on due Goal Colonoscopy. Due on due Goal BMI calculated a nd plan documented. Due on due Goal Preventative Exam. Due on due Goal Mammogram (Scree ceci); Bilateral. Due on due Goal PHQ-2. Due on du e Goal Hemosure FIT- Me dicare. Due on due Goal Lipid panel. Due on due Goal Dexa Scan. Due on due Goal Hepatitis C scre ening. Due on due Goal Hepatitis C Antibody due Goal Zoster vaccine ( ). Due on due Goal Tdap due Goal HPV. Due on due Goal Influenza. Due on due Goal Dietitian Referr al- Abnormal BMI. Due on due Goal Hemosure FIT- no n medicare. Due on due Goal Unhealthy drug u se screening. Due on due Goal Colonoscopy. Due on due Goal Thin Prep Pap. Due on due Goal Hemosure FIT- no n medicare. Due on due Goal Dietitian Referr al- Abnormal BMI. Due on due Goal Mammogram (Scree ceci); Bilateral. Due on due Goal Hepatitis C scre ening. Due on due Goal Unhealthy drug u se screening. Due on due Goal Hepatitis C Antibody due Goal Colonoscopy. Due on due Goal Zoster vaccine ( ). Due on due Goal Influenza. Due on due Goal BMI calculated a nd plan documented. Due on due Goal Tdap due Goal HPV. Due on due Goal Hemosure FIT- Me dicare. Due on due Goal Thin Prep Pap. Due on due Goal PHQ-2. Due on du e Goal Dexa Scan. Due on due Goal Preventative Exam. Due on due Goal Lipid panel. Due on due Goal Mammogram (Scree ceci); Bilateral. Due on due Goal Dietitian Referr al- Abnormal BMI. Due on due Goal Lipid panel. Due on due Goal Thin Prep Pap. Due on due Goal Hemosure FIT- Me dicare. Due on due Goal Dexa Scan. Due on due Goal BMI calculated a nd plan documented. Due on due Goal Hepatitis C scre ening. Due on due Goal Preventative Exam. Due on due Goal Influenza. Due on due Goal Colonoscopy. Due on due Goal PHQ-2. Due on du e Goal HPV. Due on due Goal Tdap due Goal Unhealthy drug u se screening. Due on due Goal Zoster vaccine ( 1st). Due on due Goal Hepatitis C Antibody due Goal Hemosure FIT- no n medicare. Due on due Goal Zoster vaccine ( 1st). Due on due Goal Preventative Exam. Due on due Goal Dietitian Referr al- Abnormal BMI. Due on due Goal Colonoscopy. Due on due Goal Influenza. Due on due Goal BMI calculated a nd plan documented. Due on due Goal HPV. Due on due Goal Dexa Scan. Due on due Goal Tdap due Goal Mammogram (Scree ceci); Bilateral. Due on due Goal Hemosure FIT- no n medicare. Due on due Goal Hepatitis C scre ening. Due on due Goal Unhealthy drug u se screening. Due on due Goal Thin Prep Pap. Due on due Goal Lipid panel. Due on due Goal Hepatitis C Antibody due Goal Hemosure FIT- Me dicare. Due on due Goal PHQ-2. Due on du e Goal Mammogram (Scree ceci); Bilateral. Due on due Goal Hepatitis C Antibody due Goal Unhealthy drug u se screening. Due on due Goal Influenza. Due on due Goal Dietitian Referr al- Abnormal BMI. Due on due Goal Hemosure FIT- no n medicare. Due on due Goal HPV. Due on due Goal Lipid panel. Due on due Goal PHQ-2. Due on du e Goal Hepatitis C scre ening. Due on due Goal Hemosure FIT- Me dicare. Due on due Goal Tdap due Goal Preventative Exam. Due on due Goal Dexa Scan. Due on due Goal BMI calculated a nd plan documented. Due on due Goal Colonoscopy. Due on due Goal Thin Prep Pap. Due on due Goal Zoster vaccine ( ). Due on due Goal Tdap due Goal Hemosure FIT- Me dicare. Due on due Goal Dexa Scan. Due on due Goal BMI calculated a nd plan documented. Due on due Goal Mammogram (Scree ceci); Bilateral. Due on due Goal Hepatitis C scre ening. Due on due Goal Zoster vaccine ( ). Due on due Goal Hemosure FIT- no n medicare. Due on due Goal Thin Prep Pap. Due on due Goal Dietitian Referr al- Abnormal BMI. Due on due Goal Influenza. Due on due Goal Lipid panel. Due on due Goal Hepatitis C Antibody due Goal HPV. Due on due Goal Unhealthy drug u se screening. Due on due Goal Colonoscopy. Due on due Goal PHQ-2. Due on e Goal Preventative Exam. Due on due Goal Unhealthy drug u se screening. Due on due Goal Hepatitis C Antibody due Goal BMI calculated a nd plan documented. Due on due Goal Thin Prep Pap. Due on due Goal PHQ-2. Due on e Goal Mammogram (Scree ceci); Bilateral. Due on due Goal Dexa Scan. Due on due Goal Hepatitis C scre ening. Due on due Goal Hemosure FIT- no n medicare. Due on due Goal Influenza. Due on due Goal Colonoscopy. Due on due Goal Lipid panel. Due on due Goal HPV. Due on due Goal Dietitian Referr al- Abnormal BMI. Due on due Goal Tdap due Goal Zoster vaccine ( 1st). Due on due Goal Preventative Exam. Due on due Goal Hemosure FIT- Me dicare. Due on due Goal Tdap due Goal Lipid panel. Due on due Goal Dietitian Referr al- Abnormal BMI. Due on due Goal Dexa Scan. Due on due Goal Unhealthy drug u se screening. Due on due Goal Mammogram (Scree ceci); Bilateral. Due on due Goal Hepatitis C Antibody due Goal Preventative Exam. Due on due Goal Influenza. Due on due Goal PHQ-2. Due on du e Goal Hemosure FIT- Me dicare. Due on due Goal Zoster vaccine ( ). Due on due Goal Hemosure FIT- no n medicare. Due on due Goal Hepatitis C scre ening. Due on due Goal BMI calculated a nd plan documented. Due on due Goal Thin Prep Pap. Due on due Goal Colonoscopy. Due on due Goal HPV. Due on due Goal Hemosure FIT- Me dicare. Due on due Goal Thin Prep Pap. Due on due Goal Hemosure FIT- no n medicare. Due on due Goal Dexa Scan. Due on due Goal PHQ-2. Due on du e Goal BMI calculated a nd plan documented. Due on due Goal Hepatitis C Antibody due Goal Zoster vaccine ( ). Due on due Goal Influenza. Due on due Goal Preventative Exam. Due on due Goal HPV. Due on due Goal Dietitian Referr al- Abnormal BMI. Due on due Goal Colonoscopy. Due on due Goal Lipid panel. Due on due Goal Tdap due Goal Mammogram (Scree ceci); Bilateral. Due on due Goal Unhealthy drug u se screening. Due on due Goal Hepatitis C scre ening. Due on due Goal Hemosure FIT- no n medicare. Due on due Goal BMI calculated a nd plan documented. Due on due Goal Zoster vaccine ( 1st). Due on due Goal Hemosure FIT- Me dicare. Due on due Goal Colonoscopy. Due on due Goal HPV. Due on due Goal Mammogram (Scree ceci); Bilateral. Due on due Goal Hepatitis C scre ening. Due on due Goal Dietitian Referr al- Abnormal BMI. Due on due Goal Unhealthy drug u se screening. Due on due Goal Lipid panel. Due on due Goal Dexa Scan. Due on due Goal Influenza. Due on due Goal Preventative Exam. Due on due Goal Tdap due Goal Hepatitis C Antibody due Goal Thin Prep Pap. Due on due Goal PHQ-2. Due on du e Goal Mammogram (Scree ceci); Bilateral. Due on due Goal Tdap due Goal Influenza. Due on due Goal Hemosure FIT- Me dicare. Due on due Goal HPV. Due on due Goal Colonoscopy. Due on due Goal Preventative Exam. Due on due Goal Hepatitis C Antibody due Goal PHQ-2. Due on e Goal Hepatitis C scre ening. Due on due Goal Hemosure FIT- no n medicare. Due on due Goal Dietitian Referr al- Abnormal BMI. Due on due Goal Unhealthy drug u se screening. Due on due Goal BMI calculated a nd plan documented. Due on due Goal Zoster vaccine ( 1st). Due on due Goal Dexa Scan. Due on due Goal Thin Prep Pap. Due on due Goal Lipid panel. Due on due Goal BMI calculated a nd plan documented. Due on due Goal Lipid panel. Due on due Goal Hepatitis C Antibody due Goal Zoster vaccine ( 1st). Due on due Goal Unhealthy drug u se screening. Due on due Goal Preventative Exam. Due on due Goal Tdap due Goal HPV. Due on due Goal Colonoscopy. Due on due Goal Influenza. Due on due Goal PHQ-2. Due on du e Goal Hepatitis C scre ening. Due on due Goal Thin Prep Pap. Due on due Goal Hemosure FIT- no n medicare. Due on due Goal Dietitian Referr al- Abnormal BMI. Due on due Goal Hemosure FIT- Me dicare. Due on due Goal Mammogram (Scree ceci); Bilateral. Due on due Goal Hepatitis C scre ening. Due on due Goal Hemosure FIT- no n medicare. Due on due Goal BMI calculated a nd plan documented. Due on due Goal Tdap due Goal Influenza. Due on due Goal HPV. Due on due Goal Preventative Exam. Due on due Goal Mammogram (Scree ceci); Bilateral. Due on due Goal Colonoscopy. Due on due Goal Unhealthy drug u se screening. Due on due Goal Zoster vaccine ( 1st). Due on due Goal Hepatitis C Antibody due Goal PHQ-2. Due on du e Goal Lipid panel. Due on due Goal Hemosure FIT- Me dicare. Due on due Goal Thin Prep Pap. Due on due Goal Dietitian Referr al- Abnormal BMI. Due on due Goal Preventative Exam. Due on due Goal BMI calculated a nd plan documented. Due on due Goal Thin Prep Pap. Due on due Goal Dietitian Referr al- Abnormal BMI. Due on due Goal Influenza. Due on due Goal PHQ-2. Due on du e Goal Lipid panel. Due on 024 due Goal Hepatitis C Antibody due Goal Colonoscopy. Due on 030 due Goal Zoster vaccine ( ). Due on due Goal Hemosure FIT- Me dicare. Due on due Goal Hemosure FIT- no n medicare. Due on due Goal HPV. Due on due Goal Hepatitis C scre ening. Due on due Goal Unhealthy drug u se screening. Due on due Goal Tdap due Goal Mammogram (Scree ceci); Bilateral. Due on due Goal Preventative Exam. Due on Mi due Goal Hemosure FIT- no n medicare. Due on due Goal Influenza. Due on due Goal Colonoscopy. Due on due Goal Unhealthy drug u se screening. Due on due Goal Lipid panel. Due on 024 due Goal Thin Prep Pap. Due on due Goal Hepatitis C Antibody due Goal HPV. Due on due Goal Dietitian Referr al- Abnormal BMI. Due on due Goal Tdap due Goal Hepatitis C scre ening. Due on due Goal Zoster vaccine ( ). Due on due Goal BMI calculated a nd plan documented. Due on due Goal PHQ-2. Due on du e Goal Hemosure FIT- Me dicare. Due on due Goal Mammogram (Scree ceci); Bilateral. Due on due Goal Colonoscopy. Due on due Goal Mammogram (Scree ceci); Bilateral. Due on due Goal Dietitian Referr al- Abnormal BMI. Due on due Goal Thin Prep Pap. Due on due Goal Hemosure FIT- Me dicare. Due on due Goal Zoster vaccine ( ). Due on due Goal HPV. Due on due Goal Unhealthy drug u se screening. Due on due Goal Lipid panel. Due on 024 due Goal Hepatitis C Antibody due Goal Preventative Exam. Due on due Goal Hepatitis C scre ening. Due on due Goal Influenza. Due on due Goal Hemosure FIT- no n medicare. Due on due Goal BMI calculated a nd plan documented. Due on due Goal PHQ-2. Due on du e Goal Tdap due Goal BMI calculated a nd plan documented. Due on due Goal Tdap due Goal Dietitian Referr al- Abnormal BMI. Due on due Goal Lipid panel. Due on 024 due Goal Colonoscopy. Due on 030 due Goal Hepatitis C Antibody due Goal Influenza. Due on due Goal Mammogram (Scree ceci); Bilateral. Due on due Goal Hepatitis C scre ening. Due on due Goal Hemosure FIT- no n medicare. Due on due Goal Preventative Exam. Due on due Goal Unhealthy drug u se screening. Due on due Goal PHQ-2. Due on du e Goal HPV. Due on due Goal Thin Prep Pap. Due on due Goal Zoster vaccine ( 1st). Due on due Goal Hemosure FIT- Me dicare. Due on due Goal Thin Prep Pap. Due on due Goal BMI calculated a nd plan documented. Due on due Goal Colonoscopy. Due on due Goal Tdap due Goal HPV. Due on due Goal Influenza. Due on due Goal Lipid panel. Due on due Goal Unhealthy drug u se screening. Due on due Goal Hepatitis C scre ening. Due on due Goal Preventative Exam. Due on due Goal Dietitian Referr al- Abnormal BMI. Due on due Goal Hemosure FIT- no n medicare. Due on due Goal Hemosure FIT- Me dicare. Due on due Goal Mammogram (Scree ceci); Bilateral. Due on due Goal Zoster vaccine ( ). Due on due Goal Hepatitis C Antibody due Goal PHQ-2. Due on du e Goal PHQ-2. Due on du e Goal Hemosure FIT- no n medicare. Due on due Goal Influenza. Due on due Goal Lipid panel. Due on due Goal Mammogram (Scree ceci); Bilateral. Due on due Goal Tdap due Goal Thin Prep Pap. Due on due Goal Hemosure FIT- Me dicare. Due on due Goal Zoster vaccine ( 1st). Due on due Goal Hepatitis C scre ening. Due on due Goal Dietitian Referr al- Abnormal BMI. Due on due Goal Unhealthy drug u se screening. Due on due Goal Colonoscopy. Due on 030 due Goal HPV. Due on due Goal Preventative Exam. Due on due Goal Hepatitis C Antibody due Goal BMI calculated a nd plan documented. Due on due Goal PHQ-2. Due on du e Goal Lipid panel. Due on 024 due Goal BMI calculated a nd plan documented. Due on due Goal Preventative Exam. Due on due Goal Tdap due Goal Hepatitis C Antibody due Goal Dietitian Referr al- Abnormal BMI. Due on due Goal Unhealthy drug u se screening. Due on due Goal Influenza. Due on due Goal Hepatitis C scre ening. Due on due Goal Zoster vaccine ( 1st). Due on due Goal Thin Prep Pap. Due on due Goal Hemosure FIT- no n medicare. Due on due Goal Hemosure FIT- Me dicare. Due on due Goal Mammogram (Scree ceci); Bilateral. Due on due Goal HPV. Due on due Goal Colonoscopy. Due on due Goal Hepatitis C Antibody due Goal Dietitian Referr al- Abnormal BMI. Due on due Goal Hemosure FIT- no n medicare. Due on due Goal Influenza. Due on due Goal BMI calculated a nd plan documented. Due on due Goal Mammogram (Scree ceci); Bilateral. Due on due Goal PHQ-2. Due on du e Goal Colonoscopy. Due on due Goal Zoster vaccine ( 1st). Due on due Goal Unhealthy drug u se screening. Due on due Goal Tdap due Goal Hemosure FIT- Me dicare. Due on due Goal Preventative Exam. Due on due Goal HPV. Due on due Goal Thin Prep Pap. Due on due Goal Lipid panel. Due on due Goal Hepatitis C scre ening. Due on due Goal Influenza. Due on due Goal Dietitian Referr al- Abnormal BMI. Due on due Goal Hepatitis C scre ening. Due on due Goal Unhealthy drug u se screening. Due on due Goal Thin Prep Pap. Due on due Goal Hepatitis C Antibody due Goal Zoster vaccine ( ). Due on due Goal Preventative Exam. Due on due Goal Colonoscopy. Due on due Goal Mammogram (Scree ceci); Bilateral. Due on due Goal Hemosure FIT- no n medicare. Due on due Goal HPV. Due on due Goal BMI calculated a nd plan documented. Due on due Goal PHQ-2. Due on du e Goal Tdap due Goal Hemosure FIT- Me dicare. Due on due Goal Lipid panel. Due on due Goal Influenza. Due on due Goal Dietitian Referr al- Abnormal BMI. Due on due Goal Preventative Exam. Due on due Goal Hepatitis C Antibody due Goal Mammogram (Scree ceci); Bilateral. Due on due Goal Thin Prep Pap. Due on due Goal Zoster vaccine ( ). Due on due Goal Tdap due Goal Lipid panel. Due on due Goal Hemosure FIT- Me dicare. Due on due Goal BMI calculated a nd plan documented. Due on due Goal Colonoscopy. Due on due Goal Hepatitis C scre ening. Due on due Goal Hemosure FIT- no n medicare. Due on due Goal HPV. Due on due Goal Unhealthy drug u se screening. Due on due Goal PHQ-2. Due on du e Goal Thin Prep Pap. Due on due Goal Influenza. Due on due Goal Hepatitis C Antibody due Goal Hemosure FIT- no n medicare. Due on due Goal Dietitian Referr al- Abnormal BMI. Due on due Goal Tdap due Goal Preventative Exam. Due on due Goal Lipid panel. Due on due Goal PHQ-2. Due on du e Goal Hepatitis C scre ening. Due on due Goal Unhealthy drug u se screening. Due on due Goal Colonoscopy. Due on due Goal Hemosure FIT- Me dicare. Due on due Goal Mammogram (Scree ceci); Bilateral. Due on due Goal Zoster vaccine ( 1st). Due on due Goal HPV. Due on due Goal BMI calculated a nd plan documented. Due on due Goal Hemosure FIT- Me dicare. Due on due Goal Dietitian Referr al- Abnormal BMI. Due on due Goal Thin Prep Pap. Due on due Goal Lipid panel. Due on due Goal Colonoscopy. Due on due Goal Zoster vaccine ( ). Due on due Goal Hepatitis C Antibody due Goal Mammogram (Scree ceci); Bilateral. Due on due Goal Influenza. Due on due Goal Tdap due Goal Unhealthy drug u se screening. Due on due Goal PHQ-2. Due on du e Goal Hemosure FIT- no n medicare. Due on due Goal HPV. Due on due Goal Preventative Exam. Due on due Goal BMI calculated a nd plan documented. Due on due Goal Hepatitis C scre ening. Due on due Goal Influenza. Due on due Goal Unhealthy drug u se screening. Due on due Goal Hepatitis C Antibody due Goal HPV. Due on due Goal Dietitian Referr al- Abnormal BMI. Due on due Goal Thin Prep Pap. Due on due Goal PHQ-2. Due on du e Goal Zoster vaccine ( ). Due on due Goal Lipid panel. Due on due Goal Hepatitis C scre ening. Due on due Goal Hemosure FIT- Me dicare. Due on due Goal Preventative Exam. Due on due Goal Hemosure FIT- no n medicare. Due on due Goal Tdap due Goal Mammogram (Scree ceci); Bilateral. Due on due Goal Colonoscopy. Due on due Goal BMI calculated a nd plan documented. Due on due Goal Thin Prep Pap. Due on due Goal Influenza. Due on due Goal Mammogram (Scree ceci); Bilateral. Due on due Goal Dietitian Referr al- Abnormal BMI. Due on due Goal Hepatitis C scre ening. Due on due Goal PHQ-2. Due on du e Goal Tdap due Goal Unhealthy drug u se screening. Due on due Goal Zoster vaccine ( ). Due on due Goal HPV. Due on due Goal Hepatitis C Antibody due Goal BMI calculated a nd plan documented. Due on due Goal Hemosure FIT- Me dicare. Due on due Goal Lipid panel. Due on due Goal Preventative Exam. Due on due Goal Hemosure FIT- no n medicare. Due on due Goal Colonoscopy. Due on due Goal Zoster vaccine ( 1st). Due on due Goal Hemosure FIT- no n medicare. Due on due Goal Dietitian Referr al- Abnormal BMI. Due on due Goal Preventative Exam. Due on due Goal PHQ-2. Due on du e Goal Thin Prep Pap. Due on due Goal Unhealthy drug u se screening. Due on due Goal Influenza. Due on due Goal HPV. Due on due Goal BMI calculated a nd plan documented. Due on due Goal Lipid panel. Due on due Goal Colonoscopy. Due on due Goal Mammogram (Scree ceci); Bilateral. Due on due Goal Hepatitis C Antibody due Goal Hemosure FIT- Me dicare. Due on due Goal Hepatitis C scre ening. Due on due Goal Tdap due Goal Hepatitis C scre ening. Due on due Goal Unhealthy drug u se screening. Due on due Goal BMI calculated a nd plan documented. Due on due Goal Thin Prep Pap. Due on due Goal PHQ-2. Due on du e Goal Tdap due Goal Dietitian Referr al- Abnormal BMI. Due on due Goal Mammogram (Scree ceci); Bilateral. Due on due Goal Lipid panel. Due on due Goal Influenza. Due on due Goal HPV. Due on due Goal Hemosure FIT- no n medicare. Due on due Goal Hepatitis C Antibody due Goal Preventative Exam. Due on due Goal Colonoscopy. Due on due Goal Hemosure FIT- Me dicare. Due on due Goal Zoster vaccine ( ). Due on due Goal HPV. Due on due Goal Zoster vaccine ( ). Due on due Goal Unhealthy drug u se screening. Due on due Goal Dietitian Referr al- Abnormal BMI. Due on due Goal Hepatitis C scre ening. Due on due Goal Preventative Exam. Due on due Goal Influenza. Due on due Goal Thin Prep Pap. Due on due Goal Lipid panel. Due on due Goal BMI calculated a nd plan documented. Due on due Goal Tdap due Goal Hepatitis C Antibody due Goal Hemosure FIT- no n medicare. Due on due Goal PHQ-2. Due on du e Goal Hemosure FIT- Me dicare. Due on due Goal Mammogram (Scree ceci); Bilateral. Due on due Goal Colonoscopy. Due on 030 due Goal Mammogram (Scree ceci); Bilateral. Due on due Goal Tdap due Goal Dietitian Referr al- Abnormal BMI. Due on due Goal Influenza. Due on due Goal HPV. Due on due Goal BMI calculated a nd plan documented. Due on due Goal Preventative Exam. Due on due Goal Thin Prep Pap. Due on due Goal Unhealthy drug u se screening. Due on due Goal Hepatitis C Antibody due Goal Hemosure FIT- no n medicare. Due on due Goal Zoster vaccine ( ). Due on due Goal PHQ-2. Due on du e Goal Hemosure FIT- Me dicare. Due on due Goal Colonoscopy. Due on due Goal Hepatitis C scre ening. Due on due Goal Lipid panel. Due on 024 due Goal Hemosure FIT- Me dicare. Due on due Goal Preventative Exam. Due on due Goal PHQ-2. Due on du e Goal Zoster vaccine ( ). Due on due Goal Thin Prep Pap. Due on due Goal Colonoscopy. Due on due Goal Hemosure FIT- no n medicare. Due on due Goal Mammogram (Scree ceci); Bilateral. Due on due Goal Hepatitis C Antibody due Goal Dietitian Referr al- Abnormal BMI. Due on due Goal Influenza. Due on due Goal Tdap due Goal Lipid panel. Due on due Goal BMI calculated a nd plan documented. Due on due Goal Lipid panel. Due on due Goal Hemosure FIT- Me dicare. Due on due Goal Hemosure FIT- no n medicare. Due on due Goal Dietitian Referr al- Abnormal BMI. Due on due Goal Hepatitis C Antibody due Goal Zoster vaccine ( 1st). Due on due Goal Tdap due Goal Mammogram (Scree ceci); Bilateral. Due on due Goal Colonoscopy. Due on due Goal Thin Prep Pap. Due on due Goal Influenza. Due on due Goal PHQ-2. Due on du e Goal Preventative Exam. Due on due Goal BMI calculated a nd plan documented. Due on due Goal Influenza. Due on due Goal BMI calculated a nd plan documented. Due on due Goal Tdap due Goal Colonoscopy. Due on due Goal Lipid panel. Due on due Goal Preventative Exam. Due on due Goal Dietitian Referr al- Abnormal BMI. Due on due Goal Zoster vaccine ( ). Due on due Goal Hepatitis C Antibody due Goal Hemosure FIT- no n medicare. Due on due Goal Thin Prep Pap. Due on due Goal Mammogram (Scree ceci); Bilateral. Due on due Goal Hemosure FIT- Me dicare. Due on due Goal PHQ-2. Due on du e Goal Hepatitis C Antibody due Goal Tdap due Goal Colonoscopy. Due on due Goal Hemosure FIT- Me dicare. Due on due Goal Lipid panel. Due on due Goal Dietitian Referr al- Abnormal BMI. Due on due Goal Preventative Exam. Due on due Goal Hemosure FIT- no n medicare. Due on due Goal PHQ-2. Due on du e Goal Mammogram (Scree ceci); Bilateral. Due on due Goal Influenza. Due on due Goal Zoster vaccine ( ). Due on due Goal Thin Prep Pap. Due on due Goal BMI calculated a nd plan documented. Due on due Goal Mammogram (Scree ceci); Bilateral. Due on due Goal Dietitian Referr al- Abnormal BMI. Due on due Goal Lipid panel. Due on due Goal PHQ-2. Due on e Goal Preventative Exam. Due on due Goal Tdap due Goal Influenza. Due on due Goal Zoster vaccine ( ). Due on due Goal Colonoscopy. Due on due Goal Hemosure FIT- Me dicare. Due on due Goal Hepatitis C Antibody due Goal Thin Prep Pap. Due on due Goal Hemosure FIT- no n medicare. Due on due Goal BMI calculated a nd plan documented. Due on due Goal Hemosure FIT- no n medicare. Due on due Goal Hemosure FIT- Me dicare. Due on due Goal Influenza. Due on due Goal Preventative Exam. Due on due Goal Dietitian Referr al- Abnormal BMI. Due on due Goal Colonoscopy. Due on due Goal PHQ-2. Due on du e Goal Lipid panel. Due on due Goal Zoster vaccine ( 1st). Due on due Goal Mammogram (Scree ceci); Bilateral. Due on due Goal Tdap due Goal Thin Prep Pap. Due on due Goal BMI calculated a nd plan documented. Due on due Goal Hepatitis C Anti body. Due on due Goal Tdap due Goal Colonoscopy. Due on due Goal Hemosure FIT- Me dicare. Due on due Goal Thin Prep Pap. Due on due Goal Mammogram (Isael ornelas); Bilateral. Due on due Goal Dietitian Referr al- Abnormal BMI. Due on due Goal Preventative Exam. Due on due Goal Zoster vaccine ( ). Due on due Goal PHQ-2. Due on du e Goal Hemosure FIT- no n medicare. Due on due Goal BMI calculated a nd plan documented. Due on due Goal Lipid panel. Due on due Goal Hepatitis C Anti body. Due on due Goal Influenza. Due on due Goal PHQ-2. Due on du e Goal Colonoscopy. Due on due Goal Tdap due Goal Hemosure FIT- Me dicare. Due on due Goal Zoster vaccine ( 1st). Due on due Goal Dietitian Referr al- Abnormal BMI. Due on due Goal BMI calculated a nd plan documented. Due on due Goal Mammogram (Scree ceci); Bilateral. Due on due Goal Hemosure FIT- no n medicare. Due on due Goal Lipid panel. Due on due Goal Hepatitis C Anti body. Due on due Goal Influenza. Due on 3 due Goal Preventative Exam. Due on due Goal Thin Prep Pap. Due on due Goal Tobacco cessation counseling completed Goal Colonoscopy. Due on 030 due Goal Thin Prep Pap. Due on due Goal Hepatitis C Anti body. Due on due Goal Dietitian Referr al- Abnormal BMI. Due on due Goal Tdap due Goal Hemosure FIT- no n medicare. Due on due Goal PHQ-2. Due on du e Goal Influenza. Due on 0 due Goal Preventative Exam. Due on Oc due Goal Mammogram (Scree ceci); Bilateral. Due on due Goal Hemosure FIT- Me dicare. Due on due Goal BMI calculated a nd plan documented. Due on due Goal Zoster vaccine ( 1st). Due on due Goal Lipid panel. Due on due Goal Influenza. Due on 0 due Goal Thin Prep Pap. Due on due Goal Mammogram (Scree ceci); Bilateral. Due on due Goal Hepatitis C Anti body. Due on due Goal Tdap. Due on due Goal Lipid panel. Due on due Goal Hemosure FIT- Me dicare. Due on due Goal Zoster vaccine ( ). Due on due Goal Colonoscopy. Due on due Goal BMI calculated a nd plan documented. Due on due Goal Dietitian Referr al- Abnormal BMI. Due on due Goal Preventative Exam. Due on due Goal Hemosure FIT- no n medicare. Due on due Goal PHQ-2. Due on du e Goal Hemosure FIT- Me dicare. Due on due Goal Zoster vaccine ( ). Due on due Goal Tdap. Due on due Goal Preventative Exam. Due on due Goal Influenza. Due on 0 due Goal Hepatitis C Anti body. Due on due Goal BMI calculated a nd plan documented. Due on due Goal Mammogram (Scree ceci); Bilateral. Due on due Goal Lipid panel. Due on due Goal Dietitian Referr al- Abnormal BMI. Due on due Goal PHQ-2. Due on du e Goal Hemosure FIT- no n medicare. Due on due Goal Colonoscopy. Due on due Goal Thin Prep Pap. Due on due Goal Lipid panel. Due on 025 due Goal BMI calculated a nd plan documented. Due on due Goal Preventative Exam. Due on due Goal Tdap. Due on due Goal Thin Prep Pap. Due on due Goal Zoster vaccine ( ). Due on due Goal Hemosure FIT- no n medicare. Due on due Goal Influenza. Due on 0 due Goal Mammogram (Scree ceci); Bilateral. Due on due Goal Colonoscopy. Due on 020 due Goal Dietitian Referr al- Abnormal BMI. Due on due Goal Hepatitis C Anti body. Due on due Goal PHQ-2. Due on du e Goal Hemosure FIT- Me dicare. Due on due Goal Zoster vaccine ( ). Due on due Goal Mammogram (Scree ceci); Bilateral. Due on due Goal Hepatitis C Anti body. Due on due Goal Colonoscopy. Due on 030 due Goal Lipid panel. Due on 025 due Goal Dietitian Referr al- Abnormal BMI. Due on due Goal BMI calculated a nd plan documented. Due on due Goal Preventative Exam. Due on due Goal PHQ-2. Due on du e Goal Influenza. Due on 0 due Goal Hemosure FIT- Me dicare. Due on due Goal Tdap. Due on due Goal Hemosure FIT- no n medicare. Due on due Goal Thin Prep Pap. Due on due Goal Lipid panel. Due on 025 due Goal Thin Prep Pap. Due on due Goal Tdap. Due on due Goal Influenza. Due on 0 due Goal PHQ-2. Due on du e Goal Hemosure FIT- no n medicare. Due on due Goal Preventative Exam. Due on due Goal Hepatitis C Anti body. Due on due Goal BMI calculated a nd plan documented. Due on due Goal Dietitian Referr al- Abnormal BMI. Due on due Goal Hemosure FIT- Me dicare. Due on due Goal Zoster vaccine ( 1st). Due on due Goal Mammogram (Scree ceci); Bilateral. Due on due Goal Hemosure FIT- Me dicare. Due on due Goal Colonoscopy. Due on 019 due Goal PHQ-2. Due on du e Goal Mammogram (Scree ceci); Bilateral. Due on due Goal Lipid panel. Due on 025 due Goal Hemosure FIT- no n medicare. Due on due Goal Tdap. Due on due Goal Hepatitis C Anti body. Due on due Goal Dietitian Referr al- Abnormal BMI. Due on due Goal Preventative Exam. Due on Ap due Goal Thin Prep Pap. Due on due Goal BMI calculated a nd plan documented. Due on due Goal Tobacco cessation counseling completed Goal Lifestyle education regardin g diet completed Referral Ordered: Referrals: Psychiatry. Evaluate and treat ordered Referral Ordered: SLEEP STUDY, ATTENDED Appointment date/timeframe: 08/11/2022 ordered Referral Referred To: Orthopedics/Dr. Monte Ordered: Referrals: Orthopedic Surgery. Orthopedics/Dr. Monte. Evaluate and treat Appointment date/timeframe: 07/22/2022 ordered Referral Ordered: Low Dose CT Scan For Lung Cancer Screening Appointment date/timeframe: 08/09/2022 ordered Referral Ordered: CT THORAX W/O DYE B lung screening Appointment date/timeframe: 11/09/2019 ordered Referral Ordered: Referrals: Orthopedic Surgery. Evaluate and treat Appointment date/timeframe: 10/31/2019 ordered Referral Ordered: SCREENING COLONOSCOPY Appointment date/timeframe: 11/15/2019 ordered Referral Ordered: SCR MAMMO BI INCL CAD ordered Referral Ordered: referred to Counselor 1 Week Appointment date/timeframe: 09/11/2019 ordered Referral Ordered: MAMMOGRAM, SCREENING Appointment date/timeframe: 06/20/2018 ordered Patient Education Depression Treatment: C are Instructio~ completed Patient Education DASH Diet: Care Instruc tions completed Future Order: Lab Order Cologuar d (0000), Ordered on: Ordered Future Order: Lab Order CBC (INC LUDES DIFF/PLT) ([id number]), Scheduled for: Ordered Future Order: Lab Order COMPREHE NSIVE METABOLIC PANEL ([id number]), Scheduled for: Ordered Future Order: Lab Order LIPID PA MIHAI ([id number]), Scheduled for: Apr-27-2019 Ordered Future Order: Lab Order T4, FREE ([id number]), Scheduled for: Ordered Future Order: Lab Order TSH, 3RD GENERATION (119), Scheduled for: Ordered History Of Present Illness Encounter Date Complaint History Of Prese nt Illness Hypertension It is currently stable. Risk factors include depression, obesity and smoking. Associated symptoms include fatigue and headache. Additional information: Pt takes medication as prescribed and is doing well on it. arthritis Location of the pain is bilateral knee. The patient describes the discomfort as achy. It occurs persistently. Symptom is aggravated by activity. The client is experiencing fatigue and headache. Comments: Dee chapin reports arthritis to both knees. Reports has had right knee replaced twice. Is requesting something for arthritis, especially at night. anxiety This is a follow up visit. Related symptoms are poorly controlled. The client presents with anxious/fearful thoughts, depressed mood, difficulty falling asleep, difficulty staying asleep, diminished interest or pleasure, excessive worry, fatigue, feelings of guilt, loss of appetite, racing thoughts and restlessness but denies difficulty concentrating, hallucinations, paranoia or thoughts of or suicide. The anxiety is aggravated by conflict or stress and social interactions. The anxiety is associated with headache. Additional information: Pt states stopped taking the Prozac about a month after taking made her sleep all the time and just felt empty feeling. Pt states would like to try the Vrylar again. sleep apnea Relevant history : a BMI of 39.08. The patient is also experiencing difficulty concentrating, difficulty initiating sleep, difficulty maintaining sleep, headache and snoring (reported by pt.). The patient denies irritability. Follow Up of depress ion (comments) Reports she is seeing Ramakrishna once weekly and says this is really helping. medication Pt reports the P rozac has been making her very sleepy and wanted to see if she could take at night instead of in the morning. Follow Up of depression This is a follow up visit. Related symptoms are unstable. There is improvement of initial symptoms. The patient reports functioning as somewhat difficult. The patient presents with depressed mood, difficulty concentrating, difficulty falling asleep, difficulty staying asleep, diminished interest or pleasure, easily startled, excessive worry, fatigue, feelings of guilt, racing thoughts and restlessness but denies anxious/fearful thoughts, compulsive thoughts, decreased need for sleep, feelings of invulnerability, increased energy, hallucinations,decreased libido, increased libido, loss of appetite, paranoia, poor judgment or thoughts of or suicide. The Follow Up of depression is aggravated by traumatic memories. Interventions the patient has tried have not provided any relief. The Follow Up of depression is associated with chronic pain (knees), headache and sweating. The patient denies any irritability, nausea, trembling, urinary frequency, vomiting and weight gain. Additional information: PHQ-9 score today of 13. Pt reports seeing Ramakrishna once a week and it is really helping her. Pt reports waking up with a headache more often in the last week. Follow Up of Hypertension It is currently stable. Risk factors include depression, obesity and smoking. Associated symptoms include diaphoresis, fatigue and headache. Pertinent negatives include chest pain, claudication, confusion, dyspnea, epistaxis, hematuria, nausea, transient weakness, tremor, visual disturbances, vomiting and edema. Additional information: Pt reports checking BP at home twice a week and says it has not been high at all. Pt reports taking medication as prescribed. sleep apnea (comments) Patient mary bess she was told she had sleep apnea several years ago and used a CPAP but said she got and says did not take her CPAP to her new residence. Reports she has not had in approximately 10 years. Reports others say she snores and they get irritated with it. Preventive Exam The patient stat es she uses hysterectomy for control. Negative for: breast discharge, breast lump(s) and breast pain. Positive for: breast self exam.Postmenopausal. She does not take calcium. She reports taking Vitamin D. She does not take multivitamins. She does not take Folic acid. The patient does use tobacco. Tobacco cessation has been discussed. She does not drink alcohol. Additional information: Pt states is past due for mammogram. Pt states is also past due for CT lung screening. Pt states was going to [facility] and told them about getting setup for these and never heard anything so part of reason is wanting to get est. . carpal tunnel Onset was 1 to 2 years ago. Affected side: bilateral. Presenting/Initial symptoms include decreased allergist strength, numbness in fingers and hand and pain in fingers and hand. Symptoms are aggravated by smoking. Additional information: Pt states had nerve conduction study in [facility] in February and was told abnormal and was supposed to be referred to Dr. Monte but never heard about appt. depression This is a follow up visit. The first episode occurred in 1969. The patient presents with anxious/fearful thoughts, compulsive thoughts, depressed mood, difficulty falling asleep, difficulty staying asleep, diminished interest or pleasure, excessive worry, fatigue, feelings of guilt, racing thoughts and restlessness but denies difficulty concentrating, easily startled, increased energy, hallucinations,decreased libido, increased libido, loss of appetite, paranoia, poor judgment or thoughts of or suicide. The patient's risk factors include family history of depression and family history of anxiety. The patient's risk factors exclude drug abuse. The depression is aggravated by conflict or stress, lack of sleep, social interactions and traumatic memories but not with alcohol use or drug use. Additional information: Pt states talked to kamala Amezquita about starting something and they started on Vrylar and did good for a while but then stopped working as good and told them and never heard anything. Pt states stopped taking about 2 months ago. Pt states was supposed to referral to their counselor but never heard about a. depression (comments) Patient afua thompson is not currently taking anything for depression but says she is willing to try anything. Follow Up of depression & anxiet y Associated symptoms include insomnia. Seroquel started last visit. Has seen counselor x 1 on 10/01/19, WILBER on 10/07. Pt states Seroquel does help but still wakes 2-3 times a night, doesn't really stay asleep but when she wakes up through the night is wanting to eat everything. Says she feels like she has the munchies during the night. Has gained about 9 lb. Trying to be more active. Has been overall sleeping better, getting more sleep, and feels rested in the morning. Says it's helped with mood and anxiety. Has good days and bad days. Follow Up of hypertension It is currently stable. Risk factors include depression, obesity and smoking. Additional information: Resumed losartan 25mg last visit. Home BP cuff was provided. Pt states BP has been doing well at home. other Preventive visit and labs done 08/2019. Smoker. Does pt want to do CT lung screening? yesMammogram and colonoscopy ordered in August - no reports. Scheduled colonoscopy for last week of October; states didn't get mammogram appointment [facility] hasn't called her for mammo. Requested prior PFT results - no report. Refills needed - not at this time. knee pain Onset: 3 weeks a go. Location: right knee. The pain is throbbing. Associated symptoms include swelling. Additional information: Pt states had to go to ER at , states would like to get referral to [facility]; has had total knee replacements in this knee twice last one in 2013. Says it's just extremely sore. No new injury. Dr. Leal did the more recent knee replacement and Dr. Blankenship did 1st one. Follow Up of GERD Additional inf ormation: Started omeprazole last visit. Says it's doing good. hypertension Risk factors inc lude depression and obesity. Additional information: Pt states was treated for last fall but not sure of medication name. bipolar disorder This is a follo w up visit. There is worsening of previously reported symptoms. The patient reports functioning as somewhat difficult. The patient presents with anxious/fearful thoughts, compulsive thoughts, decreased need for sleep, depressed mood, difficulty falling asleep, difficulty staying asleep, easily startled, excessive worry, fatigue, poor judgment, racing thoughts and panic attacks. Additional information: pt states hasn't been on any meds for bipolar since the last time she was seen here. Says she needs help with depression. Says the bipolar diagnosis mainly came from her kids. Really depressed for last 2 months. Wants to lay in bed and cry. Says everything gets to her. Says will have chest pain with. bipolar disorder (comments) Says she has been on lithium, Depakote, Cymbalta (only 30mg), Zoloft, Prozac, Wellbutrin, Paxil and probably citalopram (these either didn't really help or she doesn't remember). Says Seroquel helped her a lot and helped her sleep. She has tried trazodone, which did not seem to help her. Has also tried Effexor, which she believes also helped. She is agreeable to seeing counselor. Says she doesn't sleep. Has seen a counselor in the past. health maintenance Pt want to ge t established as new pt. One prior visit here >1 yr ago, did not follow up. No labs or diagnostics available. Pt states originally from [facility] and saw Dr. Leonard and Dr. Saucedo, but moved to [facility] and hasn't really found a Dr. She liked; last went to [facility] last fall before [facility]. 53 yo FMammogram: 2016 or 17; agreeable; [facility]; has had a biopsy on rightColonoscopy or other colorectal screening: never; agreeable; tried once before and got sick with GoLytelyPap: s/p hysterectomyBone density: N/ACholesterol: has been highPneumonia vaccine: thinks 2017 or 2014Tobacco: yes; does not feel she could quit right nowCT lung screening: discussed todayHepatitis C screening: doesn't think soTd/Tdap: not sureShingles vaccine: never; discussed todaySays she has been diagnosed with COPD. Has had PFTs years ago. Not on any inhalers lately. Was put on medication for high blood pressure in the fall, but can't remember name. Endorses heartburn and belching. Thinks she's taken Nexium before. Says she could not afford meds right now, would have to wait a week or so to get. depression This is an initi al visit. Related symptoms are recurrent. The patient presents with anxious/fearful thoughts, decreased need for sleep, depressed mood, difficulty concentrating, difficulty falling asleep, difficulty staying asleep, diminished interest or pleasure, fatigue and racing thoughts but denies thoughts of or suicide. The patient's risk factors include history of depression. The depression is aggravated by lack of sleep but not with drug use. The depression is associated with irritability. Additional information: Here today for Depression rates 8/10. Denies SI/HI. Inability to sleep. History of bipolar disorder. [facility] Last seen by Dr. Saucedo at [facility] 3 months ago. Last PAP in 2011 and was normal. Last mammogram 2 years ago. Reports she is here today about her depression Functional Status Date Functional Assessmen t No Information Instructions Date Instruction Additional Infor mation Patient had routine urinalysis today that was positive for nitrites. Patient asymptomatic. Will send urine for culture. Related to Abnormal finding in urine Blood pressure appea rs well-controlled.Continue with losartan as prescribed.Monitor blood pressure routinely at home.Go to ER with any chest pain or stroke symptoms.Follow-up 3 months. Sooner if needed. Related to Hypertension Will send in diclofe nac gel to pharmacy.I encourage patient to follow-up with her orthopedic provider. Related to Arthritis Discussed with torsten garza Vraylar typically works best as adjunctive treatment with antidepressant medications to treat depression. Recommended we start patient on antidepressant medication today and did send Lexparo to pharmacy, however patient decided that because she has been on so many different antidepressant medications in the past that she only wants Vraylar. Patient refuses any antidepressant medication if we are not going to send her in Vraylar. I am going to refer patient to psychiatry. She has seen psychiatrist in the past. Patient has appointment with eddie Durbinor, following this appointment.If you are ever suicidal or homicidal, call 911 or go to the nearest emergency department immediately.Follow-up 1 month. Sooner if needed. Related to Anxiety depression Order for sleep study placed. Re lated to Sleep apnea Blood pressure appea rs well-controlled.Continue with losartan as prescribed.Continue monitoring blood pressure routinely at home.Go to ER with any chest pain or stroke symptoms.Follow-up 2 months. Sooner if needed. Related to Hypertension Advised patient she can start taking Prozac at night. Patient is happy with current dose.PHQ-9 is improved today.Continue counseling services with Ramakrishna weekly.Advised patient if she ever felt suicidal or homicidal to call 911 or go directly to emergency room.Follow-up 2 months. Sooner if needed. Related to Anxiety depression Mammogram: Ordered t [facility] 06/30/2022.DEXA: Not applicable.Pap smear: Not applicable. Total hysterectomy. Colonoscopy: Patient declines colonoscopy. Cologuard ordered today 06/30/2022.COVID-19 vaccine: UTD.Influenza vaccine: UTD. Pneumococcal vaccine: Today 06/30/2022. PCV20.Shingles vaccine: Patient reports is going to pharmacy to get this vaccine.Tetanus immunization: Today 06/30/2022. Tdap.Tobacco use: Patient reports she currently smokes 1 pack of cigarettes daily. Reports has smoked since she was [address] lung cancer screening: Ordered today 06/30/2022.Hepatitis C screening: Today 06/30/2022.HIV screening: Today 06/30/2022. Related to Encntr for general adult medical exam w/o abnormal findings Patient instructed t o apply 1 nicotine transdermal patch every 24 hours. Patient instructed to remove current patch before applying new patch. Instructed patient to start patches on cigarette quit day. Discussed appropriate areas for patch placement with patient.Advised patient to place in different areas each day to avoid skin irritation. Related to Nicotine dependence due to cigarettes Will send referral to Dr. Monte. Related to Carpal tunnel syndrome, bilateral upper limbs Continue with rosuva statin as prescribed.Follow-up 3 months. Sooner if needed. Related to Hyperlipidemia, unspecified Continue with losart an as prescribed.Check blood pressure routinely at home.Acceptable blood pressure parameters discussed. Avoid exposure to tobacco smoke and/or polluted air. Go to ER with any chest pain or stroke symptoms.Follow-up 3 months. Sooner if needed. Related to Hypertension Start Prozac as pres cribed.Patient is scheduled to see our counseling services within 1 week.Advised patient if they ever felt suicidal or homicidal to call 911 or go to the nearest emergency department immediately.Follow-up with me in 1 month. Sooner if needed. Related to Depression Giving encouragement to exercise Related to Body mass index [BMI] 40.0-44.9, adult Re-ordering mammogram. Related t o Encounter for screening mammogram for cancer of breast Requesting records f rom [facility]. Referring to Ortho. Related to Pain in right knee Continue omeprazole. Related to GERD without esophagitis Continue losartan. Related to Hy pertension While you are alread y taking the Seroquel, will try increasing to 100mg to see if you can sleep through the night without waking & eating. Increase dietary water and fiber. Phone f/u in [address] meeting with pt briefly today. Related to Insomnia Increase Seroquel to 100mg (can take two of the 50mg if you have some left) every evening as noted below and monitor effects. Add Effexor XR 37.5mg once daily. Schedule follow up with counselor. Related to Anxiety depression Will try to get prio r PFT results. Consider inhalers. Related to COPD Sending Rx today for loratadine daily as needed. Related to Allergic rhinitis Checking with [facility] on prior medication. Providing home BP cuff. Resume losartan 25mg daily - sent to [facility] today to voucher. Related to Hypertension Ordering colonoscopy. Related to Encounter for screening for malignant neoplasm of colon Ordering mammogram. Related to E ncounter for screening mammogram for cancer of breast Screen for HCV with today's labs . Related to Encounter for screening for other viral diseases Start Seroquel 50mg before bed. Related to Insomnia Referring to halfway house counselor or. Will start Seroquel 50mg before bed today and plan to add Effexor when we get blood pressure down some. Related to Mood disorder Check lipids today with labs. Re lated to Hyperlipidemia Sending omeprazole t o [facility] for today. Related to GERD without esophagitis Please request prior PFT results . Related to COPD Need to check fastin g labs. We have discussed colon cancer screening options. Related to Encounter for general adult medical exam with abnormal findings Apr-22-2019 Will address at next visit. Rela jarett to Tremor, unspecified Will try on Remeron 15 mg at bedtime. Related to Insomnia Plan for fasting labs. Related t o Hypercholesterolemia Will order Cymbalta 30 mg once daily. F/U in 1 month. We have discussed med use an effects. Related to Depression Giving encouragement to exercise Related to Body mass index (BMI) 38.0-38.9, adult Lifestyle education regarding di et Related to Body mass index (BMI) 38.0-38.9, adult Assessments Type Assessment Date No Information Goals Health Concern Goal Type Priority Status Date Depression; Patient needs education for depression management. Patient will be able to manage depression. Patient Goal Complete Patient Care Teams Name Effective Dates (start - stop) Status Members Leslye - active Kelly chapin, [address] [place] [address], [facility].Natalie Pena, [address] [place] [address], [facility].Nelly Cabral.Tammi Segal.[Professional nurse] Campbell Gavin, [address] [place] [address], [facility].(Lead) Kyrie - active Tammi Segal.Xochilt Lan.Liliana Mittal, [address] [place] [address], [facility].(Lead)Dano Vaughn, [address] [place] [address], [facility].
--- NOTE | 2024-12-24 15:02 | XR_ITS ---
FINAL REPORT CLINICAL HISTORY: left knee pain FINDINGS: AP, lateral and oblique views of the left knee were obtained. There is no prior exam for comparison. There is no acute osseous abnormality of the left knee. There is medial compartment arthroplasty. There is a small joint effusion. There is mild patellofemoral narrowing. There is sprain of the lateral compartment. The soft tissues are normal. There is no joint effusion. IMPRESSION: Postoperative and degenerative findings with no acute osseous abnormality. Reviewed, Interpreted and Dictated by Jim Vo MD Transcribed by JULITA Soler Authenticated and [facility]
== END 2024-12-24 23:59 | disposition home or self-care (01) ==
LOC: RAD 15:00
PROVIDERS: PCP Nurse Practitioner; Visit Provider Physician Assistant Surgical
DX: M17.12 Unilateral primary osteoarthritis, left knee (principal); S83.422A Sprain of lateral collateral ligament of left knee, initial encounter; X58.XXXA Exposure to other specified factors, initial encounter; Z98.890 Other specified postprocedural states
CPT/HCPCS: 73562

== ENCOUNTER 2025-02-12 14:35 | Outpatient (CLI) | payer MEDICARE, MEDICAID, SELFPAY ==
--- OUTSIDE RECORDS SUMMARY | 2025-02-12 14:39 | XMS_ITS | Clinical Summary ---
Author Organization [facility] Address [address] [id number] Care Team Providers Care Transition Manager Name Role Phone Tony Leonard MD Primary Care Provider [phone] Allergies No known active allergies Medications methocarbamol (Robaxin) 500 MG tablet Take 1 tablet by mouth 4 times a day as needed for muscle spasms. 28 tablet 11/11/2024 Active Family History Medical History Relation Name Comments Lung cancer Father Cardiac disorder Mother Conversions - Other Mother Patient' s mother is Heart failure Mother Relation Name Status Comments Father Mother Social History Tobacco Use Types Packs/Day Years Used Date Smoking Tobacco: Every Day Comments Unknown Sex and Gender Information Value Date Recorded Sex Assigned at Not on file Legal Sex Female 8:27 PM EDT Gender Identity Not on file Sexual Orientation Not on file Last Filed Vital Signs Vital Sign Reading Time Taken Comments Blood Pressure 149/80 11/11/2024 1:03 AM EDT Pulse 70 11/11/2024 1:03 AM EDT Temperature 36.8 C (98.2 F) 11/10/2024 10:29 PM EDT Respiratory Rate 18 11/11/2024 1:03 AM EDT Oxygen Saturation 98% 11/11/2024 1:03 AM EDT Inhaled Oxygen Concentration - - Weight 112 kg (246 lb 7.6 oz) 11/10/2024 10:29 P M EDT Height 160 cm (5' 3 ) 11/10/2024 10:29 PM EDT Body Mass Index 43.66 11/10/2024 10:29 PM EDT Plan of Treatment Health Maintenance Due Date Last Done Comments [facility]-Depression Screening 1965 [facility]-HIV Screening 1965 [facility]-Hepatitis C Screening 1965 [facility]-Medicare Annual Wellness (AWV) 1965 [facility]-Infant/Child/Adol SDOH Screenings 1965 [facility]-Obesity Intervention 10/27/1969 [facility]- SDOH Screenings 10/27/1981 [facility]-Adult SDOH Screenings 10/27/1981 CT Colonography 10/27/2008 Colonoscopy 10/27/2008 FIT-DNA 10/27/2008 FIT 10/27/2008 FOBT 10/27/2008 Sigmoidoscopy 10/27/2008 [facility]-Colorectal Cancer Screening 10/27/2008 [facility]-Pneumococcal Vaccine: 50 + Years (1 of 1 - PCV) 10/27/2013 [facility]-RSV Vaccine: 60+ Years o r (1 - Risk 50-74 years 1-dose series) 10/27/2013 [facility]-Zoster Vaccines (1 of 2) 10/27/2013 [facility]-Breast Cancer Screening 11/08/2021 11/09/2019 [id number] Vaccine (1 - 20 25-26 season) 2024 [facility]-Influenza Vaccine (#1) 2024 [facility]-DTaP,Tdap,and Td Vaccine s (2 - Td or Tdap) 12/16/2029 12/17/2019 HPV Vaccines (No Doses Required) Completed [facility]-HIB Vaccines Aged Out No longer e ligible based on patient's age to complete this topic [facility]-Hepatitis A Vaccines Aged Out No longer eligible based on patient's age to complete this topic [facility]-IPV Vaccines Aged Out No longer e ligible based on patient's age to complete this topic [facility]-Rotavirus Vaccines Aged Out No lo nger eligible based on patient's age to complete this topic Insurance MEDICARE [employer] Care Teams Transition Manager Relationship Specialty Start Date End Date Tony Leonard MD [phone] PCP - General 07/04/20
--- OUTSIDE RECORDS SUMMARY | 2025-02-12 14:39 | XMS_ITS | Clinical Summary ---
Author Organization [facility] Address [address], [address] [place] [address] Care Team Providers Care Manager Corporate Communications Name Role Phone Stephanie Ramos APRN - [...] place to sleep or slept in a long-term (including now)? No 06/13/2023 Food Insecurity Answer [...] - 200 mg/dL 07/19/2023 11:41 AM EDT [facility] Triglycerides 111 0 - 249 mg/dL 07/19/19 24 11:41 AM EDT [facility] HDL 39(L) 40 - 60 mg/dL 07/19/2023 11:41 AM EDT [facility] Comment: An HDL cholesterol less than 40 mg/dL is low and constitutes a coronary heart disease risk factor. An HDL cholesterol greater than 60 mg/dL is a negative risk factor for coronary heart disease. LDL Cholesterol 73 <100 mg/dL 11:41 AM EDT [facility] VLDL Cholesterol Calculated 22 Not Established mg/dL 07/19/2023 11:41 AM EDT [facility] Blood BLOOD SPECIMEN / Unknown 07/19/2023 9:35 AM EDT 07/19/2023 11:37 AM EDT us Stephanie Ramos FISHING BOAT CAPTAIN - AIR/OCEAN EXPORT CLERK CHEMISTRY ORDERABLES Fin al Result Performing Organization Address City/[facility]/ZIP Co de Phone Number [facility] [address] [phone] * Hemoglobin A1C (12/23/2022 3:25 PM EDT) Hemoglobin A1C 5.5 See comment % 12/24/2022 11:01 AM EDT [facility] Comment: Comment: Diagnosis of Diabetes: > or = 6.5% Increased risk of diabetes (Prediabetes): 5.7-6.4% Glycemic Control: Non Adults: <7.0% : <6.0% Blood BLOOD SPECIMEN / Unknown 12/23/2022 3:25 PM EDT 12/24/2022 11:54 AM EDT us Georgie Gipson FISHING BOAT CAPTAIN - FRONT END ARCHITECT CHEMISTRY ORDERABLES Fin al Result [facility] [address] [phone] * HM MAMMOGRAPHY (07/13/2022) Anatomical Region Laterality Modality Other Historical Provider HEALTH MAINTENANCE Final Result from Last 3 Months or Most Recently Relevant to Health Maintenance Insurance BCBS MEDICARE on file Care Teams Manager Corporate Communications Relationship Specialty Start Date End Date Stephanie Ramos APRN - NP [address] [place] [address] PCP - General Nurse Practitioner 06/13/23
--- OUTSIDE RECORDS SUMMARY | 2025-02-12 14:39 | XMS_ITS | Encounter Summary ---
Author Organization [facility] Address [address], [address] [place] [address] Care Team Providers Care Avionics Shop Supervisor Name Role Phone Stephanie Ramos APRN - REMOTE SENSING PROGRAM MANAGER Primary Care Provider + Encounter Details Date Type Department Care Team (Late st Contact Info) Description 12/24/2022 Orders Only [address] [address] Provider, MD [place] Social History [...] place to sleep or slept in a penitentiary (including now)? No 12/23/2022 Food Insecurity Answer [...] on filedocumented in this encounter Care Teams Avionics Shop Supervisor Relationship Specialty Start Date End Date Stephanie Ramos APRN - NP [address] [place] [address] PCP - General Nurse Practitioner 06/13/23 documented as of this encounter
--- NOTE | 2025-02-12 14:40 | XR_ITS ---
FINAL REPORT TECHNIQUE: 2 view chest CLINICAL HISTORY: SOA Pre op Smoker since 15 y/o COMPARISON: Single view chest 10/21/2023 FINDINGS: No acute pulmonary density is evident. There is no evidence of effusion or other pleural disease. The mediastinum has a normal appearance. The cardiac silhouette is unremarkable. IMPRESSION: Unremarkable chest exam. Reviewed, Interpreted and Dictated by Abby Shaw MD Transcribed by Carmen Meza Authenticated and [facility]
== END 2025-02-12 23:59 ==
LOC: RAD 14:36
PROVIDERS: PCP Nurse Practitioner; Visit Provider Nurse Practitioner
DX: Z01.818 Encounter for other preprocedural examination (principal); R06.02 Shortness of breath; F17.210 Nicotine dependence, cigarettes, uncomplicated
CPT/HCPCS: 71046